=== PATIENT | male | born 1955 | race Two or more races ===

== ENCOUNTER 2023-07-12 18:10 | Emergency (ER) | payer MEDICARE ==
[2023-07-12 18:57] LABS: BILIRUBIN,URINE SMALL (NEGATIVE); GLUCOSE, URINE (UA) NEGATIVE (NEGATIVE); KETONES,URINE (UA) NEGATIVE (NEGATIVE); LEUKOCYTE ESTERASE, URINE MODERATE (NEGATIVE); NITRITE,URINE NEGATIVE (NEGATIVE); OCCULT BLOOD,URINE LARGE (NEGATIVE); PH,URINE 5.5 PH (5.0-7.5); PROTEIN,URINE 100 mg/dL (NEGATIVE); UROBILINOGEN,URINE 0.2 (NORMAL) E.U./dL (NORMAL)
[2023-07-12 18:58] LABS: CLARITY,URINE CLOUDY (CLEAR)
[2023-07-12 19:07] LABS: BACTERIA,URINE Moderate /HPF (None Seen); RBC,URINE TNTC /HPF (0-5); SQUAMOUS EPITHELIAL CELL,UR NONE SEEN (<= Few); WBC,URINE >25 /HPF (0-3)
[2023-07-12] MEDS ORDERED: levoFLOXacin 250 MG TABLET PO STA (20:17)
--- NOTE | 2023-07-12 20:19 | ED Physician Documentation ---
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 Subsequently developed hydronephrosis on the right and has a nephrostomy in place and is getting chemotherapy. For about 2 days has had urinary burning and dysuria as well as frequency. He denies fever, flank pain or general feeling of illness otherwise. No decreased output from his nephrostomy. PD PAST MEDICAL HISTORY - Past Medical History Past Medical History: Yes Other Past Medical History: Grade 1 folicular lymphoma. - Past Surgical History Past Surgical History: Yes - Present Medications Home Medications: Ambulatory Orders Medication Instructions Recorded Confirmed levoFLOXacin [Levofloxacin] 500 mg PO DAILY #9 tablet 07/12/23 - Allergies Allergies/Adverse Reactions: Allergies Allergy/AdvReac Type Severity Reaction Status Date / Time No Known Drug Allergies Allergy Verified 07/12/23 18:28 - Social History Does the pt smoke?: No Smoking Status: Never smoker PD ED PE NORMAL - Vitals Vital signs reviewed: Yes - General General: Alert and oriented X 3, No acute distress - Abdomen Abdomen: Normal bowel sounds, Soft, Non tender - Back Back: Other (Nephrostomy site looking good without redness.) - Neuro Neuro: Alert and oriented X 3, Normal speech Results - Vitals Vitals: Vital Signs - 24 hr 07/12/23 18:19 Temperature 36.4 C L Heart Rate 65 Respiratory 16 Rate Blood Pressure 156/52 H O2 Saturation 99 Oxygen O2 Source Room air - Labs Labs: Laboratory Tests 07/12/23 18:35 Urine Color DARK YELLOW Urine Clarity CLOUDY Urine pH 5.5 Ur Specific [place] 1.025 Urine Protein 100 H Urine Glucose (UA) NEGATIVE Urine Ketones NEGATIVE Urine Occult Blood LARGE H Urine Nitrite NEGATIVE Urine Bilirubin SMALL H Urine Urobilinogen 0.2 (NORMAL) Ur Leukocyte Esterase MODERATE H Urine RBC TNTC H Urine WBC >25 H Ur Squamous Epith Cells NONE SEEN Urine Bacteria Moderate H Ur Microscopic Review INDICATED Urine Culture Comments INDICATED PD Medical Decision Making - ED course ED course: I doubt he has a severe UTI or pyelonephritis. He has no flank pain. No systemic symptoms. Did advise that since he has a nephrostomy he could call his urologist tomorrow as they might want to do a tube exchange but given that he appears well I do not think this is necessary now. Departure - Departure Disposition: 01 Home, Self Care Clinical Impression: Cystitis Condition: Good Instructions: ED UTI Cystitis Male Prescriptions: levoFLOXacin [Levofloxacin] 500 mg PO DAILY #9 tablet Comments: I would recommend you call your urologist tomorrow. They may want to do a tube exchange from your nephrostomy, but I do not think this is necessary now as you do not have systemic symptoms of illness like fever or increased pain of that kidney. We will culture your urine, the results should be done in 48-72 hours. If an antibiotic change is necessary we will call you. Return if worse in the meant jessica, especially if you develop increasing flank pain, fevers, or cannot keep down the medication.
[2023-07-12 20:36] VITALS: BP 153/59; O2SAT 100
== END 2023-07-12 20:34 | disposition home or self-care (01) ==
LOC: ED 18:10
DX: N30.90 Cystitis, unspecified without hematuria (principal); Z93.6 Other artificial openings of urinary tract status
CPT/HCPCS: 81001; 87086; 99283; A9270; 81003

== ENCOUNTER 2023-07-15 11:35 | Emergency (ER) | payer MEDICARE ==
--- NOTE | 2023-07-15 12:20 | XRAY Report ---
PROCEDURE: Chest 1V INDICATIONS: fever TECHNIQUE: One view of the chest was acquired. COMPARISON: None. FINDINGS: Surgical changes and devices: Right-sided Port-A-Cath. Lungs and pleura: No pleural effusions or pneumothorax. Lungs are clear. Mediastinum: Mediastinal contours appear normal. Heart size is normal. Bones and chest wall: No suspicious bony lesions. Overlying soft tissues appear unremarkable. IMPRESSION: No acute cardiopulmonary process. Reviewed by: Aretha Love MD, PhD on 07/15/2023 12:19 PM PST Approved by: Aretha Love MD, PhD on 07/15/2023 12:[address] [facility] Station ID: [id number]
--- NOTE | 2023-07-15 12:33 | ED Physician Documentation ---
History of Present Illness - Stated complaint Stated Complaint: LOW BP - Chief complaint Chief Complaint: General - Additonal information Additional information: 68-year-old gentleman presents to the emergency department today for dizziness and hypertension. 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 He has had a nephrostomy tube since June 22 draining He has had no complications or issues with this since then. He was seen here about a week ago for urinary tract infection was started on levofloxacin reports all symptoms have fully resolved since then.Patient reports he has received 1 dose of IV chemo about a week ago with [facility] he started to feel dizzy this morning took his blood pressure at home was found to be hypotensive systolic blood pressure 90 with a fever of 100.4. No syncopal episode. Urinalysis grew Pseudomonas aeruginosa and Enterobacter both sensitive to levofloxacin. PD PAST MEDICAL HISTORY - Past Medical History Past Medical History: Yes Other Past Medical History: lymphoma - Past Surgical History Past Surgical History: Yes - Present Medications Home Medications: Ambulatory Orders Medication Instructions Recorded Confirmed Atorvastatin [Lipitor] 20 mg PO QPM 07/12/23 07/12/23 Brimonidine Tartrate 1 drops EACHEYE TID 07/12/23 07/12/23 Lisinopril [Zestril] 10 mg PO DAILY 07/12/23 07/12/23 Magnesium Oxide [Magnesium] 1 cap PO DAILY 07/12/23 07/12/23 Ondansetron [Ondansetron Odt] 8 mg PO Q6HR PRN 07/12/23 07/12/23 Tamsulosin [Flomax] 0.4 mg PO DAILY 07/12/23 07/12/23 allopurinoL [Allopurinol] 300 mg PO DAILY 07/12/23 07/12/23 levoFLOXacin [Levofloxacin] 500 mg PO DAILY #9 tablet 07/12/23 - Allergies Allergies/Adverse Reactions: Allergies Allergy/AdvReac Type Severity Reaction Status Date / Time No Known Drug Allergies Allergy Verified 07/15/23 11:45 - Social History Does the pt smoke?: No Smoking Status: Never smoker Does the pt drink ETOH?: No Does the pt have substance abuse?: No - Immunizations Immunizations are current?: Yes - POLST Patient has POLST: No PD ED PE NORMAL - Vitals Vital signs reviewed: Yes - General General: Alert and oriented X 3, No acute distress, Well developed/nourished - HEENT HEENT: Atraumatic, PERRL, EOMI - Neck Neck: Supple, no meningeal sign, No JVD - Cardiac Cardiac: RRR, No murmur, Strong equal pulses - Respiratory Respiratory: No respiratory distress, Clear bilaterally - Abdomen Abdomen: Normal bowel sounds, Non tender, Other (Left nephrostomy tube, incision site does not appear to be infected, no purulent drainage no erythema) - Back Back: No CVA TTP - Derm Derm: Normal color, Warm and dry, No rash - Extremities Extremities: No deformity, No edema - Neuro Neuro: Alert and oriented X 3, back tufter 2-12 intact, No motor deficit, No sensory deficit, Normal speech - Psych Psych: Normal mood Results - Vitals Vitals: Vital Signs - 24 hr 07/15/23 07/15/23 07/15/23 11:41 13:30 14:51 Temperature 36.0 C L Heart Rate 70 55 L 54 L Respiratory 20 15 20 Rate Blood Pressure 117/50 L 126/58 L 117/66 O2 Saturation 100 100 98 Oxygen O2 Source Room air - EKG (time done) 1147 EKG releavant findings:: EKG personally interpreted by author of this note. Relevant findings are: Rate: Rate (enter#) (62) Rhythm: NSR [place]: Normal Intervals: Normal [place] QRS: Normal Ischemia: Normal ST segments Computer interpretation: Agree with computer - Labs Labs: Laboratory Tests 07/15/23 07/15/23 07/15/23 12:21 12:27 12:27 WBC 13.2 H RBC 4.36 L Hgb 12.1 L Hct 37.6 L MCV 86.2 MCH 27.8 MCHC 32.2 RDW 13.2 Plt Count 227 MPV 10.1 Neut # (Auto) 10.9 H Lymph # (Auto) 0.2 L [place] # (Auto) 1.5 H Eos # (Auto) 0.3 Baso # (Auto) 0.0 Absolute Nucleated RBC 0.00 Nucleated RBC % 0.0 Sodium 133 L Potassium 3.9 Chloride 99 L Carbon Dioxide 26 Anion Gap 8.0 BUN 20 Creatinine 1.4 H Estimated GFR (MDRD) 50 L Glucose 104 Lactic Acid 1.6 Calcium 9.3 Total Bilirubin 0.6 AST 25 ALT 42 Alkaline Phosphatase 60 Total Protein 6.6 Albumin 3.8 Globulin 2.8 Albumin/Globulin Ratio 1.4 Nasal Adenovirus (PCR) Nasal B. parapertussis DNA (PCR) Nasal Coronavir 229E PCR Nasal Coronavir HKU1 PCR Nasal Coronavir NL63 PCR Nasal Coronavir OC43 PCR Nasal Enterovir/Rhinovir PCR Nasal Influenza B PCR Nasal Influenza A PCR Nasal Parainfluen 1 PCR Nasal Parainfluen 2 PCR Nasal Parainfluen 3 PCR Nasal Parainfluen 4 PCR Nasal RSV (PCR) Nasal B.pertussis DNA PCR Nasal C.pneumoniae (PCR) Srinivas Human Metapneumo PCR Nasal M.pneumoniae (PCR) Nasal SARS-CoV-2 (PCR) 07/15/23 13:06 WBC RBC Hgb Hct MCV MCH MCHC RDW Plt Count MPV Neut # (Auto) Lymph # (Auto) [place] # (Auto) Eos # (Auto) Baso # (Auto) Absolute Nucleated RBC Nucleated RBC % Sodium Potassium Chloride Carbon Dioxide Anion Gap BUN Creatinine Estimated GFR (MDRD) Glucose Lactic Acid Calcium Total Bilirubin AST ALT Alkaline Phosphatase Total Protein Albumin Globulin Albumin/Globulin Ratio Nasal Adenovirus (PCR) NOT DETECTED Nasal B. parapertussis DNA (PCR) NOT DETECTED Nasal Coronavir 229E PCR NOT DETECTED Nasal Coronavir HKU1 PCR NOT DETECTED Nasal Coronavir NL63 PCR NOT DETECTED Nasal Coronavir OC43 PCR NOT DETECTED Nasal Enterovir/Rhinovir PCR NOT DETECTED Nasal Influenza B PCR NOT DETECTED Nasal Influenza A PCR NOT DETECTED Nasal Parainfluen 1 PCR NOT DETECTED Nasal Parainfluen 2 PCR NOT DETECTED Nasal Parainfluen 3 PCR NOT DETECTED Nasal Parainfluen 4 PCR NOT DETECTED Nasal RSV (PCR) NOT DETECTED Nasal B.pertussis DNA PCR NOT DETECTED Nasal C.pneumoniae (PCR) NOT DETECTED Srinivas Human Metapneumo PCR NOT DETECTED Nasal M.pneumoniae (PCR) NOT DETECTED Nasal SARS-CoV-2 (PCR) NOT DETECTED - Rads (name of study) Chest x-ray Relevant Findings:: Final report received, EMP independent interpretation of test (No acute cardiopulmonary abnormalities, no consolidation) PD Medical Decision Making - ED course ED course: 68-year-old male presents to the emergency department for fever and dizziness. He was given 1 L of IV fluids which patient reports made him feel significantly better and his dizziness is now almost entirely resolved. Patient does have slight leukocytosis, WBC 13.2, hemoglobin also slightly low, 12.1, hematocrit 37.6. Sodium is also slightly low most likely due to dehydration, 133 and Creatinine1.4, GFR 50. Respiratory panel is negative. Chest x-ray was also completed which did not reveal any consolidation or other acute abnormalities that could be contributing to patient's reported fever he had at home. He did not have any fevers here in the emergency department but 2 sets of blood cultures were collected for further evaluation of his fever. Be cause patient is already on antibiotics for his UTI, he is on day 3 of levofloxacin I decided to hold off on adding any additional antibiotics at this time. Patient was informed that his blood cultures will take 2 to 3 days to grow and we will call him if any antibiotic changes need to happen or patient needs to come back to the emergency department for IV antibiotics. Patient was told to monitor his vitals and his fever at home and if his fever returns to come back to the emergency department.Patient understands strict return precautions and was told to follow-up with his oncologist at [facility] about his emergency department visit, his fever, and antibiotics that he is on. All questions answered patient safe for discharge at this time. Departure - Departure Disposition: 01 Home, Self Care Clinical Impression: Fever of unknown origin, Dehydration Follicular lymphoma Qualifiers: Follicular lymphoma type: unspecified follicular type Lymphoma site: unspecified region Qualified Code(s): C82.90 - Follicular lymphoma, unspecified, unspecified site Condition: Good Instructions: ED Dehydration Comments: Thank you for trusting us with your care. You have received some IV fluids and you have appeared to respond well to these and your dizziness has now resolved. We did collect 2 sets of blood cultures and have sent it to the lab as we discussed this takes 2 to 3 days we will call you if there are any abnormal results. Please follow-up with your oncologist to let them know about your ER visit and further evaluation of your fever. Continue to take the levofloxacin antibiotic that you are on for your UTI and please come back to the emergency department for continuing to spike fevers, persistent dizziness, or any other concerning symptoms. Forms: PCP List Discharge Date/Time: 07/15/23 14:56
[2023-07-15 12:36] LABS: BASOPHILS % (AUTO) 0.3 %; EOSINOPHILS # (AUTO) 0.3 10^3/uL (0.0-0.7); EOSINOPHILS % (AUTO) 1.9 %; HCT - HEMATOCRIT 37.6 % (42.0-52.0); HGB - HEMOGLOBIN 12.1 g/dL (14.0-18.0); LYMPHOCYTES # (AUTO) 0.2 10^3/uL (1.5-3.5); LYMPHOCYTES % (AUTO) 1.5 %; MEAN CORPUSCULAR HEMOGLOBIN 27.8 pg (27.0-31.0); MEAN CORPUSCULAR HGB CONC 32.2 g/dL (32.0-36.0); MEAN CORPUSCULAR VOLUME 86.2 fL (80.0-94.0); MEAN PLATELET VOLUME 10.1 fL (7.4-11.4); MONOCYTES # (AUTO) 1.5 10^3/uL (0.0-1.0); MONOCYTES % (AUTO) 11.7 %; NEUTROPHILS # (AUTO) 10.9 10^3/uL (1.5-6.6); NEUTROPHILS % (AUTO) 82.8 %; PLT - PLATELET COUNT 227 10^3/uL (130-450); RED BLOOD COUNT 4.36 10^6/uL (4.70-6.10); RED CELL DISTRIBUTION WIDTH 13.2 % (12.0-15.0); WHITE BLOOD COUNT 13.2 x10^3/uL (4.8-10.8)
[2023-07-15] MEDS ORDERED: SODIUM CHLORIDE 0.9% 1,000 ML IV ONE (12:40)
[2023-07-15 12:55] LABS: ALBUMIN 3.8 g/dL (3.2-5.5); ALBUMIN/GLOBULIN RATIO 1.4 (1.0-2.2); BILIRUBIN,TOTAL 0.6 mg/dL (0.2-1.0); CALCIUM 9.3 mg/dL (8.5-10.3); CREATININE 1.4 mg/dL (0.6-1.3); POTASSIUM 3.9 mmol/L (3.5-4.5); TOTAL PROTEIN 6.6 g/dL (6.4-8.9)
[2023-07-15 14:05] LABS: B. PARAPERTUSSIS- RESP PCR PAN NOT DETECTED; B. PERTUSSIS- RESP PCR PANEL NOT DETECTED; C. PNEUMONIAE- RESP PCR PANEL NOT DETECTED; CORONAVIRUS 229E-RESP PCR NOT DETECTED; CORONAVIRUS HKU1-RESP PCR NOT DETECTED; CORONAVIRUS NL63-RESP PCR NOT DETECTED; CORONAVIRUS OC43-RESP PCR NOT DETECTED; HUMAN METAPNEUMOVIRUS NOT DETECTED; INFLUENZA A- RESP PCR PANEL NOT DETECTED; INFLUENZA B - RESP PCR PANEL NOT DETECTED; M. PNEUMONIAE- RESP PCR PANEL NOT DETECTED; PARAINFLUENZA VIRUS 1 NOT DETECTED; PARAINFLUENZA VIRUS 2 NOT DETECTED; PARAINFLUENZA VIRUS 3 NOT DETECTED; PARAINFLUENZA VIRUS 4 NOT DETECTED; RHINOVIRUS/ENTEROVIRUS NOT DETECTED; RSV- RESP PCR PANEL NOT DETECTED; SARS-CoV-2 -RESP PCR PANEL NOT DETECTED
[2023-07-15 15:00] VITALS: BP 117/66; O2SAT 98
== END 2023-07-15 14:56 | disposition home or self-care (01) ==
LOC: ED 11:35
DX: R50.9 Fever, unspecified (principal); E86.0 Dehydration; N39.0 Urinary tract infection, site not specified; C82.90 Follicular lymphoma, unspecified, unspecified site; Z79.899 Other long term (current) drug therapy
CPT/HCPCS: 36415; 80053; 83605; 85025; 87040; 87633; 93005; 96360; 99284

== ENCOUNTER 2023-08-25 08:36 | Emergency (ER) | payer MEDICARE ==
--- NOTE | 2023-08-25 08:52 | ED Physician Documentation ---
PD HPI ABD PAIN - Stated complaint Stated Complaint: BACK PX,FLANK PX - History obtained from History obtained from: Patient - History of Present Illness Timing - onset: Last night Timing - details: Gradual onset, Waxing and waning Quality: Cramping, Aching, Pain Location: LUQ, LLQ Radiation: Left flank Associated symptoms: Nausea. No: Fever, Vomiting, Diarrhea, Constipation Similar symptoms before: Diagnosis (He states it feels similar to when his ureter was clogged prior to the tube. He says the urostomy is still draining.) Review of Systems Constitutional: denies: Fever, Chills GI: denies: Vomiting, Constipation, Diarrhea : denies: Dysuria PD PAST MEDICAL HISTORY - Past Surgical History Past Surgical History: Yes - Present Medications Home Medications: Ambulatory Orders Medication Instructions Recorded Confirmed Atorvastatin [Lipitor] 20 mg PO QPM 07/12/23 08/25/23 Brimonidine Tartrate 1 drops EACHEYE TID 07/12/23 08/25/23 Magnesium Oxide [Magnesium] 1 cap PO DAILY 07/12/23 08/25/23 Ondansetron [Ondansetron Odt] 8 mg PO Q6HR PRN 07/12/23 08/25/23 Tamsulosin [Flomax] 0.4 mg PO DAILY 07/12/23 08/25/23 Meloxicam [Mobic] 7.5 mg PO BID 10 Days #20 tablet 08/25/23 Prochlorperazine Maleate 10 mg PO DAILY 08/25/23 08/25/23 cephALEXin [Keflex] 500 mg PO TID #20 cap 08/25/23 oxyCODONE [Roxicodone] 1 - 2 tab PO PRN PRN 08/25/23 08/25/23 Ciprofloxacin HCl [Cipro] 500 mg PO BID #14 tablet 08/27/23 - Allergies Allergies/Adverse Reactions: Allergies Allergy/AdvReac Type Severity Reaction Status Date / Time No Known Drug Allergies Allergy Verified 08/25/23 08:58 - Social History Does the pt smoke?: No Smoking Status: Never smoker Does the pt drink ETOH?: No Does the pt have substance abuse?: No - Immunizations Immunizations are current?: Yes - POLST Patient has POLST: No PD ED PE NORMAL - Vitals Vital signs reviewed: Yes - General General: Alert and oriented X 3, Well developed/nourished - Neck Neck: Supple, no meningeal sign, No adenopathy - Cardiac Cardiac: RRR, No murmur - Respiratory Respiratory: No respiratory distress, Clear bilaterally - Abdomen Abdomen: Normal bowel sounds, Soft, Non distended, Other (mild tender left upper abd. Some enlargement of spleen by palpation. ) - Back Back: Other (urotstomy tube from left flank laterally without redness, swelling, draiange. ) - Derm Derm: Normal color, Warm and dry - Extremities Extremities: No edema, No calf tenderness / cord Results - Vitals Vitals: Oxygen O2 Source Room air - Labs Labs: Microbiology 08/25/23 10:05 Urine Culture - Final Urine,Catheterized Enterobacter Cloacae Complex Laboratory Tests 08/25/23 08/25/23 08/25/23 09:54 09:54 10:05 WBC 4.7 L RBC 3.76 L Hgb 10.1 L Hct 32.6 L MCV 86.7 MCH 26.9 L MCHC 31.0 L RDW 15.6 H Plt Count 181 MPV 9.0 Neut # (Auto) 2.9 Lymph # (Auto) 0.7 L [place] # (Auto) 0.9 Eos # (Auto) 0.1 Baso # (Auto) 0.0 Absolute Nucleated RBC 0.00 Nucleated RBC % 0.0 Sodium 136 Potassium 4.1 Chloride 105 Carbon Dioxide 27 Anion Gap 4.0 L BUN 16 Creatinine 1.0 Estimated GFR (MDRD) 74 L Glucose 103 Calcium 8.9 Magnesium 2.0 Total Bilirubin 0.5 AST 20 ALT 28 Alkaline Phosphatase 57 Total Protein 6.0 L Albumin 3.4 Globulin 2.6 Albumin/Globulin Ratio 1.3 Lipase 12 Urine Color YELLOW Urine Clarity [place]. CLOUDY Urine pH 6.0 Ur Specific [place] >=1.030 H Urine Protein 100 H Urine Glucose (UA) NEGATIVE Urine Ketones NEGATIVE Urine Occult Blood MODERATE H Urine Nitrite NEGATIVE Urine Bilirubin NEGATIVE Urine Urobilinogen 0.2 (NORMAL) Ur Leukocyte Esterase MODERATE H Urine RBC 0-5 Urine WBC >25 H Urine WBC Clumps PRESENT Ur Squamous Epith Cells RARE Squamous Urine Bacteria Moderate H Ur Microscopic Review INDICATED Urine Culture Comments INDICATED - Rads (name of study) abd/pelvic CT Relevant Findings:: Prelim report reviewed (urostomy tube inplace, no fluid collection/abscess. Mass left psoas and left abd area. ), EMP independent interpretation of test PD Medical Decision Making - ED course Complexity details: reviewed results (No obvious signs of urinary infection. The CT scan shows that the urostomy tube in place and no fluid collection surrounding. There is a mass in the left side consistent with his previous lymphoma. No other acute findings.), considered differential (He has a urostomy drainage. It appears to be draining okay. We do not have the bag attachment type for the Luer-Lizzette that he has. He is due to see them soon for a change of the urostomy tube anyway.), d/w patient, d/w pre owned sales consultant (I talked with [facility] out of [place] and the provider suggested placing the patient on antibiotics for the possibility of infection. The CT scan did not show any s igns of abscess or urinoma or other concerns. The previously known lymphoma was still visible. We will transmit images over.) Departure - Departure Disposition: 01 Home, Self Care Clinical Impression: Flank pain, History of urostomy, Lymphoma Condition: Stable Record reviewed to determine appropriate education?: Yes Follow-Up: Antonio Verdin MD [Primary Care Provider] - [facility] [Provider Group] Prescriptions: Ciprofloxacin HCl [Cipro] 500 mg PO BID #14 tablet cephALEXin [Keflex] 500 mg PO TID #20 cap Meloxicam [Mobic] 7.5 mg PO BID 10 Days #20 tablet Comments: Your CT scan showed the nephrostomy tube to be in the correct position and draining well. No signs of fluid collections. There was a lymphomatous mass noted. We do not have the prior images for you for comparison. Your provider can request these sent to them for comparison to your prior ones. At this point no obvious signs of complication from the urostomy tube or other acute abnormalities that were not known. I presume some inflammation or such causing the pain that you have. You can take some anti-inflammatory such as your previous ibuprofen. Alternatively I prescribed some meloxicam which is just twice a day with similar effect. To that add Tylenol 500 to 650 mg 4 times a day for the next several days to week. Add your pain pills if needed. Your urine sample does show concern for infection and this might be causing some ear pain. Cephalexin as prescribed for the next week. We will get a urine culture result from this in the next couple of days to verify if true infection and also to help modify or confirm antibiotic choice. We do have a call out to your urologist at [facility]. Will see if they want to see you sooner than planned because of your symptoms and such. Otherwise continue your current treatments. I sent your prescription to [facility] pharmacy. Forms: PCP List Discharge Date/Time: 08/25/23 14:19
[2023-08-25 09:59] LABS: BASOPHILS % (AUTO) 0.9 %; EOSINOPHILS # (AUTO) 0.1 10^3/uL (0.0-0.7); EOSINOPHILS % (AUTO) 1.1 %; HCT - HEMATOCRIT 32.6 % (42.0-52.0); HGB - HEMOGLOBIN 10.1 g/dL (14.0-18.0); LYMPHOCYTES # (AUTO) 0.7 10^3/uL (1.5-3.5); LYMPHOCYTES % (AUTO) 14.6 %; MEAN CORPUSCULAR HEMOGLOBIN 26.9 pg (27.0-31.0); MEAN CORPUSCULAR VOLUME 86.7 fL (80.0-94.0); MONOCYTES # (AUTO) 0.9 10^3/uL (0.0-1.0); MONOCYTES % (AUTO) 19.7 %; NEUTROPHILS # (AUTO) 2.9 10^3/uL (1.5-6.6); NEUTROPHILS % (AUTO) 62.6 %; PLT - PLATELET COUNT 181 10^3/uL (130-450); RED BLOOD COUNT 3.76 10^6/uL (4.70-6.10); RED CELL DISTRIBUTION WIDTH 15.6 % (12.0-15.0); WHITE BLOOD COUNT 4.7 x10^3/uL (4.8-10.8)
[2023-08-25] MEDS: cefTRIAXone 1 GM VIAL IVP STA (09:59)
[2023-08-25] MEDS: SODIUM CHLORIDE 0.9% 1,000 ML IV STA (10:01)
[2023-08-25] MEDS: KETOROLAC 15 MG/ML VIAL IVP STA (10:06)
[2023-08-25 10:12] LABS: ALBUMIN 3.4 g/dL (3.2-5.5); ALBUMIN/GLOBULIN RATIO 1.3 (1.0-2.2); BILIRUBIN,TOTAL 0.5 mg/dL (0.2-1.0); CALCIUM 8.9 mg/dL (8.5-10.3); POTASSIUM 4.1 mmol/L (3.5-4.5)
[2023-08-25 10:15] LABS: BILIRUBIN,URINE NEGATIVE (NEGATIVE); GLUCOSE, URINE (UA) NEGATIVE (NEGATIVE); KETONES,URINE (UA) NEGATIVE (NEGATIVE); LEUKOCYTE ESTERASE, URINE MODERATE (NEGATIVE); NITRITE,URINE NEGATIVE (NEGATIVE); OCCULT BLOOD,URINE MODERATE (NEGATIVE); PROTEIN,URINE 100 mg/dL (NEGATIVE); UROBILINOGEN,URINE 0.2 (NORMAL) E.U./dL (NORMAL)
[2023-08-25 10:17] LABS: CLARITY,URINE SL. CLOUDY (CLEAR)
[2023-08-25] MEDS ORDERED: iohexoL-300 100 ML VIAL ONE (10:20)
[2023-08-25 10:34] LABS: BACTERIA,URINE Moderate /HPF (None Seen); RBC,URINE 0-5 /HPF (0-5); SQUAMOUS EPITHELIAL CELL,UR RARE Squamous (<= Few); WBC CLUMPS,URINE PRESENT; WBC,URINE >25 /HPF (0-3)
[2023-08-25 12:12] VITALS: O2SAT 100
[2023-08-25] MEDS: iohexoL-300 100 ML VIAL IVP ONE (12:22)
--- NOTE | 2023-08-25 12:26 | CT Report ---
PROCEDURE: IVP INDICATIONS: left nephrostomy tube/lymphoma/ pain x 1 day CONTRAST: Omni 300 140ml TECHNIQUE: A [address] of the abdomen and pelvis was performed. Non-contrast and contrast images were recorded and evaluated at appropriate window settings. Images were recorded and evaluated at appropriate windo w settings. Reformats: coronal and sagittal. For radiation dose reduction, the following was used: au tomated exposure control, adjustment of convex left scoliosis. 3 interval casting with improved align ment at the tibia and fibula fractures. MA and/or kV according to patient size. COMPARISON: None. FINDINGS: Image quality: Diagnostic. Urinary system: Left-sided nephrostomy in place. Both kidneys enhance and excrete contrast appropriat sepideh. 2 several right renal peripelvic cysts present. No hydronephrosis bilaterally. There is a left-s ided large matted retroperitoneal mass lesion invading the left psoas muscle and extending under the aorta as well as completely surrounding the left renal artery. Additional smaller right-sided retrope ritoneal enlarged lymph nodes noted measuring up to 1.3 cm. OTHER Lower chest: Unremarkable. Liver: No solid mass. Gallbladder and biliary tree: Spleen: No splenomegaly. Pancreas: No pancreatic ductal dilation. Adrenals: No adrenal nodule. Stomach, bowel and peritoneum: No bowel distension. No pathologic free fluid. Abdominal Lymph nodes: As above Vessels: Atherosclerotic aortic vascular calcification without aneurysm Reproductive organs: Prosthetic enlargement elevates the bladder floor. Associated bladder wall thick ening noted Pelvic Lymph nodes: Unremarkable. Bones: Degenerative disc disease and arthropathy in the lower lumbar spine. Bilateral inguinal hernia s containing fat without bowel involvement. No lytic or blastic lesion. Other: None. IMPRESSION: 1. Patent left-sided nephrostomy tube without evidence of obstructive uropathy bilaterally. 2. Large left perirenal retroperitoneal matted mass lesion with invasion of the psoas muscle and 360 degree in envelopment of the left renal artery. Reviewed by: Herrera Schmitt MD on 08/25/2023 11:24 AM [facility] Approved by: Herrera Schmitt MD on 08/25/2023 11:24 AM [facility] Station ID: [id number]
[2023-08-25 13:58] VITALS: BP 132/65
--- NOTE | 2023-08-27 13:10 | ED Physician Documentation ---
ED Addendum - Addendum Addendum: 08/27/23 13:09 The patient's urine culture came back showing Enterobacter cloacae. It is resistant to cefazolin. It is sensitive to cefepime so there may be some activity in the cephalosporins generally. However going with the culture result, we will presume the cephalexin is off target and will change to ciprofloxacin which does show sensitivity by culture. He is not allergic to any medicines. I will send the prescription to his preferred pharmacy. Nursing will call and notify the patient.
== END 2023-08-25 14:19 | disposition home or self-care (01) ==
LOC: ED 08:36
DX: R10.12 Left upper quadrant pain (principal); R10.32 Left lower quadrant pain; N39.0 Urinary tract infection, site not specified; B96.89 Other specified bacterial agents as the cause of diseases classified elsewhere; Z85.72 Personal history of non-Hodgkin lymphomas; Z93.6 Other artificial openings of urinary tract status
CPT/HCPCS: 36415; 74178; 80053; 81001; 83690; 83735; 85025; 87077; 87086; 87181; 96374; 96375; 99284; 99285; Q9967; 81003

== ENCOUNTER 2023-09-17 06:05 | Emergency (ER) | payer MEDICARE ==
--- NOTE | 2023-09-17 06:21 | ED Physician Documentation ---
PD HPI ABD PAIN - Stated complaint Stated Complaint: ABD PX - Chief complaint Chief Complaint: Abd Pain - History obtained from History obtained from: Patient - Additional information Additional information: HPI from patient. Patient complains of abdominal pain, gradual onset yesterday without specific inciting event. The pain is generalized but predominantly across his lower abdomen. Pain is exacerbated with palpation. He has had mild nausea but no vomiting. Denies fever. The patient was recently evaluated in the outpatient setting in an urgent care facility for left flank pain; per patient, testing at that time indicated a urinary tract infection for which he was prescribed Cipro. The abdominal pain that the patient is having on his current ED presentation is different from the flank pain for which he was recently evaluated. Past medical history is significant for lymphoma; a CT scan of his abdomen pelvis performed last month showed large left perirenal retroperitoneal matted mass lesion with invasion of the psoas muscle and 360-degree envelopment of the left renal artery. Patient says he has been diagnosed with lymphoma and is undergoing chemotherapy; his most recent chemotherapy was earlier this month and his next chemotherapy is scheduled for the beginning of next month. The patient has a left-sided nephrostomy tube in place since last May which, by patient's d escription, was placed due to the mass lesion causing obstruction of the left ureter. Review of Systems Constitutional: denies: Fever, Chills, Sweats Cardiac: reports: Reviewed and negative Respiratory: reports: Reviewed and negative GI: reports: Abdominal Pain, Nausea. denies: Vomiting PD PAST MEDICAL HISTORY - Past Medical History Past Medical History: Yes Cardiovascular: High cholesterol : Benign prostate hypertrophy Other Past Medical History: Spleen CA - Past Surgical History Past Surgical History: Yes - Present Medications Home Medications: Ambulatory Orders Medication Instructions Recorded Confirmed Atorvastatin [Lipitor] 20 mg PO QPM 07/12/23 08/25/23 Brimonidine Tartrate 1 drops EACHEYE TID 07/12/23 08/25/23 Magnesium Oxide [Magnesium] 1 cap PO DAILY 07/12/23 08/25/23 Ondansetron [Ondansetron Odt] 8 mg PO Q6HR PRN 07/12/23 08/25/23 Tamsulosin [Flomax] 0.4 mg PO DAILY 07/12/23 08/25/23 Meloxicam [Mobic] 7.5 mg PO BID 10 Days #20 tablet 08/25/23 Prochlorperazine Maleate 10 mg PO DAILY 08/25/23 08/25/23 cephALEXin [Keflex] 500 mg PO TID #20 cap 08/25/23 oxyCODONE [Roxicodone] 1 - 2 tab PO PRN PRN 08/25/23 08/25/23 Ciprofloxacin HCl [Cipro] 500 mg PO BID #14 tablet 08/27/23 - Allergies Allergies/Adverse Reactions: Allergies Allergy/AdvReac Type Severity Reaction Status Date / Time No Known Drug Allergies Allergy Verified 09/17/23 06:15 - Social History Does the pt smoke?: No Smoking Status: Never smoker Does the pt drink ETOH?: No Does the pt have substance abuse?: No - Immunizations Immunizations are current?: Yes - POLST Patient has POLST: No PD ED PE NORMAL - Vitals Vital signs reviewed: Yes - General General: Alert and oriented X 3, No acute distress, Well developed/nourished - Cardiac Cardiac: RRR, No murmur - Respiratory Respiratory: No respiratory distress, Clear bilaterally - Abdomen Abdomen: Soft, Non distended, Other (moderate TTP across lower abdomen without rebound or guarding. left-sided nephrostomy tube is in place and site of entry is without erythema, swelling, tenderness) - Derm Derm: Normal color, Warm and dry Results - Vitals Vitals: Vital Signs - 24 hr 09/17/23 06:10 Temperature 36.8 C Heart Rate 79 Respiratory 16 Rate Blood Pressure 142/70 H O2 Saturation 100 Oxygen O2 Source Room air - Labs Labs: Laboratory Tests 09/17/23 09/17/23 09/17/23 06:31 06:31 06:31 WBC 6.2 RBC 3.92 L Hgb 10.2 L Hct 32.0 L MCV 81.6 MCH 26.0 L MCHC 31.9 L RDW 15.0 Plt Count 194 MPV 9.2 Neut # (Auto) 4.6 Lymph # (Auto) 0.4 L Fleming # (Auto) 1.0 Eos # (Auto) 0.1 Baso # (Auto) 0.0 Absolute Nucleated RBC 0.00 Nucleated RBC % 0.0 Sodium 137 Potassium 3.9 Chloride 104 Carbon Dioxide 24 Anion Gap 9.0 BUN 15 Creatinine 1.0 Estimated GFR (MDRD) 74 L Glucose 109 H Calcium 9.0 Total Bilirubin 0.3 AST 14 ALT 12 Alkaline Phosphatase 55 Total Protein 6.3 L Albumin 3.5 Globulin 2.8 Albumin/Globulin Ratio 1.3 Lipase 16 Urine Color YELLOW Urine Clarity CLEAR Urine pH 7.0 Ur Specific [place] 1.015 Urine Protein NEGATIVE Urine Glucose (UA) NEGATIVE Urine Ketones NEGATIVE Urine Occult Blood TRACE-INTA Urine Nitrite NEGATIVE Urine Bilirubin NEGATIVE Urine Urobilinogen 0.2 (NORMAL) Ur Leukocyte Esterase NEGATIVE Ur Microscopic Review NOT INDICATED Urine Culture Comments NOT INDICATED PD Medical Decision Making - ED course Complexity details: reviewed old records, reviewed results, re-evaluated patient, considered differential, d/w patient ED course: Results of CBC, ER abdominal panel, and urinalysis are pending at the end of my shift. Care of patient is turned over to oncoming ED physician (Dr. Silverio). He will likely benefit from CT scan of abdomen and pelvis provided his kidney function tests allow for IV contrast. I discussed options for pain control with the patient and he prefers non-narcotic medication and thus he is given 15 mg of IV Toradol. Departure - Departure Forms: PCP List
[2023-09-17 06:34] LABS: BASOPHILS % (AUTO) 0.6 %; EOSINOPHILS # (AUTO) 0.1 10^3/uL (0.0-0.7); EOSINOPHILS % (AUTO) 0.8 %; HGB - HEMOGLOBIN 10.2 g/dL (14.0-18.0); LYMPHOCYTES # (AUTO) 0.4 10^3/uL (1.5-3.5); MEAN CORPUSCULAR HGB CONC 31.9 g/dL (32.0-36.0); MEAN CORPUSCULAR VOLUME 81.6 fL (80.0-94.0); MEAN PLATELET VOLUME 9.2 fL (7.4-11.4); MONOCYTES % (AUTO) 16.2 %; NEUTROPHILS # (AUTO) 4.6 10^3/uL (1.5-6.6); NEUTROPHILS % (AUTO) 74.8 %; PLT - PLATELET COUNT 194 10^3/uL (130-450); RED BLOOD COUNT 3.92 10^6/uL (4.70-6.10); WHITE BLOOD COUNT 6.2 x10^3/uL (4.8-10.8)
[2023-09-17 06:51] LABS: BILIRUBIN,URINE NEGATIVE (NEGATIVE); GLUCOSE, URINE (UA) NEGATIVE (NEGATIVE); KETONES,URINE (UA) NEGATIVE (NEGATIVE); LEUKOCYTE ESTERASE, URINE NEGATIVE (NEGATIVE); NITRITE,URINE NEGATIVE (NEGATIVE); OCCULT BLOOD,URINE TRACE-INTA (NEGATIVE); PROTEIN,URINE NEGATIVE (NEGATIVE); UROBILINOGEN,URINE 0.2 (NORMAL) E.U./dL (NORMAL)
[2023-09-17 06:52] LABS: CLARITY,URINE CLEAR (CLEAR)
[2023-09-17] MEDS: KETOROLAC 15 MG/ML VIAL IVP STA (06:58)
[2023-09-17 07:02] LABS: ALBUMIN 3.5 g/dL (3.2-5.5); ALBUMIN/GLOBULIN RATIO 1.3 (1.0-2.2); BILIRUBIN,TOTAL 0.3 mg/dL (0.2-1.0); POTASSIUM 3.9 mmol/L (3.5-4.5); TOTAL PROTEIN 6.3 g/dL (6.4-8.9)
[2023-09-17] MEDS ORDERED: iohexoL-300 100 ML VIAL ONE (07:44)
[2023-09-17] MEDS: iohexoL-300 100 ML VIAL IVP ONE (08:07)
[2023-09-17 08:32] LABS: BILIRUBIN,URINE NEGATIVE (NEGATIVE); GLUCOSE, URINE (UA) NEGATIVE (NEGATIVE); KETONES,URINE (UA) NEGATIVE (NEGATIVE); LEUKOCYTE ESTERASE, URINE MODERATE (NEGATIVE); NITRITE,URINE NEGATIVE (NEGATIVE); OCCULT BLOOD,URINE MODERATE (NEGATIVE); PH,URINE 6.5 PH (5.0-7.5); PROTEIN,URINE 100 mg/dL (NEGATIVE); UROBILINOGEN,URINE 0.2 (NORMAL) E.U./dL (NORMAL)
[2023-09-17 08:37] LABS: CLARITY,URINE HAZY (CLEAR)
--- NOTE | 2023-09-17 08:37 | CT Report ---
PROCEDURE: Abdomen/Pelvis W INDICATIONS: abdominal pain CONTRAST: 100ml omni 300 TECHNIQUE: After the administration of intravenous contrast, a CT scan of the abdomen and pelvis was performed. Images were recorded and evaluated at appropriate window settings. Reformats: coronal and sagittal. F or radiation dose reduction, the following was used: automated exposure control, adjustment of mA and /or kV according to patient size. COMPARISON: CT abdomen and pelvis, 08/25/2023. FINDINGS: Image quality: Diagnostic. Lower chest: Small left pleural effusion with left basilar atelectasis, new. Liver: No solid mass. Gallbladder and biliary tree: No radiopaque gallstones. No biliary dilation. Spleen: There are multiple hypodense nodules in spleen, suspicious for metastasis. Pancreas: No pancreatic ductal dilation. Adrenals: No adrenal nodule. Kidneys and ureters: There is a percutaneous left nephrostomy tube in expected position. Mild left re nal pelviectasis. Right kidney is normal. No renal cystic lesion which requires follow up. No solid m ass. Retroperitoneum: There is a large left paratracheal mass measuring 9.9 x 8.1 x 12.8 cm adjacent to th e left renal hilum. Is narrowing of the left renal artery and left renal vein. There is posterior ext ension of the mass in medial left psoas muscle. The mass may be originated from the left ureter or dalal s invaded into the left ureter. Stomach, bowel and peritoneum: No bowel distension. No pathologic free fluid. Lymph nodes: No central or retroperitoneal adenopathy. Vessels: No infrarenal aortic aneurysm. PELVIS Reproductive organs: Unremarkable. Bladder: No abnormal wall thickening, accounting for underdistention. Pelvic lymph nodes: No pelvic adenopathy by size criteria. Bones: No aggressive osseous abnormality. There is multiple indeterminate sclerotic foci, involving L 1, L2 and S1, right iliac bone, pubis bilaterally and right proximal femur unchanged. Other: No significant ventral or inguinal hernia. IMPRESSION: 1. There is a percutaneous left nephrostomy tube in expected position. There is mild left renal pelvi ectasis. Recommend clinical assessment for appropriate functioning of the percutaneous nephrostomy tu be. 2. Large] hematoma in the area of the left renal hilum measuring 9.9 x 8.1 x 12.8 cm, slightly enlarg ed since the last exam. There is narrowing of the left renal artery and left renal vein. There is inv asion of the adjacent psoas muscle. The mass may be originated from the left ureter or has invaded in to the left ureter. Alternatively, the mass may represent a large metastatic lymph node. 3. Multiple hypodense nodules in spleen suspicious for metastasis. Because of different technique, th e finding was not as well seen on the last exam. 4. New small left effusion with left basilar atelectasis. 5. Stable small indeterminate sclerotic foci are unchanged. Reviewed by: Tati Redding MD on 09/17/2023 8:36 AM PDT Approved by: Tati Redding MD on 09/17/2023 8:36 AM PDT Station ID: [id number]
[2023-09-17 08:56] LABS: BACTERIA,URINE Few /HPF (None Seen); RBC,URINE 0-5 /HPF (0-5); SQUAMOUS EPITHELIAL CELL,UR NONE SEEN (<= Few); YEAST,URINE PRESENT
--- NOTE | 2023-09-17 11:41 | ED Physician Documentation ---
ED Addendum - Addendum Addendum: Faheem Castano is left in my care at shift change with a CT scan of the abdomen pelvis pending. The results of the CT abdomen pelvis are as below. 09/17/23 11:40 Impression: 1. There is a percutaneous left gastrostomy tube in place in expected position. There is mild left renal pelvictasis. Recommended clinical assessment for appropriate functioning of the percutaneous nephrostomy tube. 2. Large hematoma in the area of the left renal hilum measuring 9.9 x 8.1 x 12.8 cm slightly enlarged since last exam. There is narrowing the left renal artery and left renal vein. There is invasion of the adjacent psoas muscle. The mass may be originated from the left ureter or has invaded into the left ureter. Alternatively, the mass may represent a large metastatic lymph node. 3. Multiple hypodense nodules in the spleen suspicious for metastasis. Because of different technique, the finding was not as well-seen on the last exam. 4. New small left effusion with left basilar atelectasis. 5. Stable small indeterminate sclerotic foci are unchanged Mr. Castano presented to our emergency department early in the morning with severe abdominal pain and a burning-like nature. Like he had eaten something too spicy. His pain is now resolved. He indicates that when he got home from work last night at midnight he took his Cipro. He indicates that he had had some coffee and bread about 2 hours prior. He states that his pain started shortly after taking his Cipro. I suspect this is the culprit of taking the Cipro on an empty stomach. I discussed these findings with the patient and he is indicating to me that he is getting some early satiety that usually takes about an hour to 2 to resolve. 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 Today we are discharging Mr. Gamble with a diagnosis of GI intolerance of Cipro and I have recommended he take the cipro with food. The organisms cultured from the patient's urine are both sensitive to the Cipro. There are other multiple resistances. Impression: GI intolerance to cipro Plan: continue cipro and take with food. F/U with urology and oncology as planned. 09/17/23 12:54 09/17/23 15:44 Departure - Departure Disposition: 01 Home, Self Care Clinical Impression: Antibiotic drug intolerance Condition: Stable Instructions: Tips Taking Meds Follow-Up: Your, Aaron doctor [Other] Comments: Faheem, today it looks like the severe pain you had in your abdomen was an intolerance to the Cipro taken on an empty stomach. My recommendation is to take some food along with the Cipro and if you are still unable to tolerate this, contact your primary care doctor for an antibiotic switch. The Cipro looks like it is the antibiotic you should be on as there are 2 organisms, both of which are sensitive to it. Follow-up with your oncologist and urologist as previously planned. Forms: PCP List Discharge Date/Time: 09/17/23 13:11
[2023-09-17 13:20] VITALS: BP 152/76; O2SAT 98
== END 2023-09-17 13:11 | disposition home or self-care (01) ==
LOC: ED 06:05
DX: R10.84 Generalized abdominal pain (principal); T36.8X5A Adverse effect of other systemic antibiotics, initial encounter; Z93.1 Gastrostomy status; C85.83 Other specified types of non-Hodgkin lymphoma, intra-abdominal lymph nodes; E78.00 Pure hypercholesterolemia, unspecified; N40.0 Benign prostatic hyperplasia without lower urinary tract symptoms; Z79.899 Other long term (current) drug therapy
CPT/HCPCS: 36415; 74177; 80053; 81001; 81003; 83690; 85025; 87086; 96374; 99284; Q9967

== ENCOUNTER 2023-11-02 18:03 | Inpatient (IN) | payer MEDICARE ==
[2023-11-02 19:00] LABS: HCT - HEMATOCRIT 28.4 % (42.0-52.0); HGB - HEMOGLOBIN 8.8 g/dL (14.0-18.0); LYMPHOCYTES # (AUTO) 0.1 10^3/uL (1.5-3.5); LYMPHOCYTES % (AUTO) 62.5 %; MEAN CORPUSCULAR HEMOGLOBIN 23.8 pg (27.0-31.0); MEAN CORPUSCULAR VOLUME 76.8 fL (80.0-94.0); MONOCYTES % (AUTO) 12.5 %; RED CELL DISTRIBUTION WIDTH 16.2 % (12.0-15.0)
[2023-11-02 19:16] LABS: ALBUMIN 2.7 g/dL (3.2-5.5); ALKALINE PHOSPHATASE 209 IU/L (42-121); ALT ALANINE AMINOTRANSFERASE 87 IU/L (10-60); AST ASPARTATE AMINOTRANSFERASE 47 IU/L (10-42); BILIRUBIN,TOTAL 0.9 mg/dL (0.2-1.0); BUN - BLOOD UREA NITROGEN 24 mg/dL (6-20); CALCIUM 8.9 mg/dL (8.5-10.3); CARBON DIOXIDE - CO2 25 mmol/L (21-32); CHLORIDE 97 mmol/L (101-111); CREATININE 1.3 mg/dL (0.6-1.3); GFR - MDRD 55 (>89); GLUCOSE 159 mg/dL (74-104); POTASSIUM 4.4 mmol/L (3.5-4.5); SODIUM 130 mmol/L (135-145); TOTAL PROTEIN 5.3 g/dL (6.4-8.9)
[2023-11-02 19:17] LABS: LIPASE < 10 U/L (11-82)
[2023-11-02 19:19] LABS: PLT - PLATELET COUNT 17 10^3/uL (130-450); WHITE BLOOD COUNT 0.1 x10^3/uL (4.8-10.8)
[2023-11-02 19:20] LABS: SLIDE REVIEW? Indicated
[2023-11-02 19:50] LABS: PLATELET ESTIMATE, MANUAL DECREASED (<130,000) (NORMAL); PLATELET MORPHOLOGY NORMAL APPEARANCE (NORMAL)
[2023-11-02 19:51] LABS: DIFFERENTIAL COMMENT MANUAL=AUTO DIFF
[2023-11-02 19:52] LABS: BILIRUBIN,URINE NEGATIVE (NEGATIVE); GLUCOSE, URINE (UA) NEGATIVE (NEGATIVE); KETONES,URINE (UA) NEGATIVE (NEGATIVE); LEUKOCYTE ESTERASE, URINE SMALL (NEGATIVE); NITRITE,URINE NEGATIVE (NEGATIVE); OCCULT BLOOD,URINE LARGE (NEGATIVE); PROTEIN,URINE 100 mg/dL (NEGATIVE); UROBILINOGEN,URINE 1 (NORMAL) E.U./dL (NORMAL)
[2023-11-02 19:54] LABS: CLARITY,URINE HAZY (CLEAR)
[2023-11-02 20:05] LABS: BACTERIA,URINE Few /HPF (None Seen); SQUAMOUS EPITHELIAL CELL,UR NONE SEEN (<= Few); YEAST,URINE PRESENT
--- NOTE | 2023-11-02 20:30 | ED Physician Documentation ---
History of Present Illness - Stated complaint Stated Complaint: LOW BP/SYNCOPE - Chief complaint Chief Complaint: General - History obtained from History obtained from: Patient, Family - History of Present Illness Timing: Last night Pain level max: 0 Pain level now: 0 - Additonal information Additional information: Patient is a 68-year-old male who presents to the emergency department complaining of fevers since last night, Tmax 103. He is currently undergoing "aggressive chemotherapy" for follicular lymphoma. Denies any cough or congestion. Nothing makes it better or worse. He states that he was hospitalized last week at [facility] for low platelets and low hemoglobin and low white blood cell count. His oncologist is in [place]. He sees Dr. Karis Peralta for oncology. No abdominal pain. No vomiting. No diarrhea or constipation. No back pain. No dysuria. Nothing makes it better or worse. Patient states that he just feels tired and does not feel well today. Has a port in the left upper chest. The initial complaint listed syncope, but the patient did not have any syncope today. He states he just felt tired and slightly lightheaded when he stood up. Review of Systems Constitutional: reports: Fever, Chills Nose: denies: Rhinorrhea / runny nose, Congestion Throat: denies: Sore throat Respiratory: denies: Cough GI: denies: Abdominal Pain, Nausea, Vomiting, Diarrhea : denies: Dysuria, Frequency, Hesitancy Skin: denies: Rash Musculoskeletal: denies: Neck pain, Back pain Neurologic: denies: Headache PD PAST MEDICAL HISTORY - Past Medical History Past Medical History: Yes Cardiovascular: High cholesterol : Benign prostate hypertrophy Other Past Medical History: Follicular lymphoma - Past Surgical History Past Surgical History: Yes - Present Medications Home Medications: Ambulatory Orders Medication Instructions Recorded Confirmed Atorvastatin [Lipitor] 20 mg PO QPM 07/12/23 08/25/23 Brimonidine Tartrate 1 drops EACHEYE TID 07/12/23 08/25/23 Magnesium Oxide [Magnesium] 1 cap PO DAILY 07/12/23 08/25/23 Ondansetron [Ondansetron Odt] 8 mg PO Q6HR PRN 07/12/23 08/25/23 Tamsulosin [Flomax] 0.4 mg PO DAILY 07/12/23 08/25/23 Meloxicam [Mobic] 7.5 mg PO BID 10 Days #20 tablet 08/25/23 Prochlorperazine Maleate 10 mg PO DAILY 08/25/23 08/25/23 cephALEXin [Keflex] 500 mg PO TID #20 cap 08/25/23 oxyCODONE [Roxicodone] 1 - 2 tab PO PRN PRN 08/25/23 08/25/23 Ciprofloxacin HCl [Cipro] 500 mg PO BID #14 tablet 08/27/23 - Allergies Allergies/Adverse Reactions: Allergies Allergy/AdvReac Type Severity Reaction Status Date / Time methocarbamol AdvReac Nausea Verified 11/02/23 18:20 - Social History Does the pt smoke?: No Smoking Status: Never smoker Does the pt drink ETOH?: No Does the pt have substance abuse?: No - Immunizations Immunizations are current?: Yes - POLST Patient has POLST: No PD ED PE NORMAL - Vitals Vital signs reviewed: Yes - General General: Alert and oriented X 3, No acute distress - HEENT HEENT: Moist mucous membranes - Neck Neck: Supple, no meningeal sign - Cardiac Cardiac: RRR, Strong equal pulses - Respiratory Respiratory: No respiratory distress, Clear bilaterally - Abdomen Abdomen: Soft, Non tender, Non distended - Back Back: No CVA TTP, No spinal TTP - Derm Derm: Warm and dry - Extremities Extremities: Other (Mild erythema of the right thumb. No streaking. No significant swelling.) - Neuro Neuro: Alert and oriented X 3 Results - Vitals Vitals: Vital Signs - 24 hr 11/02/23 11/02/23 11/02/23 18:12 19:19 19:30 Temperature 37.8 C Heart Rate 117 H 103 H 103 H Respiratory 16 21 21 Rate Blood Pressure 102/49 L 119/61 121/67 O2 Saturation 99 97 100 11/02/23 11/02/23 11/02/23 20:00 20:30 21:00 Temperature Heart Rate 104 H 99 98 Respiratory 19 21 19 Rate Blood Pressure 121/67 134/56 H 141/61 H O2 Saturation 99 100 99 11/02/23 11/02/23 11/02/23 21:30 22:00 22:30 Temperature 38.5 C H Heart Rate 102 H 110 H 120 H Respiratory 19 20 19 Rate Blood Pressure 139/66 H 131/68 H 114/68 O2 Saturation 100 100 94 05/08/24 05/08/24 23:00 23:30 Temperature 102.5 C H Heart Rate 118 H 120 H Respiratory 20 19 Rate Blood Pressure 108/62 122/52 L O2 Saturation 96 96 Oxygen O2 Source Room air - Labs Labs: Laboratory Tests 11/02/23 11/02/23 11/02/23 18:50 18:50 19:30 WBC 0.1 L* RBC 3.70 L Hgb 8.8 L Hct 28.4 L MCV 76.8 L MCH 23.8 L MCHC 31.0 L RDW 16.2 H Plt Count 17 L* MPV TNP Neut # (Auto) 0.0 L* Lymph # (Auto) 0.1 L [place] # (Auto) 0.0 Eos # (Auto) 0.0 Baso # (Auto) 0.0 Absolute Nucleated RBC 0.00 Total Counted PLACEMENT INTERVIEWER Band Neuts % (Manual) Not Reportable Abnorm Lymph % (Manual) Not Reportable Nucleated RBC % 0.0 Neutrophils # (Manual) Not Reportable Lymphocytes # (Manual) Not Reportable Monocytes # (Manual) Not Reportable Eosinophils # (Manual) Not Reportable Basophils # (Manual) Not Reportable Differential Comment MANUAL=AUTO DIFF Manual Slide Review Indicated Platelet Estimate DECREASED (<130,000) Platelet Morphology NORMAL APPEARANCE RBC Morph Micro Appear 1+ HYPOCHROMASIA Sodium 130 L Potassium 4.4 Chloride 97 L Carbon Dioxide 25 Anion Gap 8.0 BUN 24 H Creatinine 1.3 Estimated GFR (MDRD) 55 L Glucose 159 H Lactic Acid Calcium 8.9 Total Bilirubin 0.9 AST 47 H ALT 87 H Alkaline Phosphatase 209 H Total Protein 5.3 L Albumin 2.7 L Globulin 2.6 Albumin/Globulin Ratio 1.0 Lipase < 10 L Urine Color DARK YELLOW Urine Clarity HAZY Urine pH 6.0 Ur Specific [place] 1.020 Urine Protein 100 H Urine Glucose (UA) NEGATIVE Urine Ketones NEGATIVE Urine Occult Blood LARGE H Urine Nitrite NEGATIVE Urine Bilirubin NEGATIVE Urine Urobilinogen 1 (NORMAL) Ur Leukocyte Esterase SMALL H Urine RBC 11-25 H Urine WBC 11-25 H Ur Squamous Epith Cells NONE SEEN Urine Bacteria Few Urine Yeast PRESENT Ur Microscopic Review INDICATED Urine Culture Comments INDICATED Nasal Adenovirus (PCR) Nasal B. parapertussis DNA (PCR) Nasal Coronavir 229E PCR Nasal Coronavir HKU1 PCR Nasal Coronavir NL63 PCR Nasal Coronavir OC43 PCR Nasal Enterovir/Rhinovir PCR Nasal Influenza B PCR Nasal Influenza A PCR Nasal Parainfluen 1 PCR Nasal Parainfluen 2 PCR Nasal Parainfluen 3 PCR Nasal Parainfluen 4 PCR Nasal RSV (PCR) Nasal B.pertussis DNA PCR Nasal C.pneumoniae (PCR) Srinivas Human Metapneumo PCR Nasal M.pneumoniae (PCR) Nasal SARS-CoV-2 (PCR) 11/02/23 11/02/23 20:16 20:36 WBC RBC Hgb Hct MCV MCH MCHC RDW Plt Count MPV Neut # (Auto) Lymph # (Auto) [place] # (Auto) Eos # (Auto) Baso # (Auto) Absolute Nucleated RBC Total Counted Band Neuts % (Manual) Abnorm Lymph % (Manual) Nucleated RBC % Neutrophils # (Manual) Lymphocytes # (Manual) Monocytes # (Manual) Eosinophils # (Manual) Basophils # (Manual) Differential Comment Manual Slide Review Platelet Estimate Platelet Morphology RBC Morph Micro Appear Sodium Potassium Chloride Carbon Dioxide Anion Gap BUN Creatinine Estimated GFR (MDRD) Glucose Lactic Acid 3.0 H* Calcium Total Bilirubin AST ALT Alkaline Phosphatase Total Protein Albumin Globulin Albumin/Globulin Ratio Lipase Urine Color Urine Clarity Urine pH Ur Specific [place] Urine Protein Urine Glucose (UA) Urine Ketones Urine Occult Blood Urine Nitrite Urine Bilirubin Urine Urobilinogen Ur Leukocyte Esterase Urine RBC Urine WBC Ur Squamous Epith Cells Urine Bacteria Urine Yeast Ur Microscopic Review Urine Culture Comments Nasal Adenovirus (PCR) NOT DETECTED Nasal B. parapertussis DNA (PCR) NOT DETECTED Nasal Coronavir 229E PCR NOT DETECTED Nasal Coronavir HKU1 PCR NOT DETECTED Nasal Coronavir NL63 PCR NOT DETECTED Nasal Coronavir OC43 PCR NOT DETECTED Nasal Enterovir/Rhinovir PCR NOT DETECTED Nasal Influenza B PCR NOT DETECTED Nasal Influenza A PCR NOT DETECTED Nasal Parainfluen 1 PCR NOT DETECTED Nasal Parainfluen 2 PCR NOT DETECTED Nasal Parainfluen 3 PCR NOT DETECTED Nasal Parainfluen 4 PCR NOT DETECTED Nasal RSV (PCR) NOT DETECTED Nasal B.pertussis DNA PCR NOT DETECTED Nasal C.pneumoniae (PCR) NOT DETECTED Srinivas Human Metapneumo PCR NOT DETECTED Nasal M.pneumoniae (PCR) NOT DETECTED Nasal SARS-CoV-2 (PCR) NOT DETECTED - Rads (name of study) cxr Relevant Findings:: Final report received, See rad report PD Medical Decision Making - ED course Complexity details: reviewed results, re-evaluated patient, considered differential, d/w patient, d/w acquisition consultant ED course: 68-year-old male with neutropenic fever. Undergoing chemotherapy for follicular lymphoma. His treatment is with [place] at [facility] in [place]. Urinalysis consistent with infection. Started on cefepime IV. He is pancytopenic. Does not need a red blood cell transfusion at this time. He had been transfused platelets last week. His platelets are at 17,000, no active bleeding. No falls. No GI bleeding. Attempted to contact his oncologist several times tonight. No callback received. Did discuss the case with [facility], they have no beds available. Discussed the case with the nighttime hospitalist at approx [phone], he recommends attempting to find another place to transfer the patient if possible. There are no beds at [facility] in [place], [facility] in [place], [facility] in [place]. When I spoke with the nighttime hospitalist, Dr. Milligan he stated he would call back in 30 minutes and admit the patient if he had not found a bed. And approximately 90 minutes have gone by. At time of shift change (2344) we are awaiting callback from the nighttime hospitalist, Dr. Milligan. Patient signed out to Dr. Garces for any further issues, the plan is for the nighttime hospitalist to admit the patient. This document was made in part using voice recognition software. While efforts are made to proofread this document, sound alike and grammatical errors may occur. Departure - Departure Disposition: 66 [facility] DC/Xfer Clinical Impression: Neutropenic fever, Pancytopenia UTI (urinary tract infection) Qualifiers: Urinary tract infection type: acute cystitis Hematuria presence: without hematuria Qualified Code(s): N30.00 - Acute cystitis without hematuria Lymphoma Qualifiers: Lymphoma type: unspecified type Lymphoma site: unspecified region Qualified Code(s): C85.90 - Non-Hodgkin lymphoma, unspecified, unspecified site Condition: Stable Forms: PCP List
[2023-11-02] MEDS: CEFEPIME 2 GM in SODIUM CHLORIDE 0.9% MINIBAG 100 ML IV STA (20:37)
[2023-11-02] MEDS: SODIUM CHLORIDE 0.9% 1,000 ML IV STA ×3 (20:38→21:20)
[2023-11-02 21:57] LABS: B. PARAPERTUSSIS- RESP PCR PAN NOT DETECTED; B. PERTUSSIS- RESP PCR PANEL NOT DETECTED; C. PNEUMONIAE- RESP PCR PANEL NOT DETECTED; CORONAVIRUS 229E-RESP PCR NOT DETECTED; CORONAVIRUS HKU1-RESP PCR NOT DETECTED; CORONAVIRUS NL63-RESP PCR NOT DETECTED; CORONAVIRUS OC43-RESP PCR NOT DETECTED; HUMAN METAPNEUMOVIRUS NOT DETECTED; INFLUENZA A- RESP PCR PANEL NOT DETECTED; INFLUENZA B - RESP PCR PANEL NOT DETECTED; M. PNEUMONIAE- RESP PCR PANEL NOT DETECTED; PARAINFLUENZA VIRUS 1 NOT DETECTED; PARAINFLUENZA VIRUS 2 NOT DETECTED; PARAINFLUENZA VIRUS 3 NOT DETECTED; PARAINFLUENZA VIRUS 4 NOT DETECTED; RHINOVIRUS/ENTEROVIRUS NOT DETECTED; RSV- RESP PCR PANEL NOT DETECTED; SARS-CoV-2 -RESP PCR PANEL NOT DETECTED
[2023-11-02] MEDS: ACETAMINOPHEN 325 MG TABLET PO STA (22:34)
--- NOTE | 2023-11-02 22:35 | XRAY Report ---
PROCEDURE: Chest 1V INDICATIONS: fever TECHNIQUE: One view of the chest was acquired. COMPARISON: 07/15/2023 FINDINGS: Surgical changes and devices: Right portacatheter terminates in the SVC. Lungs and pleura: Low lung volumes. Left base mild opacity and effusion. Mediastinum: Normal heart size Bones and chest wall: Degenerative changes IMPRESSION: There is a left base opacity and small effusion, new from prior. Consider future imaging surveillance to assess for resolution. Reviewed by: Alex Herbert MD on 11/02/2023 10:33 PM PDT Approved by: Alex Herbert MD on 11/02/2023 10:33 PM PDT Station ID: [id number]
[2023-11-03] MEDS ORDERED: ONDANSETRON 4 MG/2 ML VIAL IVP PRN (01:53)
[2023-11-03] MEDS ORDERED: SODIUM CHLORIDE FLUSH 0.9% 10 ML SYRINGE IVP PRN (01:53)
[2023-11-03] MEDS ORDERED: PROCHLORPERAZINE 10 MG/2 ML VIAL IVP PRN (01:53)
[2023-11-03] MEDS ORDERED: IPRATROPIUM/ALBUTEROL 3 ML NEB INH PRN (02:11)
--- NOTE | 2023-11-03 02:18 | HISTORY & PHYSICAL EXAMINATION ---
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 Patient reports sxs started around 4 days ago. He recently had chemo. He subsequently noted malaise and weakness. He mentions one episode of getting out of his car and passing out however that was one his way to chemotherapy. Patient had subjective fever and came into the ED for evaluation. No cough. No runny nose. No sore throat. No n/v/d. No dysuria. No rash. No travel. No sick contact. Patient had been on oral abx outpatient. Here in the ED, patient is noted for sever neutropenia. plt 17K. no acute b leed. he has a chest port. History - Past Medical History Cardiovascular: reports: High cholesterol : reports: Benign prostate hypertrophy MRSA Hx?: No Other Past Medical History: Follicular lymphoma - POLST Patient has POLST: No Meds/Allgy - Home Medications Home Medications: Ambulatory Orders Medication Instructions Recorded Confirmed Ondansetron [Ondansetron Odt] 8 mg PO BID PRN 07/12/23 11/03/23 Tamsulosin [Flomax] 0.4 mg PO HS 07/12/23 11/03/23 oxyCODONE [Roxicodone] 1 - 1.5 tab PO Q4HR PRN 08/25/23 11/03/23 Brimonidine Tartrate 1 drops EACHEYE TID 11/03/23 11/03/23 Gabapentin [Neurontin] 200 mg PO HS 11/03/23 11/03/23 OLANZapine [Zyprexa] 2.5 mg PO HS 11/03/23 11/03/23 allopurinoL [Allopurinol] 300 mg PO BID 11/03/23 11/03/23 amLODIPine [Norvasc] 5 mg PO DAILY 11/03/23 11/03/23 cephALEXin [Keflex] 1,000 mg PO Q6H 11/03/23 11/03/23 - Allergies Allergies/Adverse Reactions: Allergies Allergy/AdvReac Type Severity Reaction Status Date / Time methocarbamol AdvReac Nausea Verified 11/02/23 18:20 Review of Systems - Constitutional Constitutional: reports: Fatigue, Fever, Malaise, Weakness - Other Findings Other Findings: negative unless mentioned differently Exam - Vital Signs Reviewed Vital Signs: Yes Vital Signs: Vital Signs x48h Temp Pulse Resp BP Pulse Ox 11/03/23 01:00 101 H 22 101/53 L 96 11/03/23 00:30 104 H 19 104/54 L 96 11/03/23 00:00 107 H 24 103/50 L 95 11/02/23 23:30 102.5 C H 120 H 19 122/52 L 96 11/02/23 23:04 102.5 C H 11/02/23 23:00 118 H 20 108/62 96 11/02/23 22:30 120 H 19 114/68 94 11/02/23 22:00 38.5 C H 110 H 20 131/68 H 100 11/02/23 21:30 102 H 19 139/66 H 100 11/02/23 21:00 98 19 141/61 H 99 11/02/23 20:30 99 21 134/56 H 100 11/02/23 20:00 104 H 19 121/67 99 11/02/23 19:30 103 H 21 121/67 100 11/02/23 19:19 103 H 21 119/61 97 - Physical Exam General Appearance: positive: No acute distress, Alert Eyes Bilateral: positive: Normal inspection ENT: positive: ENT inspection nml Neck: positive: Nml inspection Cardiovascular: positive: Tachycardia Abdomen: positive: Non-tender, No distention. negative: Guarding, Rebound Skin: positive: Color nml Extremities: positive: Nml appearance Conclusion/Plan - Problem List (1) Neutropenic fever Conclusion/Plan: severely neutropenic 2/2 chemo for lymphoma. no overt signs of infection. has a chest port. empiric cefepime and vancomycin. followup cultures. consider neupogen to assist with neutrophil recovery. neutropenic precautions. (2) Pancytopenia Conclusion/Plan: likely combination of chemo and lymphoma. no acute bleed. noted plts 17 in setting of neutropenic fever - will transfuse 1 unit for plts<20k. monitor hgb/hct with cbc. consider reaching out to hematology for recommendation regarding neupogen. monitor with repeat CBC patient has agreed to blood products and understand risk and benefits. (3) Lymphoma Conclusion/Plan: managing by hematology on chemo. p/w neutropenic fever as mentioned above with associated treatment. noted pancytopenic as noted above x 1 unit plts. defer additional management to outpatient hematology Qualifiers: Lymphoma type: unspecified type Lymphoma site: unspecified region Qualified Code(s): C85.90 - Non-Hodgkin lymphoma, unspecified, unspecified site (4) Hypertension Conclusion/Plan: managed. continue amlodipine. monitor blood pressure with repeat vital checks. (5) BPH (benign prostatic hyperplasia) Conclusion/Plan: stable. no report of ongoing urinary retention. restart home tamsulosin. - Lab Results Fish Bones: 11/02/23 18:50 11/02/23 18:50 - Diagnostic Imaging Results Diagnostic Imaging Results: positive: Final report reviewed Core Measures - Anticipated LOS I expect patient to be DC'd or transferred within 96 hours.: No - Issues Hospital Issues and Management Plan: The patient consented to receive this telemedicine service, which I performed via live two-way audiovisual equipment. The patient is at ([facility]) and I am physically in [facility]. A nurse assisted me in the visit. - DVT/VTE - Prophylaxis VTE/DVT Device ordered at admit?: Yes Telemedicine Consult Details - Provider Location & Consult Time Telemedicine consultation conducted via videoconferencing?: Yes List names and roles of persons who participated in consult:: ED staff, RN, manager order Telemedicine provider location:: [facility] Time Telemedicine consult began:: 01:43 Time Telemedicine consult completed:: 02:33
[2023-11-03] MEDS: VANCOMYCIN INJ 1.5 GM in SODIUM CHLORIDE 0.9% 500 ML IV ONE (03:18)
[2023-11-03] MEDS: BRIMONIDINE 0.2% EACHEYE SCH (05:38)
[2023-11-03 05:54] LABS: MEAN CORPUSCULAR HEMOGLOBIN 24.4 pg (27.0-31.0); MEAN CORPUSCULAR HGB CONC 32.1 g/dL (32.0-36.0); RED BLOOD COUNT 2.54 10^6/uL (4.70-6.10); RED CELL DISTRIBUTION WIDTH 16.4 % (12.0-15.0)
[2023-11-03 06:13] LABS: CALCIUM 7.6 mg/dL (8.5-10.3); CREATININE 1.2 mg/dL (0.6-1.3); MAGNESIUM 1.5 mg/dL (1.7-2.3); PHOSPHORUS 2.9 mg/dL (2.5-5.0); POTASSIUM 3.7 mmol/L (3.5-4.5)
[2023-11-03 06:15] LABS: HCT - HEMATOCRIT 19.3 % (42.0-52.0); HGB - HEMOGLOBIN 6.2 g/dL (14.0-18.0); WHITE BLOOD COUNT < 0.1 x10^3/uL (4.8-10.8)
[2023-11-03 06:16] LABS: PLT - PLATELET COUNT 9 10^3/uL (130-450)
[2023-11-03 06:17] LABS: ABNORMAL LYMPHS % (MANUAL) 0 %; BAND NEUTROPHILS % (MANUAL) 0 %; LYMPHOCYTES % (MANUAL) 0 %
[2023-11-03 06:47] LABS: BASOPHILS % (MANUAL) 0 %
[2023-11-03 06:48] LABS: PLATELET ESTIMATE, MANUAL DECREASED (<130,000) (NORMAL)
[2023-11-03] MEDS: allopurinoL 100 MG TABLET PO SCH (08:22)
[2023-11-03] MEDS: amLODIPine 5 MG TABLET PO SCH (08:22)
[2023-11-03] MEDS: oxyCODONE 5 MG TABLET PO PRN (08:27)
[2023-11-03] MEDS ORDERED: NON FORMULARY MED (Allopurinol [Allopurinol] 300 MG Tablet) PO SCH (09:00)
[2023-11-03] MEDS: SODIUM CHLORIDE FLUSH 0.9% 10 ML SYRINGE IVP SCH (09:18)
--- NOTE | 2023-11-03 10:02 | PHARMACY PROGRESS NOTE ---
- Best Possible Medication History Admit Date and Time: 11/03/23 0153 Processed by: Nursing As the person ultimately responsible for medication therapy, providers are able to order a medication from an existing home medication list in [facility] via the "Reconcile Routine" prior to Confirmation of that medication by patient support specialist. Such practice is discouraged except when the physician, in their clinical judgment, deems that a medical need exists for a medication without regard to previous use.
--- NOTE | 2023-11-03 11:12 | PHARMACY PROGRESS NOTE ---
- Therapy Status Vancomycin regimen day #: 1 Therapy status: Awaiting steady state Basis for treatment: Empirical Treatment indication: FEBRILE NEUTROPENIA Trough goal: 400-600 Concurrent antibiotics: CEFEPIME - TERRENCE Risk Risk level for Acute Kidney Injury: Low Acute Kidney Injury risk factors: Goal trough >15 - Monitoring and Recommendation Clinical response to treatment: I&O Previous 24 hours 11/01/23 11/02/23 11/03/23 23:59 23:59 23:59 Intake Total 100 1999 Balance 100 1999 Lab Results 11/02/23 18:50 BUN 24 H Creatinine 1.3 Estimated GFR (MDRD) 55 L Monitoring plan: Daily serum creatinine Areas for additional monitoring: IV to PO when appropriate Pharmacy recommendation: Continue current regime
[2023-11-03] MEDS: CEFEPIME 2 GM in SODIUM CHLORIDE 0.9% MINIBAG 100 ML IV SCH (12:13)
[2023-11-03] MEDS: VANCOMYCIN INJ 1 GM in SODIUM CHLORIDE 0.9% 250 ML IV SCH (14:11)
[2023-11-03 14:52] LABS: HCT - HEMATOCRIT 24.5 % (42.0-52.0); HGB - HEMOGLOBIN 7.7 g/dL (14.0-18.0); MEAN CORPUSCULAR HEMOGLOBIN 24.3 pg (27.0-31.0); MEAN CORPUSCULAR HGB CONC 31.4 g/dL (32.0-36.0); MEAN CORPUSCULAR VOLUME 77.3 fL (80.0-94.0); MEAN PLATELET VOLUME 9.4 fL (7.4-11.4); PLT - PLATELET COUNT 36 10^3/uL (130-450); RED BLOOD COUNT 3.17 10^6/uL (4.70-6.10); RED CELL DISTRIBUTION WIDTH 16.1 % (12.0-15.0)
[2023-11-03 15:29] LABS: WHITE BLOOD COUNT < 0.1 x10^3/uL (4.8-10.8)
[2023-11-03 15:34] LABS: PLATELET ESTIMATE, MANUAL DECREASED (<130,000) (NORMAL); PLATELET MORPHOLOGY NORMAL APPEARANCE (NORMAL); SLIDE REVIEW? Indicated
[2023-11-03] MEDS: DOCUSATE SODIUM 250 MG CAPSULE PO SCH (17:06)
[2023-11-03] MEDS: SENNA 8.6 MG TABLET PO SCH (17:06)
[2023-11-03] MEDS: polyethylene glycoL 3350 17 GM PACKET PO SCH (17:06)
[2023-11-03] MEDS: GABAPENTIN 100 MG CAPSULE PO SCH (20:54)
[2023-11-03] MEDS: ACETAMINOPHEN 325 MG TABLET PO PRN (20:54)
[2023-11-03] MEDS: TAMSULOSIN 0.4 MG CAPSULE PO SCH (20:55)
[2023-11-03] MEDS: OLANZapine ODT 5 MG TABLET TL SCH (20:55)
[2023-11-03] MEDS: PHENOL THROAT SPRAY 177 ML MM PRN (20:57)
--- NOTE | 2023-11-03 22:25 | PROVIDER PROGRESS NOTE ---
Assessment/Plan - Current Meds Current Meds: Current Medications Generic Name Dose Route Start Last Admin Trade Name Freq PRN Reason Stop Dose Admin Acetaminophen 650 mg 11/03/23 01:53 11/03/23 20:54 Acetaminophen 325 Mg Tablet PO 650 mg Q4HR PRN Administration Pain 1 to 4, or Fever Allopurinol 300 mg 11/03/23 09:00 11/03/23 20:54 Allopurinol 100 Mg Tablet PO 300 mg BID [facility] Administration Amlodipine Besylate 5 mg 11/03/23 09:00 11/03/23 08:22 Amlodipine 5 Mg Tablet PO 5 mg DAILY [facility] Administration Brimonidine Tartrate 1 drops 11/03/23 06:00 11/03/23 20:56 Brimonidine 0.2% Ophth Drops 10 Ml EACHEYE Not Given TID [facility] Docusate Sodium 250 - 500 mg 11/03/23 16:00 11/03/23 17:06 Docusate Sodium 250 Mg Capsule PO 250 mg DAILY [facility] Administration Gabapentin 200 mg 11/03/23 21:00 11/03/23 20:54 Gabapentin 100 Mg Capsule PO 200 mg HS [facility] Administration Vancomycin HCl 1 gm/ Sodium 250 mls @ 166.667 mls/hr 11/03/23 14:00 11/03/23 15:56 Chloride IV Infused Q12H [facility] Infusion Cefepime HCl 2 gm/ Sodium 100 mls @ 200 mls/hr 11/03/23 12:00 11/03/23 21:00 Chloride IV Infused Q8H [facility] Infusion Olanzapine 2.5 mg 11/03/23 21:00 11/03/23 20:55 Olanzapine Odt 5 Mg Tablet TL 2.5 mg HS [facility] Administration Oxycodone HCl 5 mg 11/03/23 01:53 11/03/23 20:54 Oxycodone 5 Mg Tablet PO 5 mg Q4HR PRN Administration Pain 8 to 10 Phenol/Menthol 2 sprays 11/03/23 10:53 11/03/23 20:57 Phenol Throat [place] 177 Ml MM 2 sprays Q2HR PRN Administration Throat Pain Polyethylene Glycol 17 gm 11/03/23 16:00 11/03/23 17:06 Polyethylene Glycol 3350 17 Gm Packet PO 17 gm DAILY [facility] Administration Senna 8.6 - 17.2 mg 11/03/23 16:00 11/03/23 17:06 Senna 8.6 Mg Tablet PO 8.6 mg DAILY [facility] Administration Sodium Chloride 10 ml 11/03/23 09:00 11/03/23 17:06 Sodium Chloride Flush 0.9% 10 Ml Syringe IVP 10 ml 0100,0900,1700 [facility] Administration Tamsulosin HCl 0.4 mg 11/03/23 21:00 11/03/23 20:55 Tamsulosin 0.4 Mg Capsule PO 0.4 mg HS [facility] Administration - Lab Result Fish Bone Diagrams: 11/03/23 14:20 11/03/23 05:32 - Additional Planning My Orders: My Active Orders 11/03/23 12:00 Cefepime 2 gm Sodium Chloride 0.9% Minibag [Normal Saline 0.9% Minibag] 100 ml IV Q8H Objective Vital Signs: Vital Signs - 24 hr 11/02/23 11/02/23 11/02/23 22:30 23:00 23:04 Temperature 102.5 C H Heart Rate 120 H 118 H Heart Rate [ Brachial] Respiratory 19 20 Rate Blood Pressure 114/68 108/62 Blood Pressure [Right Brachial artery] O2 Saturation 94 96 11/02/23 11/03/23 11/03/23 23:30 00:00 00:30 Temperature 102.5 C H Heart Rate 120 H 107 H 104 H Heart Rate [ Brachial] Respiratory 19 24 19 Rate Blood Pressure 122/52 L 103/50 L 104/54 L Blood Pressure [Right Brachial artery] O2 Saturation 96 95 96 11/03/23 11/03/23 11/03/23 01:00 01:30 02:00 Temperature Heart Rate 101 H 98 96 Heart Rate [ Brachial] Respiratory 22 21 20 Rate Blood Pressure 101/53 L 108/59 L 107/62 Blood Pressure [Right Brachial artery] O2 Saturation 96 97 97 11/03/23 11/03/23 11/03/23 02:30 03:19 08:25 Temperature 37.4 C 37.1 C 36.2 C L Heart Rate 95 Heart Rate [ 94 93 Brachial] Respiratory 21 18 18 Rate Blood Pressure 104/81 H Blood Pressure 159/62 H 144/76 H [Right Brachial artery] O2 Saturation 98 97 97 11/03/23 11/03/23 11/03/23 09:01 09:19 09:29 Temperature 36.3 C L 36.6 C 36.5 C Heart Rate Heart Rate [ 95 97 95 Brachial] Respiratory 16 16 Rate Blood Pressure Blood Pressure 116/54 L 116/56 L 112/54 L [Right Brachial artery] O2 Saturation 99 99 98 11/03/23 11/03/23 11/03/23 10:44 10:45 11:02 Temperature 36.6 C 36.6 C 36.5 C Heart Rate Heart Rate [ 79 79 77 Brachial] Respiratory 16 14 Rate Blood Pressure Blood Pressure 114/53 L 114/53 L 113/61 [Right Brachial artery] O2 Saturation 97 97 97 11/03/23 11/03/23 11/03/23 13:20 13:36 15:43 Temperature 36.7 C 36.7 C 37.0 C Heart Rate Heart Rate [ 89 100 Brachial] Respiratory 16 20 Rate Blood Pressure Blood Pressure 106/70 146/69 H [Right Brachial artery] O2 Saturation 99 97 11/03/23 11/03/23 20:19 21:00 Temperature 38.1 C H 37.7 C Heart Rate Heart Rate [ 95 Brachial] Respiratory 24 Rate Blood Pressure Blood Pressure 121/63 [Right Brachial artery] O2 Saturation 97 Oxygen O2 Source Room air I&O (Last 24 Hrs): Intake and Output Totals x24h 11/01/23 11/02/23 11/03/23 23:59 23:59 23:59 Intake Total 100 5364.223 Output Total 2525 Balance 100 2839.223 - Results Results: Laboratory Results WBC < 0.1 x10^3/uL (4.8-10.8) L* 11/03/23 14:20 RBC 3.17 10^6/uL (4.70-6.10) L 11/03/23 14:20 Hgb 7.7 g/dL (14.0-18.0) L 11/03/23 14:20 Hct 24.5 % (42.0-52.0) L 11/03/23 14:20 MCV 77.3 fL (80.0-94.0) L 11/03/23 14:20 MCH 24.3 pg (27.0-31.0) L 11/03/23 14:20 MCHC 31.4 g/dL (32.0-36.0) L 11/03/23 14:20 RDW 16.1 % (12.0-15.0) H 11/03/23 14:20 Plt Count 36 10^3/uL (130-450) L 11/03/23 14:20 MPV 9.4 fL (7.4-11.4) 11/03/23 14:20 Neut # (Auto) 0.0 10^3/uL (1.5-6.6) L* 11/03/23 14:20 Lymph # (Auto) 0.0 10^3/uL (1.5-3.5) L 11/03/23 14:20 [place] # (Auto) 0.0 10^3/uL (0.0-1.0) 11/03/23 14:20 Eos # (Auto) 0.0 10^3/uL (0.0-0.7) 11/03/23 14:20 Baso # (Auto) 0.0 10^3/uL (0.0-0.1) 11/03/23 14:20 Absolute Nucleated RBC 0.00 x10^3/uL 11/03/23 14:20 Total Counted [employer] 11/02/23 18:50 Band Neuts % (Manual) 0 % (0-10) 11/03/23 05:32 Abnorm Lymph % (Manual) 0 % 11/03/23 05:32 Nucleated RBC % 0.0 /100WBC 11/03/23 14:20 Neutrophils # (Manual) 0.0 10^3/uL (1.5-6.6) L* 11/03/23 05:32 Lymphocytes # (Manual) 0.0 10^3/uL (1.5-3.5) L 11/03/23 05:32 Monocytes # (Manual) 0.0 10^3/uL (0.0-1.0) 11/03/23 05:32 Eosinophils # (Manual) 0.0 10^3/uL (0-0.7) 11/03/23 05:32 Basophils # (Manual) 0.0 10^3/uL (0-0.1) 11/03/23 05:32 Differential Comment MANUAL=AUTO DIFF 11/02/23 18:50 Manual Slide Review Indicated 11/03/23 14:20 Platelet Estimate DECREASED (<130,000) (NORMAL) 11/03/23 14:20 Platelet Morphology NORMAL APPEARANCE (NORMAL) 11/03/23 14:20 RBC Morph Micro Appear 1+ ANISOCYTOSIS (NORMAL) 1+ MICROCYTOSIS (NORMAL) 1+ HYPOCHROMASIA (NORMAL) 11/03/23 14:20 RBC Morph Micro Appear 1+ ANISOCYTOSIS (NORMAL) 1+ MICROCYTOSIS (NORMAL) 1+ HYPOCHROMASIA (NORMAL) 11/03/23 14:20 RBC Morph Micro Appear 1+ ANISOCYTOSIS (NORMAL) 1+ MICROCYTOSIS (NORMAL) 1+ HYPOCHROMASIA (NORMAL) 11/03/23 14:20 Sodium 133 mmol/L (135-145) L 11/03/23 05:32 Potassium 3.7 mmol/L (3.5-4.5) 11/03/23 05:32 Chloride 103 mmol/L (101-111) 11/03/23 05:32 Carbon Dioxide 25 mmol/L (21-32) 11/03/23 05:32 Anion Gap 5.0 (6-13) L 11/03/23 05:32 BUN 21 mg/dL (6-20) H 11/03/23 05:32 Creatinine 1.2 mg/dL (0.6-1.3) 11/03/23 05:32 Estimated GFR (MDRD) 60 (>89) L 11/03/23 05:32 Glucose 109 mg/dL (74-104) H 11/03/23 05:32 Lactic Acid 3.0 mmol/L (0.5-2.2) H* 11/02/23 20:36 Calcium 7.6 mg/dL (8.5-10.3) L 11/03/23 05:32 Phosphorus 2.9 mg/dL (2.5-5.0) 11/03/23 05:32 Magnesium 1.5 mg/dL (1.7-2.3) L 11/03/23 05:32 Total Bilirubin 0.9 mg/dL (0.2-1.0) 11/02/23 18:50 AST 47 IU/L (10-42) H 11/02/23 18:50 ALT 87 IU/L (10-60) H 11/02/23 18:50 Alkaline Phosphatase 209 IU/L (42-121) H 11/02/23 18:50 Total Protein 5.3 g/dL (6.4-8.9) L 11/02/23 18:50 Albumin 2.7 g/dL (3.2-5.5) L 11/02/23 18:50 Globulin 2.6 g/dL (2.1-4.2) 11/02/23 18:50 Albumin/Globulin Ratio 1.0 (1.0-2.2) 11/02/23 18:50 Lipase < 10 U/L (11-82) L 11/02/23 18:50 Urine Color DARK YELLOW 11/02/23 19:30 Urine Clarity HAZY (CLEAR) 11/02/23 19:30 Urine pH 6.0 PH (5.0-7.5) 11/02/23 19:30 Ur Specific [place] 1.020 (1.002-1.030) 11/02/23 19:30 Urine Protein 100 mg/dL (NEGATIVE) H 11/02/23 19:30 Urine Glucose (UA) NEGATIVE mg/dL (NEGATIVE) 11/02/23 19:30 Urine Ketones NEGATIVE mg/dL (NEGATIVE) 11/02/23 19:30 Urine Occult Blood LARGE (NEGATIVE) H 11/02/23 19:30 Urine Nitrite NEGATIVE (NEGATIVE) 11/02/23 19:30 Urine Bilirubin NEGATIVE (NEGATIVE) 11/02/23 19:30 Urine Urobilinogen 1 (NORMAL) E.U./dL (NORMAL) 11/02/23 19:30 Ur Leukocyte Esterase SMALL (NEGATIVE) H 11/02/23 19:30 Urine RBC 11-25 /HPF (0-5) H 11/02/23 19:30 Urine WBC 11-25 /HPF (0-3) H 11/02/23 19:30 Ur Squamous Epith Cells NONE SEEN (<= Few) 11/02/23 19:30 Urine Bacteria Few /HPF (None Seen) 11/02/23 19:30 Urine Yeast PRESENT 11/02/23 19:30 Ur Microscopic Review INDICATED 11/02/23 19:30 Urine Culture Comments INDICATED 11/02/23 19:30 Nasal Adenovirus (PCR) NOT DETECTED 11/02/23 20:16 Nasal B. parapertussis DNA (PCR) NOT DETECTED 11/02/23 20:16 Nasal Coronavir 229E PCR NOT DETECTED 11/02/23 20:16 Nasal Coronavir HKU1 PCR NOT DETECTED 11/02/23 20:16 Nasal Coronavir NL63 PCR NOT DETECTED 11/02/23 20:16 Nasal Coronavir OC43 PCR NOT DETECTED 11/02/23 20:16 Nasal Enterovir/Rhinovir PCR NOT DETECTED 11/02/23 20:16 Nasal Influenza B PCR NOT DETECTED 11/02/23 20:16 Nasal Influenza A PCR NOT DETECTED 11/02/23 20:16 Nasal Parainfluen 1 PCR NOT DETECTED 11/02/23 20:16 Nasal Parainfluen 2 PCR NOT DETECTED 11/02/23 20:16 Nasal Parainfluen 3 PCR NOT DETECTED 11/02/23 20:16 Nasal Parainfluen 4 PCR NOT DETECTED 11/02/23 20:16 Nasal RSV (PCR) NOT DETECTED 11/02/23 20:16 Nasal B.pertussis DNA PCR NOT DETECTED 11/02/23 20:16 Nasal C.pneumoniae (PCR) NOT DETECTED 11/02/23 20:16 Srinivas Human Metapneumo PCR NOT DETECTED 11/02/23 20:16 Nasal M.pneumoniae (PCR) NOT DETECTED 11/02/23 20:16 Nasal SARS-CoV-2 (PCR) NOT DETECTED 11/02/23 20:16 Blood Type O POSITIVE 11/03/23 02:30 Blood Type Recheck O POSITIVE 11/02/23 19:30 Antibody Screen NEGATIVE 11/03/23 02:30 Crossmatch IS Only See Detail 11/03/23 02:30
[2023-11-04] MEDS ORDERED: VANCOMYCIN INJ 1.5 GM in SODIUM CHLORIDE 0.9% 500 ML IV SCH (03:00)
[2023-11-04 07:17] LABS: CALCIUM 8.3 mg/dL (8.5-10.3); CREATININE 1.1 mg/dL (0.6-1.3); MAGNESIUM 1.6 mg/dL (1.7-2.3); PHOSPHORUS 2.6 mg/dL (2.5-5.0); POTASSIUM 3.4 mmol/L (3.5-4.5)
[2023-11-04 07:32] LABS: HCT - HEMATOCRIT 23.7 % (42.0-52.0); HGB - HEMOGLOBIN 7.6 g/dL (14.0-18.0); MEAN CORPUSCULAR HEMOGLOBIN 24.5 pg (27.0-31.0); MEAN CORPUSCULAR HGB CONC 32.1 g/dL (32.0-36.0); MEAN CORPUSCULAR VOLUME 76.5 fL (80.0-94.0); MEAN PLATELET VOLUME 10.7 fL (7.4-11.4); RED CELL DISTRIBUTION WIDTH 16.4 % (12.0-15.0)
[2023-11-04 08:04] LABS: PLT - PLATELET COUNT 23 10^3/uL (130-450); WHITE BLOOD COUNT < 0.1 x10^3/uL (4.8-10.8)
[2023-11-04 08:08] LABS: ABNORMAL LYMPHS % (MANUAL) 0 %; BAND NEUTROPHILS % (MANUAL) 0 %
[2023-11-04 08:09] LABS: DIFFERENTIAL COMMENT MANUAL DIFFERENTIAL; LYMPHOCYTES % (MANUAL) 50 %
[2023-11-04] MEDS: BENZOCAINE/MENTHOL LOZENGE MM PRN (08:57)
[2023-11-04] MEDS: MAGIC MOUTHWASH 120 ML BOTTLE PO PRN (11:26)
[2023-11-04] MEDS: POTASSIUM CHLORIDE 20 MEQ/15 ML UDC PO SCH (22:48)
--- NOTE | 2023-11-04 23:31 | PROVIDER PROGRESS NOTE ---
Assessment/Plan - Problem List (1) Neutropenic fever Assessment/Plan: Continue neutropenic precautions. Continue cefepime and vancomycin. Blood cultures are pending. The possibility of giving him colony-stimulating factors and given his type of cancer it was not recommended and should be avoided. (2) Pancytopenia Conclusion/Plan: Pancytopenia most likely related to his recent chemotherapy. Continue to monitor on a daily basis. (3) Lymphoma Conclusion/Plan: Patient has a follicular lymphoma. His last dose of chemotherapy is R-CHOP (rituximab, cyclophosphamide, doxorubicin and prednisone Qualifiers: Lymphoma type: unspecified type Lymphoma site: unspecified region Qualified Code(s): C85.90 - Non-Hodgkin lymphoma, unspecified, unspecified site (4) Hypertension Conclusion/Plan: Continue amlodipine. (5) BPH (benign prostatic hyperplasia) Conclusion/Plan: Continue tamsulosin - Current Meds Current Meds: Current Medications Generic Name Dose Route Start Last Admin Trade Name Freq PRN Reason Stop Dose Admin Acetaminophen 650 mg 11/03/23 01:53 11/04/23 11:25 Acetaminophen 325 Mg Tablet PO 650 mg Q4HR PRN Administration Pain 1 to 4, or Fever Allopurinol 300 mg 11/03/23 09:00 11/04/23 20:49 Allopurinol 100 Mg Tablet PO 300 mg BID [facility] Administration Amlodipine Besylate 5 mg 11/03/23 09:00 11/04/23 08:45 Amlodipine 5 Mg Tablet PO 5 mg DAILY [facility] Administration Brimonidine Tartrate 1 drops 11/03/23 06:00 11/04/23 21:22 Brimonidine 0.2% Ophth Drops 10 Ml EACHEYE 1 drops TID [facility] Administration Docusate Sodium 250 - 500 mg 11/03/23 16:00 11/04/23 08:45 Docusate Sodium 250 Mg Capsule PO 500 mg DAILY [facility] Administration Gabapentin 200 mg 11/03/23 21:00 11/04/23 20:49 Gabapentin 100 Mg Capsule PO 200 mg HS [facility] Administration Vancomycin HCl 1 gm/ Sodium 250 mls @ 166.667 mls/hr 11/03/23 14:00 11/04/23 14:11 Chloride IV 167 mls/hr Q12H [facility] Administration Cefepime HCl 2 gm/ Sodium 100 mls @ 200 mls/hr 11/03/23 12:00 11/04/23 21:22 Chloride IV Infused Q8H [facility] Infusion Multi-Ingredient Mouthwash/Gargle 30 ml 11/04/23 09:50 11/04/23 16:56 Magic Mouthwash 120 Ml Bottle PO 30 ml Q4H PRN Administration Mouth Sore Pain Olanzapine 2.5 mg 11/03/23 21:00 11/04/23 20:49 Olanzapine Odt 5 Mg Tablet TL 2.5 mg HS [facility] Administration Oxycodone HCl 5 mg 11/03/23 01:53 11/04/23 08:57 Oxycodone 5 Mg Tablet PO 5 mg Q4HR PRN Administration Pain 8 to 10 Phenol/Menthol 2 sprays 11/03/23 10:53 11/03/23 20:57 Phenol Throat [place] 177 Ml MM 2 sprays Q2HR PRN Administration Throat Pain Polyethylene Glycol 17 gm 11/03/23 16:00 11/04/23 08:46 Polyethylene Glycol 3350 17 Gm Packet PO Not Given DAILY [facility] Potassium Chloride 40 meq 11/04/23 23:00 11/04/23 22:48 Potassium Chloride 20 Meq/15 Ml Udc PO 11/05/23 22:59 40 meq ONCE [facility] Administration Senna 8.6 - 17.2 mg 11/03/23 16:00 11/04/23 08:46 Senna 8.6 Mg Tablet PO 17.2 mg DAILY [facility] Administration Sodium Chloride 10 ml 11/03/23 09:00 11/04/23 16:45 Sodium Chloride Flush 0.9% 10 Ml Syringe IVP 10 ml 0100,0900,1700 [facility] Administration Tamsulosin HCl 0.4 mg 11/03/23 21:00 11/04/23 20:49 Tamsulosin 0.4 Mg Capsule PO 0.4 mg HS [facility] Administration Throat Lozenges 1 lozenge 11/03/23 10:53 11/04/23 08:57 Benzocaine/Menthol Lozenge MM 1 lozenge Q2HR PRN Administration Throat pain - Lab Result Fish Bone Diagrams: 11/06/23 05:40 11/06/23 05:40 - Additional Planning My Orders: My Active Orders 11/04/23 09:50 Magic Mouthwash 30 ml PO Q4H PRN 11/04/23 23:00 Potassium Chloride Oral Soln [Potassium Chloride] 40 meq PO ONCE 11/05/23 09:00 Magnesium Oxide [Mag Ox] 400 mg PO BID Subjective - Subjective Patient Reports: Other (Alert. Denies chest pain, shortness of breath and abdominal pain. He has no other complaints at this time.) Objective Vital Signs: Vital Signs - 24 hr 11/04/23 11/04/23 11/04/23 00:48 05:00 08:25 Temperature 36.7 C 36.7 C 36.8 C Heart Rate [ 82 88 97 Brachial] Respiratory 16 20 18 Rate Blood Pressure 125/59 L 120/66 150/71 H [Right Brachial artery] O2 Saturation 98 98 99 11/04/23 11/04/23 13:58 16:01 Temperature 36.6 C 36.7 C Heart Rate [ 86 86 Brachial] Respiratory 12 18 Rate Blood Pressure 98/57 L 117/62 [Right Brachial artery] O2 Saturation 97 99 Oxygen O2 Source Room air I&O (Last 24 Hrs): Intake and Output Totals x24h 11/02/23 11/03/23 11/04/23 23:59 23:59 23:59 Intake Total 100 5364.223 1390 Output Total 2525 1000 Balance 100 2839.223 390 General: Alert, Oriented x3, No acute distress HEENT: Atraumatic Neck: No JVD, No LAD Neuro: Alert, Non Focal Cardiovascular: Other (Positive S1-S2 no extra heart sounds.) Respiratory: Other (Good air exchange in all lung chakraborty no wheezing no crackles) Abdomen: Other (Soft positive bowel sounds nondistended) Extremities: No cyanosis, No edema Skin: No rashes - Results Results: Laboratory Results WBC < 0.1 x10^3/uL (4.8-10.8) L* 11/04/23 06:30 RBC 3.10 10^6/uL (4.70-6.10) L 11/04/23 06:30 Hgb 7.6 g/dL (14.0-18.0) L 11/04/23 06:30 Hct 23.7 % (42.0-52.0) L 11/04/23 06:30 MCV 76.5 fL (80.0-94.0) L 11/04/23 06:30 MCH 24.5 pg (27.0-31.0) L 11/04/23 06:30 MCHC 32.1 g/dL (32.0-36.0) 11/04/23 06:30 RDW 16.4 % (12.0-15.0) H 11/04/23 06:30 Plt Count 23 10^3/uL (130-450) L* 11/04/23 06:30 MPV 10.7 fL (7.4-11.4) 11/04/23 06:30 Neut # (Auto) Not Reportable 11/04/23 06:30 Lymph # (Auto) Not Reportable 11/04/23 06:30 [place] # (Auto) Not Reportable 11/04/23 06:30 Eos # (Auto) Not Reportable 11/04/23 06:30 Baso # (Auto) Not Reportable 11/04/23 06:30 Absolute Nucleated RBC Not Reportable 11/04/23 06:30 Total Counted 10 11/04/23 06:30 Band Neuts % (Manual) 0 % (0-10) 11/04/23 06:30 Abnorm Lymph % (Manual) 0 % 11/04/23 06:30 Nucleated RBC % Not Reportable 11/04/23 06:30 Neutrophils # (Manual) 0.0 10^3/uL (1.5-6.6) L* 11/04/23 06:30 Lymphocytes # (Manual) 0.0 10^3/uL (1.5-3.5) L 11/04/23 06:30 Monocytes # (Manual) 0.0 10^3/uL (0.0-1.0) 11/04/23 06:30 Eosinophils # (Manual) 0.0 10^3/uL (0-0.7) 11/04/23 06:30 Basophils # (Manual) 0.0 10^3/uL (0-0.1) 11/04/23 06:30 Differential Comment MANUAL DIFFERENTIAL 11/04/23 06:30 Manual Slide Review Indicated 11/03/23 14:20 Platelet Estimate DECREASED (<130,000) (NORMAL) 11/03/23 14:20 Platelet Morphology NORMAL APPEARANCE (NORMAL) 11/03/23 14:20 RBC Morph Micro Appear 1+ ANISOCYTOSIS (NORMAL) 1+ MICROCYTOSIS (NORMAL) 2+ HYPOCHROMASIA (NORMAL) 11/04/23 06:30 RBC Morph Micro Appear 1+ ANISOCYTOSIS (NORMAL) 1+ MICROCYTOSIS (NORMAL) 2+ HYPOCHROMASIA (NORMAL) 11/04/23 06:30 RBC Morph Micro Appear 1+ ANISOCYTOSIS (NORMAL) 1+ MICROCYTOSIS (NORMAL) 2+ HYPOCHROMASIA (NORMAL) 11/04/23 06:30 Sodium 134 mmol/L (135-145) L 11/04/23 06:30 Potassium 3.4 mmol/L (3.5-4.5) L 11/04/23 06:30 Chloride 103 mmol/L (101-111) 11/04/23 06:30 Carbon Dioxide 26 mmol/L (21-32) 11/04/23 06:30 Anion Gap 5.0 (6-13) L 11/04/23 06:30 BUN 20 mg/dL (6-20) 11/04/23 06:30 Creatinine 1.1 mg/dL (0.6-1.3) 11/04/23 06:30 Estimated GFR (MDRD) 67 (>89) L 11/04/23 06:30 Glucose 119 mg/dL (74-104) H 11/04/23 06:30 Lactic Acid 3.0 mmol/L (0.5-2.2) H* 11/02/23 20:36 Calcium 8.3 mg/dL (8.5-10.3) L 11/04/23 06:30 Phosphorus 2.6 mg/dL (2.5-5.0) 11/04/23 06:30 Magnesium 1.6 mg/dL (1.7-2.3) L 11/04/23 06:30 Total Bilirubin 0.9 mg/dL (0.2-1.0) 11/02/23 18:50 AST 47 IU/L (10-42) H 11/02/23 18:50 ALT 87 IU/L (10-60) H 11/02/23 18:50 Alkaline Phosphatase 209 IU/L (42-121) H 11/02/23 18:50 Total Protein 5.3 g/dL (6.4-8.9) L 11/02/23 18:50 Albumin 2.7 g/dL (3.2-5.5) L 11/02/23 18:50 Globulin 2.6 g/dL (2.1-4.2) 11/02/23 18:50 Albumin/Globulin Ratio 1.0 (1.0-2.2) 11/02/23 18:50 Lipase < 10 U/L (11-82) L 11/02/23 18:50 Urine Color DARK YELLOW 11/02/23 19:30 Urine Clarity HAZY (CLEAR) 11/02/23 19:30 Urine pH 6.0 PH (5.0-7.5) 11/02/23 19:30 Ur Specific [place] 1.020 (1.002-1.030) 11/02/23 19:30 Urine Protein 100 mg/dL (NEGATIVE) H 11/02/23 19:30 Urine Glucose (UA) NEGATIVE mg/dL (NEGATIVE) 11/02/23 19:30 Urine Ketones NEGATIVE mg/dL (NEGATIVE) 11/02/23 19:30 Urine Occult Blood LARGE (NEGATIVE) H 11/02/23 19:30 Urine Nitrite NEGATIVE (NEGATIVE) 11/02/23 19:30 Urine Bilirubin NEGATIVE (NEGATIVE) 11/02/23 19:30 Urine Urobilinogen 1 (NORMAL) E.U./dL (NORMAL) 11/02/23 19:30 Ur Leukocyte Esterase SMALL (NEGATIVE) H 11/02/23 19:30 Urine RBC 11-25 /HPF (0-5) H 11/02/23 19:30 Urine WBC 11-25 /HPF (0-3) H 11/02/23 19:30 Ur Squamous Epith Cells NONE SEEN (<= Few) 11/02/23 19:30 Urine Bacteria Few /HPF (None Seen) 11/02/23 19:30 Urine Yeast PRESENT 11/02/23 19:30 Ur Microscopic Review INDICATED 11/02/23 19:30 Urine Culture Comments INDICATED 11/02/23 19:30 Nasal Adenovirus (PCR) NOT DETECTED 11/02/23 20:16 Nasal B. parapertussis DNA (PCR) NOT DETECTED 11/02/23 20:16 Nasal Coronavir 229E PCR NOT DETECTED 11/02/23 20:16 Nasal Coronavir HKU1 PCR NOT DETECTED 11/02/23 20:16 Nasal Coronavir NL63 PCR NOT DETECTED 11/02/23 20:16 Nasal Coronavir OC43 PCR NOT DETECTED 11/02/23 20:16 Nasal Enterovir/Rhinovir PCR NOT DETECTED 11/02/23 20:16 Nasal Influenza B PCR NOT DETECTED 11/02/23 20:16 Nasal Influenza A PCR NOT DETECTED 11/02/23 20:16 Nasal Parainfluen 1 PCR NOT DETECTED 11/02/23 20:16 Nasal Parainfluen 2 PCR NOT DETECTED 11/02/23 20:16 Nasal Parainfluen 3 PCR NOT DETECTED 11/02/23 20:16 Nasal Parainfluen 4 PCR NOT DETECTED 11/02/23 20:16 Nasal RSV (PCR) NOT DETECTED 11/02/23 20:16 Nasal B.pertussis DNA PCR NOT DETECTED 11/02/23 20:16 Nasal C.pneumoniae (PCR) NOT DETECTED 11/02/23 20:16 Srinivas Human Metapneumo PCR NOT DETECTED 11/02/23 20:16 Nasal M.pneumoniae (PCR) NOT DETECTED 11/02/23 20:16 Nasal SARS-CoV-2 (PCR) NOT DETECTED 11/02/23 20:16 Blood Type O POSITIVE 11/03/23 02:30 Blood Type Recheck O POSITIVE 11/02/23 19:30 Antibody Screen NEGATIVE 11/03/23 02:30 Crossmatch IS Only See Detail 11/03/23 02:30
[2023-11-05 06:49] LABS: HCT - HEMATOCRIT 21.7 % (42.0-52.0); MEAN CORPUSCULAR HEMOGLOBIN 24.3 pg (27.0-31.0); MEAN CORPUSCULAR HGB CONC 31.8 g/dL (32.0-36.0); MEAN CORPUSCULAR VOLUME 76.4 fL (80.0-94.0); MEAN PLATELET VOLUME 9.5 fL (7.4-11.4); RED BLOOD COUNT 2.84 10^6/uL (4.70-6.10); RED CELL DISTRIBUTION WIDTH 16.7 % (12.0-15.0)
[2023-11-05 06:55] LABS: CALCIUM 8.2 mg/dL (8.5-10.3); CREATININE 1.2 mg/dL (0.6-1.3); POTASSIUM 3.6 mmol/L (3.5-4.5)
[2023-11-05 07:08] LABS: HGB - HEMOGLOBIN 6.9 g/dL (14.0-18.0); PLT - PLATELET COUNT 14 10^3/uL (130-450)
[2023-11-05 07:09] LABS: SLIDE REVIEW? Indicated
[2023-11-05 07:45] LABS: PLATELET ESTIMATE, MANUAL DECREASED (<130,000) (NORMAL); PLATELET MORPHOLOGY NORMAL APPEARANCE (NORMAL)
[2023-11-05] MEDS: MAGNESIUM OXIDE 400 MG TABLET PO SCH (08:09)
[2023-11-05 09:32] LABS: WHITE BLOOD COUNT < 0.1 x10^3/uL (4.8-10.8)
[2023-11-05 14:30] LABS: VANCOMYCIN,TROUGH 14.9 ug/mL
--- NOTE | 2023-11-05 14:46 | PHARMACY PROGRESS NOTE ---
- Therapy Status Therapy status: Trough therapeutic (Steady state trough of 14.9. Pt spiked a fever overnight but trough level suggests therapeutic drug levels. I will not obtain a peak level.) Basis for treatment: Empirical Trough goal: 400-600 - TERRENCE Risk Risk level for Acute Kidney Injury: Low Acute Kidney Injury risk factors: Goal trough >15 - Monitoring and Recommendation Clinical response to treatment: I&O Previous 24 hours 11/03/23 11/04/23 11/05/23 23:59 23:59 23:59 Intake Total 1999 Balance 1999 Lab Results 11/02/23 18:50 BUN 24 H Creatinine 1.3 Estimated GFR (MDRD) 55 L Cultures 11/02/23 20:36 Blood - Right Arm Blood Culture - Preliminary Pseudomonas Aeruginosa 11/02/23 20:30 Blood - Left Iv Start Blood Culture - Final Pseudomonas Aeruginosa 11/02/23 19:30 Urine,Clean Catch Urine Culture - Final >100,000 COLONIES/ML Polymicrobial growth including potential pathogens. This is suggestive of skin or other contamination. 11/02/23 20:30 Blood - Left Iv Start Blood Culture (PCR) - Final Monitoring plan: Daily serum creatinine Areas for additional monitoring: IV to PO when appropriate Pharmacy recommendation: Continue current regime
--- NOTE | 2023-11-05 23:21 | PROVIDER PROGRESS NOTE ---
Assessment/Plan - Problem List (1) Neutropenic fever Assessment/Plan: Continue neutropenic precautions. Continue cefepime and vancomycin. Blood cultures are pending. The possibility of giving him colony-stimulating factors and given his type of cancer it was not recommended and should be avoided. Patient encouraged to sit up in a chair and use incentive spirometer on an hourly basis during daylight hours. (2) Pancytopenia Conclusion/Plan: Pancytopenia most likely related to his recent chemotherapy. Continue to monitor on a daily basis. (3) Lymphoma Conclusion/Plan: Patient has a follicular lymphoma. His last dose of chemotherapy is R-CHOP (rituximab, cyclophosphamide, doxorubicin and prednisone Qualifiers: Lymphoma type: unspecified type Lymphoma site: unspecified region Qualified Code(s): C85.90 - Non-Hodgkin lymphoma, unspecified, unspecified site (4) Hypertension Conclusion/Plan: Continue amlodipine. (5) BPH (benign prostatic hyperplasia) Conclusion/Plan: Continue tamsulosin - Current Meds Current Meds: Current Medications Generic Name Dose Route Start Last Admin Trade Name Freq PRN Reason Stop Dose Admin Acetaminophen 650 mg 11/03/23 01:53 11/05/23 19:18 Acetaminophen 325 Mg Tablet PO 650 mg Q4HR PRN Administration Pain 1 to 4, or Fever Allopurinol 300 mg 11/03/23 09:00 11/05/23 21:00 Allopurinol 100 Mg Tablet PO 300 mg BID [facility] Administration Amlodipine Besylate 5 mg 11/03/23 09:00 11/05/23 07:54 Amlodipine 5 Mg Tablet PO 5 mg DAILY [facility] Administration Brimonidine Tartrate 1 drops 11/03/23 06:00 11/05/23 21:50 Brimonidine 0.2% Ophth Drops 10 Ml EACHEYE 1 drops TID [facility] Administration Docusate Sodium 250 - 500 mg 11/03/23 16:00 11/05/23 07:54 Docusate Sodium 250 Mg Capsule PO 250 mg DAILY [facility] Administration Gabapentin 200 mg 11/03/23 21:00 11/05/23 21:00 Gabapentin 100 Mg Capsule PO 200 mg HS [facility] Administration Vancomycin HCl 1 gm/ Sodium 250 mls @ 166.667 mls/hr 11/03/23 14:00 11/05/23 15:37 Chloride IV Infused Q12H [facility] Infusion Cefepime HCl 2 gm/ Sodium 100 mls @ 200 mls/hr 11/03/23 12:00 11/05/23 19:43 Chloride IV Infused Q8H [facility] Infusion Magnesium Oxide 400 mg 11/05/23 09:00 11/05/23 21:00 Magnesium Oxide 400 Mg Tablet PO 11/07/23 21:01 400 mg BID [facility] Administration Multi-Ingredient Mouthwash/Gargle 30 ml 11/04/23 09:50 11/05/23 12:01 Magic Mouthwash 120 Ml Bottle PO 30 ml Q4H PRN Administration Mouth Sore Pain Olanzapine 2.5 mg 11/03/23 21:00 11/05/23 21:00 Olanzapine Odt 5 Mg Tablet TL 2.5 mg HS [facility] Administration Oxycodone HCl 5 mg 11/03/23 01:53 11/05/23 08:58 Oxycodone 5 Mg Tablet PO 5 mg Q4HR PRN Administration Pain 8 to 10 Phenol/Menthol 2 sprays 11/03/23 10:53 11/03/23 20:57 Phenol Throat [place] 177 Ml MM 2 sprays Q2HR PRN Administration Throat Pain Polyethylene Glycol 17 gm 11/03/23 16:00 11/05/23 07:55 Polyethylene Glycol 3350 17 Gm Packet PO 17 gm DAILY [facility] Administration Senna 8.6 - 17.2 mg 11/03/23 16:00 11/05/23 07:54 Senna 8.6 Mg Tablet PO 8.6 mg DAILY [facility] Administration Sodium Chloride 10 ml 11/03/23 09:00 11/05/23 19:10 Sodium Chloride Flush 0.9% 10 Ml Syringe IVP 10 ml 0100,0900,1700 [facility] Administration Tamsulosin HCl 0.4 mg 11/03/23 21:00 11/05/23 21:00 Tamsulosin 0.4 Mg Capsule PO 0.4 mg HS [facility] Administration Throat Lozenges 1 lozenge 11/03/23 10:53 11/04/23 08:57 Benzocaine/Menthol Lozenge MM 1 lozenge Q2HR PRN Administration Throat pain - Lab Result Fish Bone Diagrams: 11/06/23 05:40 11/06/23 05:40 - Additional Planning My Orders: My Active Orders 11/05/23 09:00 Magnesium Oxide [Mag Ox] 400 mg PO BID Subjective - Subjective Patient Reports: Other (Mr. Candice Castano spiked a fever this morning greater than 38.1 C. He denies chest pain shortness of breath and abdominal pain. He has no other complaints at this time. He reports he feels well.) Objective Vital Signs: Vital Signs - 24 hr 11/05/23 11/05/23 11/05/23 00:18 01:59 07:52 Temperature 38.1 C H 36.7 C 38.1 C H Heart Rate [ 101 H Brachial] Heart Rate [ 100 Monitoring electrodes] Respiratory 20 20 Rate Blood Pressure 134/68 H 135/63 H [Right Brachial artery] O2 Saturation 97 98 11/05/23 11/05/23 11/05/23 08:24 08:46 09:34 Temperature 38.1 C H 38.1 C H 37.5 C Heart Rate [ 109 H Brachial] Heart Rate [ Monitoring electrodes] Respiratory 16 Rate Blood Pressure 128/50 L [Right Brachial artery] O2 Saturation 94 11/05/23 11/05/23 11/05/23 14:00 15:56 19:09 Temperature 37 C 36.4 C L 38.4 C H Heart Rate [ 95 Brachial] Heart Rate [ 97 Monitoring electrodes] Respiratory 18 17 Rate Blood Pressure 131/52 H 147/66 H [Right Brachial artery] O2 Saturation 94 100 11/05/23 19:19 Temperature 38.4 C H Heart Rate [ 109 H Brachial] Heart Rate [ Monitoring electrodes] Respiratory 18 Rate Blood Pressure 130/60 [Right Brachial artery] O2 Saturation 97 Oxygen O2 Source Room air I&O (Last 24 Hrs): Intake and Output Totals x24h 11/03/23 11/04/23 11/05/23 23:59 23:59 23:59 Intake Total 5364.223 1640 1540 Output Total 2525 1000 250 Balance 2839.531 391 4646 General: Alert, Oriented x3, No acute distress HEENT: Atraumatic Neck: Supple, No JVD Neuro: Alert Cardiovascular: Other (Positive S1-S2 no extra heart sounds.) Respiratory: Other (Good air exchange in all lung chakraborty no wheezing no crackles) Abdomen: Other (Soft nontender nondistended positive bowel sounds) - Results Results: Laboratory Results WBC < 0.1 x10^3/uL (4.8-10.8) L* 11/05/23 06:17 RBC 2.84 10^6/uL (4.70-6.10) L 11/05/23 06:17 Hgb 6.9 g/dL (14.0-18.0) L* 11/05/23 06:17 Hct 21.7 % (42.0-52.0) L 11/05/23 06:17 MCV 76.4 fL (80.0-94.0) L 11/05/23 06:17 MCH 24.3 pg (27.0-31.0) L 11/05/23 06:17 MCHC 31.8 g/dL (32.0-36.0) L 11/05/23 06:17 RDW 16.7 % (12.0-15.0) H 11/05/23 06:17 Plt Count 14 10^3/uL (130-450) L* 11/05/23 06:17 MPV 9.5 fL (7.4-11.4) 11/05/23 06:17 Neut # (Auto) 0.0 10^3/uL (1.5-6.6) L* 11/05/23 06:17 Lymph # (Auto) 0.0 10^3/uL (1.5-3.5) L 11/05/23 06:17 [place] # (Auto) 0.0 10^3/uL (0.0-1.0) 11/05/23 06:17 Eos # (Auto) 0.0 10^3/uL (0.0-0.7) 11/05/23 06:17 Baso # (Auto) 0.0 10^3/uL (0.0-0.1) 11/05/23 06:17 Absolute Nucleated RBC 0.00 x10^3/uL 11/05/23 06:17 Total Counted 10 11/04/23 06:30 Band Neuts % (Manual) 0 % (0-10) 11/04/23 06:30 Abnorm Lymph % (Manual) 0 % 11/04/23 06:30 Nucleated RBC % 0.0 /100WBC 11/05/23 06:17 Neutrophils # (Manual) 0.0 10^3/uL (1.5-6.6) L* 11/04/23 06:30 Lymphocytes # (Manual) 0.0 10^3/uL (1.5-3.5) L 11/04/23 06:30 Monocytes # (Manual) 0.0 10^3/uL (0.0-1.0) 11/04/23 06:30 Eosinophils # (Manual) 0.0 10^3/uL (0-0.7) 11/04/23 06:30 Basophils # (Manual) 0.0 10^3/uL (0-0.1) 11/04/23 06:30 Differential Comment MANUAL DIFFERENTIAL 11/04/23 06:30 Manual Slide Review Indicated 11/05/23 06:17 WBC Morphology ... (NORMAL) 11/05/23 06:17 Platelet Estimate DECREASED (<130,000) (NORMAL) 11/05/23 06:17 Platelet Morphology NORMAL APPEARANCE (NORMAL) 11/05/23 06:17 RBC Morph Micro Appear 1+ ANISOCYTOSIS (NORMAL) 1+ MICROCYTOSIS (NORMAL) 1+ HYPOCHROMASIA (NORMAL) 11/05/23 06:17 RBC Morph Micro Appear 1+ ANISOCYTOSIS (NORMAL) 1+ MICROCYTOSIS (NORMAL) 1+ HYPOCHROMASIA (NORMAL) 11/05/23 06:17 RBC Morph Micro Appear 1+ ANISOCYTOSIS (NORMAL) 1+ MICROCYTOSIS (NORMAL) 1+ HYPOCHROMASIA (NORMAL) 11/05/23 06:17 Sodium 133 mmol/L (135-145) L 11/05/23 06:17 Potassium 3.6 mmol/L (3.5-4.5) 11/05/23 06:17 Chloride 104 mmol/L (101-111) 11/05/23 06:17 Carbon Dioxide 25 mmol/L (21-32) 11/05/23 06:17 Anion Gap 4.0 (6-13) L 11/05/23 06:17 BUN 21 mg/dL (6-20) H 11/05/23 06:17 Creatinine 1.2 mg/dL (0.6-1.3) 11/05/23 06:17 Estimated GFR (MDRD) 60 (>89) L 11/05/23 06:17 Glucose 123 mg/dL (74-104) H 11/05/23 06:17 Lactic Acid 3.0 mmol/L (0.5-2.2) H* 11/02/23 20:36 Calcium 8.2 mg/dL (8.5-10.3) L 11/05/23 06:17 Phosphorus 2.6 mg/dL (2.5-5.0) 11/04/23 06:30 Magnesium 1.6 mg/dL (1.7-2.3) L 11/04/23 06:30 Total Bilirubin 0.9 mg/dL (0.2-1.0) 11/02/23 18:50 AST 47 IU/L (10-42) H 11/02/23 18:50 ALT 87 IU/L (10-60) H 11/02/23 18:50 Alkaline Phosphatase 209 IU/L (42-121) H 11/02/23 18:50 Total Protein 5.3 g/dL (6.4-8.9) L 11/02/23 18:50 Albumin 2.7 g/dL (3.2-5.5) L 11/02/23 18:50 Globulin 2.6 g/dL (2.1-4.2) 11/02/23 18:50 Albumin/Globulin Ratio 1.0 (1.0-2.2) 11/02/23 18:50 Lipase < 10 U/L (11-82) L 11/02/23 18:50 Urine Color DARK YELLOW 11/02/23 19:30 Urine Clarity HAZY (CLEAR) 11/02/23 19:30 Urine pH 6.0 PH (5.0-7.5) 11/02/23 19:30 Ur Specific [place] 1.020 (1.002-1.030) 11/02/23 19:30 Urine Protein 100 mg/dL (NEGATIVE) H 11/02/23 19:30 Urine Glucose (UA) NEGATIVE mg/dL (NEGATIVE) 11/02/23 19:30 Urine Ketones NEGATIVE mg/dL (NEGATIVE) 11/02/23 19:30 Urine Occult Blood LARGE (NEGATIVE) H 11/02/23 19:30 Urine Nitrite NEGATIVE (NEGATIVE) 11/02/23 19:30 Urine Bilirubin NEGATIVE (NEGATIVE) 11/02/23 19:30 Urine Urobilinogen 1 (NORMAL) E.U./dL (NORMAL) 11/02/23 19:30 Ur Leukocyte Esterase SMALL (NEGATIVE) H 11/02/23 19:30 Urine RBC 11-25 /HPF (0-5) H 11/02/23 19:30 Urine WBC 11-25 /HPF (0-3) H 11/02/23 19:30 Ur Squamous Epith Cells NONE SEEN (<= Few) 11/02/23 19:30 Urine Bacteria Few /HPF (None Seen) 11/02/23 19:30 Urine Yeast PRESENT 11/02/23 19:30 Ur Microscopic Review INDICATED 11/02/23 19:30 Urine Culture Comments INDICATED 11/02/23 19:30 Nasal Adenovirus (PCR) NOT DETECTED 11/02/23 20:16 Nasal B. parapertussis DNA (PCR) NOT DETECTED 11/02/23 20:16 Nasal Coronavir 229E PCR NOT DETECTED 11/02/23 20:16 Nasal Coronavir HKU1 PCR NOT DETECTED 11/02/23 20:16 Nasal Coronavir NL63 PCR NOT DETECTED 11/02/23 20:16 Nasal Coronavir OC43 PCR NOT DETECTED 11/02/23 20:16 Nasal Enterovir/Rhinovir PCR NOT DETECTED 11/02/23 20:16 Nasal Influenza B PCR NOT DETECTED 11/02/23 20:16 Nasal Influenza A PCR NOT DETECTED 11/02/23 20:16 Nasal Parainfluen 1 PCR NOT DETECTED 11/02/23 20:16 Nasal Parainfluen 2 PCR NOT DETECTED 11/02/23 20:16 Nasal Parainfluen 3 PCR NOT DETECTED 11/02/23 20:16 Nasal Parainfluen 4 PCR NOT DETECTED 11/02/23 20:16 Nasal RSV (PCR) NOT DETECTED 11/02/23 20:16 Nasal B.pertussis DNA PCR NOT DETECTED 11/02/23 20:16 Nasal C.pneumoniae (PCR) NOT DETECTED 11/02/23 20:16 Srinivas Human Metapneumo PCR NOT DETECTED 11/02/23 20:16 Nasal M.pneumoniae (PCR) NOT DETECTED 11/02/23 20:16 Nasal SARS-CoV-2 (PCR) NOT DETECTED 11/02/23 20:16 Last Dose Date UNK 11/05/23 14:00 Last Dose Time UNK 11/05/23 14:00 Vancomycin Trough 14.9 ug/mL 11/05/23 14:00 Blood Type O POSITIVE 11/03/23 02:30 Blood Type Recheck O POSITIVE 11/02/23 19:30 Antibody Screen NEGATIVE 11/03/23 02:30 Crossmatch IS Only See Detail 11/03/23 02:30
[2023-11-05] MEDS ORDERED: HYDROCORTISONE 1% CREAM 28 GM TUBE TOP PRN (23:30)
[2023-11-06 06:18] LABS: HCT - HEMATOCRIT 20.4 % (42.0-52.0); MEAN CORPUSCULAR HEMOGLOBIN 23.8 pg (27.0-31.0); MEAN CORPUSCULAR HGB CONC 31.4 g/dL (32.0-36.0); MEAN CORPUSCULAR VOLUME 75.8 fL (80.0-94.0); RED BLOOD COUNT 2.69 10^6/uL (4.70-6.10)
[2023-11-06 06:51] LABS: ALBUMIN 2.2 g/dL (3.2-5.5); BILIRUBIN,TOTAL 1.3 mg/dL (0.2-1.0); CALCIUM 8.4 mg/dL (8.5-10.3); CREATININE 1.2 mg/dL (0.6-1.3); MAGNESIUM 1.5 mg/dL (1.7-2.3); PHOSPHORUS 1.8 mg/dL (2.5-5.0); POTASSIUM 3.7 mmol/L (3.5-4.5); TOTAL PROTEIN 4.4 g/dL (6.4-8.9)
[2023-11-06 07:12] LABS: HGB - HEMOGLOBIN 6.4 g/dL (14.0-18.0); WHITE BLOOD COUNT 0.1 x10^3/uL (4.8-10.8)
[2023-11-06 07:13] LABS: PLT - PLATELET COUNT 9 10^3/uL (130-450)
[2023-11-06 07:14] LABS: SLIDE REVIEW? Indicated
[2023-11-06 07:15] LABS: PLATELET ESTIMATE, MANUAL DECREASED (<130,000) (NORMAL); PLATELET MORPHOLOGY NORMAL APPEARANCE (NORMAL)
--- NOTE | 2023-11-06 14:46 | PROVIDER PROGRESS NOTE ---
Assessment/Plan - Problem List (1) Neutropenic fever Assessment/Plan: Continue neutropenic precautions. Continue cefepime and vancomycin. 2 sets of blood cultures collected on November 02, 2023 are growing Pseudomonas aeruginosa and it appears to be sensitive to cefepime. The possibility of giving him colony-stimulating factors and given his type of cancer it was not recommended and should be avoided. Patient encouraged to sit up in a chair and use incentive spirometer on an hourly basis during daylight hours. (2) Pancytopenia Conclusion/Plan: Pancytopenia most likely related to his recent chemotherapy. Continue to monitor on a daily basis. Replace blood products as indicated. Patient to receive platelet transfusion and 1 unit of PRBCs today. (3) Lymphoma Conclusion/Plan: Patient has a follicular lymphoma. His last dose of chemotherapy is R-CHOP (rituximab, cyclophosphamide, doxorubicin and prednisone Qualifiers: Lymphoma type: unspecified type Lymphoma site: unspecified region Qualified Code(s): C85.90 - Non-Hodgkin lymphoma, unspecified, unspecified site (4) Hypertension Conclusion/Plan: Continue amlodipine. (5) BPH (benign prostatic hyperplasia) Conclusion/Plan: Continue tamsulosin - Current Meds Current Meds: Current Medications Generic Name Dose Route Start Last Admin Trade Name Freq PRN Reason Stop Dose Admin Acetaminophen 650 mg 11/03/23 01:53 11/06/23 11:21 Acetaminophen 325 Mg Tablet PO 650 mg Q4HR PRN Administration Pain 1 to 4, or Fever Allopurinol 300 mg 11/03/23 09:00 11/06/23 08:57 Allopurinol 100 Mg Tablet PO 300 mg BID [facility] Administration Amlodipine Besylate 5 mg 11/03/23 09:00 11/06/23 08:55 Amlodipine 5 Mg Tablet PO 5 mg DAILY [facility] Administration Brimonidine Tartrate 1 drops 11/03/23 06:00 11/06/23 13:22 Brimonidine 0.2% Ophth Drops 10 Ml EACHEYE 1 drops TID [facility] Administration Docusate Sodium 250 - 500 mg 11/03/23 16:00 11/06/23 08:54 Docusate Sodium 250 Mg Capsule PO 250 mg DAILY [facility] Administration Gabapentin 200 mg 11/03/23 21:00 11/05/23 21:00 Gabapentin 100 Mg Capsule PO 200 mg HS [facility] Administration Vancomycin HCl 1 gm/ Sodium 250 mls @ 166.667 mls/hr 11/03/23 14:00 11/06/23 13:45 Chloride IV 167 mls/hr Q12H [facility] Administration Cefepime HCl 2 gm/ Sodium 100 mls @ 200 mls/hr 11/03/23 12:00 11/06/23 11:55 Chloride IV Infused Q8H [facility] Infusion Magnesium Oxide 400 mg 11/05/23 09:00 11/06/23 08:54 Magnesium Oxide 400 Mg Tablet PO 11/07/23 21:01 400 mg BID [facility] Administration Multi-Ingredient Mouthwash/Gargle 30 ml 11/04/23 09:50 11/05/23 12:01 Magic Mouthwash 120 Ml Bottle PO 30 ml Q4H PRN Administration Mouth Sore Pain Olanzapine 2.5 mg 11/03/23 21:00 11/05/23 21:00 Olanzapine Odt 5 Mg Tablet TL 2.5 mg HS [facility] Administration Oxycodone HCl 5 mg 11/03/23 01:53 11/06/23 08:53 Oxycodone 5 Mg Tablet PO 5 mg Q4HR PRN Administration Pain 8 to 10 Phenol/Menthol 2 sprays 11/03/23 10:53 11/03/23 20:57 Phenol Throat [place] 177 Ml MM 2 sprays Q2HR PRN Administration Throat Pain Polyethylene Glycol 17 gm 11/03/23 16:00 11/06/23 08:54 Polyethylene Glycol 3350 17 Gm Packet PO 17 gm DAILY [facility] Administration Senna 8.6 - 17.2 mg 11/03/23 16:00 11/06/23 08:54 Senna 8.6 Mg Tablet PO 8.6 mg DAILY [facility] Administration Sodium Chloride 10 ml 11/03/23 09:00 11/06/23 08:55 Sodium Chloride Flush 0.9% 10 Ml Syringe IVP 10 ml 0100,0900,1700 [facility] Administration Tamsulosin HCl 0.4 mg 11/03/23 21:00 11/05/23 21:00 Tamsulosin 0.4 Mg Capsule PO 0.4 mg HS [facility] Administration Throat Lozenges 1 lozenge 11/03/23 10:53 11/04/23 08:57 Benzocaine/Menthol Lozenge MM 1 lozenge Q2HR PRN Administration Throat pain - Lab Result Fish Bone Diagrams: 11/06/23 05:40 11/06/23 05:40 - Additional Planning My Orders: My Active Orders 11/05/23 23:30 Hydrocortisone 1% Cream [Hydrocortisone] 1 applic TOP BID PRN 11/06/23 08:41 Transfuse Platelet Pheresis Pk [RC] .ONCE Subjective - Subjective Patient Reports: Other (Alert. Continues to spike fevers. No other complaints at this time.) Objective Vital Signs: Vital Signs - 24 hr 11/05/23 11/05/23 11/05/23 15:56 19:09 19:19 Temperature 36.4 C L 38.4 C H 38.4 C H Heart Rate [ 109 H Brachial] Heart Rate [ 97 Monitoring electrodes] Respiratory 17 18 Rate Blood Pressure 147/66 H 130/60 [Right Brachial artery] O2 Saturation 100 97 11/05/23 11/06/23 11/06/23 23:58 08:53 11:51 Temperature 36.7 C 38.5 C H 37 C Heart Rate [ 100 118 H Brachial] Heart Rate [ Monitoring electrodes] Respiratory 20 18 Rate Blood Pressure 127/66 171/81 H [Right Brachial artery] O2 Saturation 100 97 Oxygen O2 Source Room air I&O (Last 24 Hrs): Intake and Output Totals x24h 11/04/23 11/05/23 11/06/23 23:59 23:59 23:59 Intake Total 1640 1540 1530 Output Total 1000 250 Balance 640 1290 1530 General: Alert, Oriented x3, No acute distress HEENT: Atraumatic Neck: No JVD, No thyromegaly Neuro: Alert, Non Focal Cardiovascular: Other (Positive S1-S2 no extra heart sounds.) Respiratory: Other (Good air exchange in all lung chakraborty no wheezing no crackles) Abdomen: Other (Soft nontender nondistended positive bowel sounds.) Extremities: No cyanosis, No edema Skin: No rashes - Results Results: Laboratory Results WBC 0.1 x10^3/uL (4.8-10.8) L* 11/06/23 05:40 RBC 2.69 10^6/uL (4.70-6.10) L 11/06/23 05:40 Hgb 6.4 g/dL (14.0-18.0) L* 11/06/23 05:40 Hct 20.4 % (42.0-52.0) L 11/06/23 05:40 MCV 75.8 fL (80.0-94.0) L 11/06/23 05:40 MCH 23.8 pg (27.0-31.0) L 11/06/23 05:40 MCHC 31.4 g/dL (32.0-36.0) L 11/06/23 05:40 RDW 17.0 % (12.0-15.0) H 11/06/23 05:40 Plt Count 9 10^3/uL (130-450) L* 11/06/23 05:40 MPV 9.5 fL (7.4-11.4) 11/05/23 06:17 Neut # (Auto) 0.0 10^3/uL (1.5-6.6) L* 11/06/23 05:40 Lymph # (Auto) 0.0 10^3/uL (1.5-3.5) L 11/06/23 05:40 [place] # (Auto) 0.0 10^3/uL (0.0-1.0) 11/06/23 05:40 Eos # (Auto) 0.0 10^3/uL (0.0-0.7) 11/06/23 05:40 Baso # (Auto) 0.0 10^3/uL (0.0-0.1) 11/06/23 05:40 Absolute Nucleated RBC 0.00 x10^3/uL 11/06/23 05:40 Total Counted 10 11/04/23 06:30 Band Neuts % (Manual) 0 % (0-10) 11/04/23 06:30 Abnorm Lymph % (Manual) 0 % 11/04/23 06:30 Nucleated RBC % 0.0 /100WBC 11/06/23 05:40 Neutrophils # (Manual) 0.0 10^3/uL (1.5-6.6) L* 11/04/23 06:30 Lymphocytes # (Manual) 0.0 10^3/uL (1.5-3.5) L 11/04/23 06:30 Monocytes # (Manual) 0.0 10^3/uL (0.0-1.0) 11/04/23 06:30 Eosinophils # (Manual) 0.0 10^3/uL (0-0.7) 11/04/23 06:30 Basophils # (Manual) 0.0 10^3/uL (0-0.1) 11/04/23 06:30 Differential Comment MANUAL DIFFERENTIAL 11/04/23 06:30 Manual Slide Review Indicated 11/06/23 05:40 WBC Morphology ... (NORMAL) 11/05/23 06:17 Platelet Estimate DECREASED (<130,000) (NORMAL) 11/06/23 05:40 Platelet Morphology NORMAL APPEARANCE (NORMAL) 11/06/23 05:40 RBC Morph Micro Appear 1+ ANISOCYTOSIS (NORMAL) 1+ MICROCYTOSIS (NORMAL) 1+ HYPOCHROMASIA (NORMAL) 11/05/23 06:17 RBC Morph Micro Appear 1+ ANISOCYTOSIS (NORMAL) 1+ MICROCYTOSIS (NORMAL) 1+ HYPOCHROMASIA (NORMAL) 11/05/23 06:17 RBC Morph Micro Appear 1+ ANISOCYTOSIS (NORMAL) 1+ MICROCYTOSIS (NORMAL) 1+ HYPOCHROMASIA (NORMAL) 11/05/23 06:17 Sodium 135 mmol/L (135-145) 11/06/23 05:40 Potassium 3.7 mmol/L (3.5-4.5) 11/06/23 05:40 Chloride 105 mmol/L (101-111) 11/06/23 05:40 Carbon Dioxide 25 mmol/L (21-32) 11/06/23 05:40 Anion Gap 5.0 (6-13) L 11/06/23 05:40 BUN 18 mg/dL (6-20) 11/06/23 05:40 Creatinine 1.2 mg/dL (0.6-1.3) 11/06/23 05:40 Estimated GFR (MDRD) 60 (>89) L 11/06/23 05:40 Glucose 128 mg/dL (74-104) H 11/06/23 05:40 Lactic Acid 3.0 mmol/L (0.5-2.2) H* 11/02/23 20:36 Calcium 8.4 mg/dL (8.5-10.3) L 11/06/23 05:40 Phosphorus 1.8 mg/dL (2.5-5.0) L 11/06/23 05:40 Magnesium 1.5 mg/dL (1.7-2.3) L 11/06/23 05:40 Total Bilirubin 1.3 mg/dL (0.2-1.0) H 11/06/23 05:40 AST 22 IU/L (10-42) 11/06/23 05:40 ALT 42 IU/L (10-60) 11/06/23 05:40 Alkaline Phosphatase 218 IU/L (42-121) H 11/06/23 05:40 Total Protein 4.4 g/dL (6.4-8.9) L 11/06/23 05:40 Albumin 2.2 g/dL (3.2-5.5) L 11/06/23 05:40 Globulin 2.2 g/dL (2.1-4.2) 11/06/23 05:40 Albumin/Globulin Ratio 1.0 (1.0-2.2) 11/06/23 05:40 Lipase < 10 U/L (11-82) L 11/02/23 18:50 Urine Color DARK YELLOW 11/02/23 19:30 Urine Clarity HAZY (CLEAR) 11/02/23 19:30 Urine pH 6.0 PH (5.0-7.5) 11/02/23 19:30 Ur Specific [place] 1.020 (1.002-1.030) 11/02/23 19:30 Urine Protein 100 mg/dL (NEGATIVE) H 11/02/23 19:30 Urine Glucose (UA) NEGATIVE mg/dL (NEGATIVE) 11/02/23 19:30 Urine Ketones NEGATIVE mg/dL (NEGATIVE) 11/02/23 19:30 Urine Occult Blood LARGE (NEGATIVE) H 11/02/23 19:30 Urine Nitrite NEGATIVE (NEGATIVE) 11/02/23 19:30 Urine Bilirubin NEGATIVE (NEGATIVE) 11/02/23 19:30 Urine Urobilinogen 1 (NORMAL) E.U./dL (NORMAL) 11/02/23 19:30 Ur Leukocyte Esterase SMALL (NEGATIVE) H 11/02/23 19:30 Urine RBC 11-25 /HPF (0-5) H 11/02/23 19:30 Urine WBC 11-25 /HPF (0-3) H 11/02/23 19:30 Ur Squamous Epith Cells NONE SEEN (<= Few) 11/02/23 19:30 Urine Bacteria Few /HPF (None Seen) 11/02/23 19:30 Urine Yeast PRESENT 11/02/23 19:30 Ur Microscopic Review INDICATED 11/02/23 19:30 Urine Culture Comments INDICATED 11/02/23 19:30 Nasal Adenovirus (PCR) NOT DETECTED 11/02/23 20:16 Nasal B. parapertussis DNA (PCR) NOT DETECTED 11/02/23 20:16 Nasal Coronavir 229E PCR NOT DETECTED 11/02/23 20:16 Nasal Coronavir HKU1 PCR NOT DETECTED 11/02/23 20:16 Nasal Coronavir NL63 PCR NOT DETECTED 11/02/23 20:16 Nasal Coronavir OC43 PCR NOT DETECTED 11/02/23 20:16 Nasal Enterovir/Rhinovir PCR NOT DETECTED 11/02/23 20:16 Nasal Influenza B PCR NOT DETECTED 11/02/23 20:16 Nasal Influenza A PCR NOT DETECTED 11/02/23 20:16 Nasal Parainfluen 1 PCR NOT DETECTED 11/02/23 20:16 Nasal Parainfluen 2 PCR NOT DETECTED 11/02/23 20:16 Nasal Parainfluen 3 PCR NOT DETECTED 11/02/23 20:16 Nasal Parainfluen 4 PCR NOT DETECTED 11/02/23 20:16 Nasal RSV (PCR) NOT DETECTED 11/02/23 20:16 Nasal B.pertussis DNA PCR NOT DETECTED 11/02/23 20:16 Nasal C.pneumoniae (PCR) NOT DETECTED 11/02/23 20:16 Srinivas Human Metapneumo PCR NOT DETECTED 11/02/23 20:16 Nasal M.pneumoniae (PCR) NOT DETECTED 11/02/23 20:16 Nasal SARS-CoV-2 (PCR) NOT DETECTED 11/02/23 20:16 Last Dose Date UNK 11/05/23 14:00 Last Dose Time K 11/05/23 14:00 Vancomycin Trough 14.9 ug/mL 11/05/23 14:00 Blood Type O POSITIVE 11/03/23 02:30 Blood Type Recheck O POSITIVE 11/02/23 19:30 Antibody Screen NEGATIVE 11/03/23 02:30 Crossmatch IS Only See Detail 11/03/23 02:30
[2023-11-07 05:16] LABS: HCT - HEMATOCRIT 22.3 % (42.0-52.0); HGB - HEMOGLOBIN 7.5 g/dL (14.0-18.0); MEAN CORPUSCULAR HEMOGLOBIN 25.9 pg (27.0-31.0); MEAN CORPUSCULAR HGB CONC 33.6 g/dL (32.0-36.0); MEAN CORPUSCULAR VOLUME 76.9 fL (80.0-94.0); MEAN PLATELET VOLUME 9.6 fL (7.4-11.4); MONOCYTES % (AUTO) 12.5 %; NEUTROPHILS % (AUTO) 62.5 %; RED CELL DISTRIBUTION WIDTH 16.6 % (12.0-15.0)
[2023-11-07 05:50] LABS: MAGNESIUM 1.5 mg/dL (1.7-2.3)
[2023-11-07 05:56] LABS: ALBUMIN 2.3 g/dL (3.2-5.5); ALBUMIN/GLOBULIN RATIO 1.2 (1.0-2.2); BILIRUBIN,TOTAL 1.4 mg/dL (0.2-1.0); CALCIUM 8.4 mg/dL (8.5-10.3); CREATININE 1.2 mg/dL (0.6-1.3); PHOSPHORUS 2.4 mg/dL (2.5-5.0); POTASSIUM 3.4 mmol/L (3.5-4.5); TOTAL PROTEIN 4.3 g/dL (6.4-8.9)
[2023-11-07 06:55] LABS: PLT - PLATELET COUNT 19 10^3/uL (130-450); WHITE BLOOD COUNT 0.1 x10^3/uL (4.8-10.8)
[2023-11-07 06:56] LABS: NEUTROPHILS # (AUTO) 0.1 10^3/uL (1.5-6.6); SLIDE REVIEW? Indicated
[2023-11-07 06:57] LABS: PLATELET ESTIMATE, MANUAL DECREASED (<130,000) (NORMAL); PLATELET MORPHOLOGY NORMAL APPEARANCE (NORMAL); RBC MORPHOLOGY (MULTIPLE) NORMAL APPEARANCE (NORMAL)
[2023-11-07] MEDS: ZINC OXIDE 12% OINT 57 GM TUBE TOP PRN (09:00)
--- NOTE | 2023-11-07 15:16 | PROVIDER PROGRESS NOTE ---
Assessment/Plan - Problem List (1) Neutropenic fever Assessment/Plan: Continue neutropenic precautions. Continue cefepime and vancomycin.Consider discontinuing vancomycin if patient's fever resolves. 2 sets of blood cultures collected on November 02, 2023 are growing Pseudomonas aeruginosa and it appears to be sensitive to cefepime.He will require 14 days of antibiotics and could possibly be discharged to home and receive IV antibiotics at home once his fever resolves. Over the last several days he is continually spiked fevers intermittently. He has a port to give IV antibiotics. The possibility of giving him colony-stimulating factors was discussed with his oncologist's group (his oncologist is Dr. Karis Peralta [phone]) and given his type of cancer it was not recommended and should be avoided. Patient encouraged to sit up in a chair and use incentive spirometer on an hourly basis during daylight hours. (2) Pancytopenia Conclusion/Plan: Pancytopenia most likely related to his recent chemotherapy. Continue to monitor on a daily basis. Replace blood products as indicated. Patient to receive platelet transfusion and 1 unit of PRBCs today. (3) Mucositis Conclusion/Plan: Mucositis secondary to chemotherapy. He is currently using a Magic mouthwash and chlorhexidine rinse. I discussed with pharmacy the possibility of using a doxepin rinse and pharmacy is not sure if that is possible at this hospital. He may benefit from a topical vitamin E treatment but I do not think that is available here at this hospital. The patient does not appear to have thrush at this time. (4) Lymphoma Conclusion/Plan: Patient has a follicular lymphoma. His last dose of chemotherapy was with R- CHOP (rituximab, cyclophosphamide, doxorubicin and prednisone) Qualifiers: Lymphoma type: unspecified type Lymphoma site: unspecified region Qualified Code(s): C85.90 - Non-Hodgkin lymphoma, unspecified, unspecified site (5) Hypertension Conclusion/Plan: Continue amlodipine. (6) BPH (benign prostatic hyperplasia) Conclusion/Plan: Continue tamsulosin - Current Meds Current Meds: Current Medications Generic Name Dose Route Start Last Admin Trade Name Freq PRN Reason Stop Dose Admin Acetaminophen 650 mg 11/03/23 01:53 11/07/23 01:44 Acetaminophen 325 Mg Tablet PO 650 mg Q4HR PRN Administration Pain 1 to 4, or Fever Allopurinol 300 mg 11/03/23 09:00 11/07/23 08:42 Allopurinol 100 Mg Tablet PO 300 mg BID [facility] Administration Amlodipine Besylate 5 mg 11/03/23 09:00 11/07/23 08:42 Amlodipine 5 Mg Tablet PO 5 mg DAILY [facility] Administration Brimonidine Tartrate 1 drops 11/03/23 06:00 11/07/23 14:09 Brimonidine 0.2% Ophth Drops 10 Ml EACHEYE 1 drops TID [facility] Administration Docusate Sodium 250 - 500 mg 11/03/23 16:00 11/07/23 08:41 Docusate Sodium 250 Mg Capsule PO 250 mg DAILY [facility] Administration Gabapentin 200 mg 11/03/23 21:00 11/06/23 21:20 Gabapentin 100 Mg Capsule PO 200 mg HS [facility] Administration Vancomycin HCl 1 gm/ Sodium 250 mls @ 166.667 mls/hr 11/03/23 14:00 11/07/23 14:10 Chloride IV 167 mls/hr Q12H [facility] Administration Cefepime HCl 2 gm/ Sodium 100 mls @ 200 mls/hr 11/03/23 12:00 11/07/23 10:50 Chloride IV 200 mls/hr Q8H [facility] Administration Magnesium Oxide 400 mg 11/05/23 09:00 11/07/23 08:42 Magnesium Oxide 400 Mg Tablet PO 11/07/23 21:01 400 mg BID [facility] Administration Multi-Ingredient Mouthwash/Gargle 30 ml 11/04/23 09:50 11/07/23 10:49 Magic Mouthwash 120 Ml Bottle PO 30 ml Q4H PRN Administration Mouth Sore Pain Multi-Ingredient Ointment 1 applic 11/03/23 10:53 11/07/23 09:00 Zinc Oxide 12% Oint 57 Gm Tube TOP 1 applic PRN PRN Administration Skin Care Olanzapine 2.5 mg 11/03/23 21:00 11/06/23 21:17 Olanzapine Odt 5 Mg Tablet TL 2.5 mg HS [facility] Administration Oxycodone HCl 5 mg 11/03/23 01:53 11/06/23 08:53 Oxycodone 5 Mg Tablet PO 5 mg Q4HR PRN Administration Pain 8 to 10 Phenol/Menthol 2 sprays 11/03/23 10:53 11/03/23 20:57 Phenol Throat [place] 177 Ml MM 2 sprays Q2HR PRN Administration Throat Pain Polyethylene Glycol 17 gm 11/03/23 16:00 11/07/23 08:42 Polyethylene Glycol 3350 17 Gm Packet PO Not Given DAILY [facility] Senna 8.6 - 17.2 mg 11/03/23 16:00 11/07/23 08:41 Senna 8.6 Mg Tablet PO 17.2 mg DAILY [facility] Administration Sodium Chloride 10 ml 11/03/23 09:00 11/07/23 08:42 Sodium Chloride Flush 0.9% 10 Ml Syringe IVP 10 ml 0100,0900,1700 [facility] Administration Tamsulosin HCl 0.4 mg 11/03/23 21:00 11/06/23 21:19 Tamsulosin 0.4 Mg Capsule PO 0.4 mg HS [facility] Administration Throat Lozenges 1 lozenge 11/03/23 10:53 11/04/23 08:57 Benzocaine/Menthol Lozenge MM 1 lozenge Q2HR PRN Administration Throat pain - Lab Result Fish Bone Diagrams: 11/07/23 04:45 11/07/23 04:45 - Additional Planning My Orders: My Active Orders 11/06/23 15:12 Transfuse RBCs Leukoreduced [RC] .ONCE 11/07/23 Lunch Neutropenic (Low Microbial) Diet [DIET] 11/07/23 16:00 Potassium Chloride Oral Soln [Potassium Chloride] 40 meq PO BID 11/07/23 17:00 Multivitamin W/Minerals [Theragran M] 1 tab PO DAILYWM Subjective - Subjective Patient Reports: Other (Alert. Denies chest pain, dyspnea and abdominal pain. Continues to complain of mouth pain. No other complaints) Objective Vital Signs: Vital Signs - 24 hr 11/06/23 11/06/23 11/06/23 16:00 16:12 16:31 Temperature 36.5 C 36.7 C 36.7 C Heart Rate [ Brachial] Heart Rate [ 98 96 91 Monitoring electrodes] Respiratory 18 20 20 Rate Blood Pressure 99/70 128/68 144/67 H [Right Brachial artery] O2 Saturation 99 98 98 11/06/23 11/06/23 11/06/23 17:05 17:50 18:11 Temperature 36.6 C 36.8 C 37.1 C Heart Rate [ Brachial] Heart Rate [ 92 102 H 108 H Monitoring electrodes] Respiratory 16 19 21 Rate Blood Pressure 143/60 H 166/73 H 110/73 [Right Brachial artery] O2 Saturation 99 97 11/06/23 11/06/23 11/07/23 19:54 23:53 04:00 Temperature 36.7 C 38.2 C H 37.4 C Heart Rate [ 102 H Brachial] Heart Rate [ 107 H Monitoring electrodes] Respiratory 16 16 Rate Blood Pressure 159/94 H 150/71 H [Right Brachial artery] O2 Saturation 97 11/07/23 08:00 Temperature 37.2 C Heart Rate [ 103 H Brachial] Heart Rate [ Monitoring electrodes] Respiratory 18 Rate Blood Pressure 151/76 H [Right Brachial artery] O2 Saturation 99 Oxygen O2 Source Room air I&O (Last 24 Hrs): Intake and Output Totals x24h 11/05/23 11/06/23 11/07/23 23:59 23:59 23:59 Intake Total 1540 2686 860 Output Total 250 Balance 1290 2686 860 General: Alert, Oriented x3 HEENT: Atraumatic Neck: Supple, No JVD Neuro: Alert, Focal Deficits Cardiovascular: Normal S1, Normal S2, No murmurs Respiratory: No respiratory distress, Breath sounds nml Abdomen: Normal bowel sounds, Soft, No tenderness Extremities: No cyanosis, No edema Skin: No rashes - Results Results: Laboratory Results WBC 0.1 x10^3/uL (4.8-10.8) L* 11/07/23 04:45 RBC 2.90 10^6/uL (4.70-6.10) L 11/07/23 04:45 Hgb 7.5 g/dL (14.0-18.0) L 11/07/23 04:45 Hct 22.3 % (42.0-52.0) L 11/07/23 04:45 MCV 76.9 fL (80.0-94.0) L 11/07/23 04:45 MCH 25.9 pg (27.0-31.0) L 11/07/23 04:45 MCHC 33.6 g/dL (32.0-36.0) 11/07/23 04:45 RDW 16.6 % (12.0-15.0) H 11/07/23 04:45 Plt Count 19 10^3/uL (130-450) L* 11/07/23 04:45 MPV 9.6 fL (7.4-11.4) 11/07/23 04:45 Neut # (Auto) 0.1 10^3/uL (1.5-6.6) L* 11/07/23 04:45 Lymph # (Auto) 0.0 10^3/uL (1.5-3.5) L 11/07/23 04:45 [place] # (Auto) 0.0 10^3/uL (0.0-1.0) 11/07/23 04:45 Eos # (Auto) 0.0 10^3/uL (0.0-0.7) 11/07/23 04:45 Baso # (Auto) 0.0 10^3/uL (0.0-0.1) 11/07/23 04:45 Absolute Nucleated RBC 0.00 x10^3/uL 11/07/23 04:45 Total Counted 10 11/04/23 06:30 Band Neuts % (Manual) 0 % (0-10) 11/04/23 06:30 Abnorm Lymph % (Manual) 0 % 11/04/23 06:30 Nucleated RBC % 0.0 /100WBC 11/07/23 04:45 Neutrophils # (Manual) 0.0 10^3/uL (1.5-6.6) L* 11/04/23 06:30 Lymphocytes # (Manual) 0.0 10^3/uL (1.5-3.5) L 11/04/23 06:30 Monocytes # (Manual) 0.0 10^3/uL (0.0-1.0) 11/04/23 06:30 Eosinophils # (Manual) 0.0 10^3/uL (0-0.7) 11/04/23 06:30 Basophils # (Manual) 0.0 10^3/uL (0-0.1) 11/04/23 06:30 Differential Comment MANUAL DIFFERENTIAL 11/04/23 06:30 Manual Slide Review Indicated 11/07/23 04:45 WBC Morphology (NORMAL) 11/07/23 04:45 Platelet Estimate DECREASED (<130,000) (NORMAL) 11/07/23 04:45 Platelet Morphology NORMAL APPEARANCE (NORMAL) 11/07/23 04:45 RBC Morph Micro Appear NORMAL APPEARANCE (NORMAL) 11/07/23 04:45 Sodium 136 mmol/L (135-145) 11/07/23 04:45 Potassium 3.4 mmol/L (3.5-4.5) L 11/07/23 04:45 Chloride 106 mmol/L (101-111) 11/07/23 04:45 Carbon Dioxide 24 mmol/L (21-32) 11/07/23 04:45 Anion Gap 6.0 (6-13) 11/07/23 04:45 BUN 22 mg/dL (6-20) H 11/07/23 04:45 Creatinine 1.2 mg/dL (0.6-1.3) 11/07/23 04:45 Estimated GFR (MDRD) 60 (>89) L 11/07/23 04:45 Glucose 131 mg/dL (74-104) H 11/07/23 04:45 Lactic Acid 3.0 mmol/L (0.5-2.2) H* 11/02/23 20:36 Calcium 8.4 mg/dL (8.5-10.3) L 11/07/23 04:45 Phosphorus 2.4 mg/dL (2.5-5.0) L 11/07/23 04:45 Magnesium 1.5 mg/dL (1.7-2.3) L 11/07/23 04:45 Total Bilirubin 1.4 mg/dL (0.2-1.0) H 11/07/23 04:45 AST 35 IU/L (10-42) 11/07/23 04:45 ALT 41 IU/L (10-60) 11/07/23 04:45 Alkaline Phosphatase 215 IU/L (42-121) H 11/07/23 04:45 Total Protein 4.3 g/dL (6.4-8.9) L 11/07/23 04:45 Albumin 2.3 g/dL (3.2-5.5) L 11/07/23 04:45 Globulin 2.0 g/dL (2.1-4.2) L 11/07/23 04:45 Albumin/Globulin Ratio 1.2 (1.0-2.2) 11/07/23 04:45 Lipase < 10 U/L (11-82) L 11/02/23 18:50 Urine Color DARK YELLOW 11/02/23 19:30 Urine Clarity HAZY (CLEAR) 11/02/23 19:30 Urine pH 6.0 PH (5.0-7.5) 11/02/23 19:30 Ur Specific [place] 1.020 (1.002-1.030) 11/02/23 19:30 Urine Protein 100 mg/dL (NEGATIVE) H 11/02/23 19:30 Urine Glucose (UA) NEGATIVE mg/dL (NEGATIVE) 11/02/23 19:30 Urine Ketones NEGATIVE mg/dL (NEGATIVE) 11/02/23 19:30 Urine Occult Blood LARGE (NEGATIVE) H 11/02/23 19:30 Urine Nitrite NEGATIVE (NEGATIVE) 11/02/23 19: Urine Bilirubin NEGATIVE (NEGATIVE) 11/02/23 19:30 Urine Urobilinogen 1 (NORMAL) E.U./dL (NORMAL) 11/02/23 19:30 Ur Leukocyte Esterase SMALL (NEGATIVE) H 11/02/23 19:30 Urine RBC 11-25 /HPF (0-5) H 11/02/23 19:30 Urine WBC 11-25 /HPF (0-3) H 11/02/23 19:30 Ur Squamous Epith Cells NONE SEEN (<= Few) 11/02/23 19:30 Urine Bacteria Few /HPF (None Seen) 11/02/23 19:30 Urine Yeast PRESENT 11/02/23 19:30 Ur Microscopic Review INDICATED 11/02/23 19:30 Urine Culture Comments INDICATED 11/02/23 19:30 Nasal Adenovirus (PCR) NOT DETECTED 11/02/23 20:16 Nasal B. parapertussis DNA (PCR) NOT DETECTED 11/02/23 20:16 Nasal Coronavir 229E PCR NOT DETECTED 11/02/23 20:16 Nasal Coronavir HKU1 PCR NOT DETECTED 11/02/23 20:16 Nasal Coronavir NL63 PCR NOT DETECTED 11/02/23 20:16 Nasal Coronavir OC43 PCR NOT DETECTED 11/02/23 20:16 Nasal Enterovir/Rhinovir PCR NOT DETECTED 11/02/23 20:16 Nasal Influenza B PCR NOT DETECTED 11/02/23 20:16 Nasal Influenza A PCR NOT DETECTED 11/02/23 20:16 Nasal Parainfluen 1 PCR NOT DETECTED 11/02/23 20:16 Nasal Parainfluen 2 PCR NOT DETECTED 11/02/23 20:16 Nasal Parainfluen 3 PCR NOT DETECTED 11/02/23 20:16 Nasal Parainfluen 4 PCR NOT DETECTED 11/02/23 20:16 Nasal RSV (PCR) NOT DETECTED 11/02/23 20:16 Nasal B.pertussis DNA PCR NOT DETECTED 11/02/23 20:16 Nasal C.pneumoniae (PCR) NOT DETECTED 11/02/23 20:16 Srinivas Human Metapneumo PCR NOT DETECTED 11/02/23 20:16 Nasal M.pneumoniae (PCR) NOT DETECTED 11/02/23 20:16 Nasal SARS-CoV-2 (PCR) NOT DETECTED 11/02/23 20:16 Last Dose Date UNK 11/05/23 14:00 Last Dose Time UNK 11/05/23 14:00 Vancomycin Trough 14.9 ug/mL 11/05/23 14:00 Blood Type O POSITIVE 11/03/23 02:30 Blood Type Recheck O POSITIVE 11/02/23 19:30 Antibody Screen NEGATIVE 11/03/23 02:30 Crossmatch IS Only See Detail 11/03/23 02:30
[2023-11-07] MEDS: POTASSIUM CHLORIDE 20 MEQ/15 ML UDC PO SCH (17:05)
[2023-11-07] MEDS: MULTIVITAMIN W/MINERALS TABLET PO SCH (17:05)
[2023-11-07] MEDS: MAGIC MOUTHWASH 120 ML BOTTLE PO SCH (17:15)
[2023-11-07] MEDS: CHLORHEXIDINE GLUCONATE 15 ML UDC PO SCH (21:47)
[2023-11-08 05:36] LABS: HCT - HEMATOCRIT 22.9 % (42.0-52.0); HGB - HEMOGLOBIN 7.3 g/dL (14.0-18.0); LYMPHOCYTES % (AUTO) 26.7 %; MEAN CORPUSCULAR HEMOGLOBIN 24.9 pg (27.0-31.0); MEAN CORPUSCULAR HGB CONC 31.9 g/dL (32.0-36.0); MEAN CORPUSCULAR VOLUME 78.2 fL (80.0-94.0); MONOCYTES % (AUTO) 13.3 %; RED BLOOD COUNT 2.93 10^6/uL (4.70-6.10); RED CELL DISTRIBUTION WIDTH 16.9 % (12.0-15.0)
[2023-11-08 05:58] LABS: CALCIUM 8.3 mg/dL (8.5-10.3); CREATININE 1.2 mg/dL (0.6-1.3); MAGNESIUM 1.4 mg/dL (1.7-2.3); PHOSPHORUS 1.8 mg/dL (2.5-5.0); POTASSIUM 3.4 mmol/L (3.5-4.5)
[2023-11-08 06:03] LABS: PLT - PLATELET COUNT 16 10^3/uL (130-450); WHITE BLOOD COUNT 0.2 x10^3/uL (4.8-10.8)
[2023-11-08 06:04] LABS: ABNORMAL LYMPHS % (MANUAL) 0 %; BAND NEUTROPHILS % (MANUAL) 0 %
[2023-11-08 06:21] LABS: DIFFERENTIAL COMMENT MANUAL DIFFERENTIAL; LYMPHOCYTES # (MANUAL) 0.1 10^3/uL (1.5-3.5); LYMPHOCYTES % (MANUAL) 48 %; NEUTROPHILS # (MANUAL) 0.1 10^3/uL (1.5-6.6); PLATELET ESTIMATE, MANUAL DECREASED (<130,000) (NORMAL)
--- NOTE | 2023-11-08 07:27 | PROVIDER PROGRESS NOTE ---
Assessment/Plan - Problem List (1) Neutropenic fever Assessment/Plan: last Fever episode 38.6C on 11/07/2023 pm persistent neutropenic fever -check blood culture to see if pseudomonas bacterimia cleared, if not, port needs to be removed (2) Pancytopenia Assessment/Plan: Neutropenic precaution Platelet 16 today, no sign of bleeding, give two units of platelets Hb 7.3 today, plans PRBC transfusion tomorrow (3) Bacteremia due to Pseudomonas Assessment/Plan: Blood culture positive on 11/02/2023 specimen On Cefipime discontinue Vanco Repeat blood culture on 11/08/2023 if blood culture still positive, may need to remove the port, escalate antibiotic to Imipeniem (4) Mucositis (ulcerative) due to antineoplastic therapy Assessment/Plan: oral care: 5 times a day, keep mouth clean, no food or beverage between meals Morphine oral rainse solution give albumin nutrition consult Soft diet (6) Hypoalbuminemia Assessment/Plan: poor nutrition status poor oral intake -give albumin iv - Current Meds Current Meds: Current Medications Generic Name Dose Route Start Last Admin Trade Name Freq PRN Reason Stop Dose Admin Acetaminophen 650 mg 11/03/23 01:53 11/07/23 01:44 Acetaminophen 325 Mg Tablet PO 650 mg Q4HR PRN Administration Pain 1 to 4, or Fever Allopurinol 300 mg 11/03/23 09:00 11/07/23 21:44 Allopurinol 100 Mg Tablet PO 300 mg BID [facility] Administration Amlodipine Besylate 5 mg 11/03/23 09:00 11/07/23 08:42 Amlodipine 5 Mg Tablet PO 5 mg DAILY [facility] Administration Brimonidine Tartrate 1 drops 11/03/23 06:00 11/07/23 21:55 Brimonidine 0.2% Ophth Drops 10 Ml EACHEYE 1 drops TID [facility] Administration Chlorhexidine Gluconate 15 ml 11/07/23 21:00 11/07/23 21:47 Chlorhexidine Gluconate 15 Ml Udc PO 15 ml BID [facility] Administration Docusate Sodium 250 - 500 mg 11/03/23 16:00 11/07/23 08:41 Docusate Sodium 250 Mg Capsule PO 250 mg DAILY [facility] Administration Gabapentin 200 mg 11/03/23 21:00 11/07/23 21:44 Gabapentin 100 Mg Capsule PO 200 mg HS [facility] Administration Vancomycin HCl 1 gm/ Sodium 250 mls @ 166.667 mls/hr 11/03/23 14:00 11/08/23 02:00 Chloride IV 167 mls/hr Q12H [facility] Administration Cefepime HCl 2 gm/ Sodium 100 mls @ 200 mls/hr 11/03/23 12:00 11/08/23 04:13 Chloride IV 200 mls/hr Q8H [facility] Administration Multi-Ingredient Mouthwash/Gargle 30 ml 11/07/23 16:00 11/08/23 04:13 Magic Mouthwash 120 Ml Bottle PO 30 ml Q4H [facility] Administration Multi-Ingredient Ointment 1 applic 11/03/23 10:53 11/07/23 09:00 Zinc Oxide 12% Oint 57 Gm Tube TOP 1 applic PRN PRN Administration Skin Care Multivitamins/Minerals 1 tab 11/07/23 17:00 11/07/23 17:05 Multivitamin W/Minerals Tablet PO 1 tab DAILYWM [facility] Administration Olanzapine 2.5 mg 11/03/23 21:00 11/07/23 21:42 Olanzapine Odt 5 Mg Tablet TL 2.5 mg HS [facility] Administration Oxycodone HCl 5 mg 11/03/23 01:53 11/06/23 08:53 Oxycodone 5 Mg Tablet PO 5 mg Q4HR PRN Administration Pain 8 to 10 Phenol/Menthol 2 sprays 11/03/23 10:53 11/08/23 04:13 Phenol Throat [place] 177 Ml MM 2 sprays Q2HR PRN Administration Throat Pain Polyethylene Glycol 17 gm 11/03/23 16:00 11/07/23 08:42 Polyethylene Glycol 3350 17 Gm Packet PO Not Given DAILY [facility] Potassium Chloride 40 meq 11/07/23 16:00 11/07/23 22:40 Potassium Chloride 20 Meq/15 Ml Udc PO 11/08/23 09:01 40 meq BID [facility] Administration Senna 8.6 - 17.2 mg 11/03/23 16:00 11/07/23 08:41 Senna 8.6 Mg Tablet PO 17.2 mg DAILY [facility] Administration Sodium Chloride 10 ml 11/03/23 09:00 11/08/23 01:59 Sodium Chloride Flush 0.9% 10 Ml Syringe IVP 10 ml 0100,0900,1700 [facility] Administration Tamsulosin HCl 0.4 mg 11/03/23 21:00 11/07/23 21:44 Tamsulosin 0.4 Mg Capsule PO 0.4 mg HS [facility] Administration Throat Lozenges 1 lozenge 11/03/23 10:53 11/08/23 04:13 Benzocaine/Menthol Lozenge MM 1 lozenge Q2HR PRN Administration Throat pain - Lab Result Fish Bone Diagrams: 11/08/23 05:05 11/08/23 05:05 - Diagnostic Imaging Results Diagnostic Imaging Results: Final report reviewed - Additional Planning Condition/Complexity: Guarded Plan Discussed with:: Patient Time Spent: 31-60 minutes Subjective - Subjective Patient Reports: Other (With 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 mechanic 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 round patient conplaints of mouth pain, it is severe, can not eat much food) Objective Vital Signs: Vital Signs - 24 hr 11/07/23 11/07/23 11/07/23 08:00 15:42 15:53 Temperature 37.2 C 38.6 C H 37.6 C Heart Rate [ 103 H Brachial] Heart Rate [ 107 H Monitoring electrodes] Respiratory 18 22 Rate Blood Pressure 151/76 H 133/61 H [Right Brachial artery] O2 Saturation 99 96 11/07/23 11/07/23 21:40 23:35 Temperature 37.5 C 37.1 C Heart Rate [ 105 H Brachial] Heart Rate [ Monitoring electrodes] Respiratory 20 Rate Blood Pressure 163/77 H [Right Brachial artery] O2 Saturation 98 Oxygen O2 Source Room air I&O (Last 24 Hrs): Intake and Output Totals x24h 11/06/23 11/07/23 11/08/23 23:59 23:59 23:59 Intake Total 2686 1440 Output Total 300 Balance 2686 1140 - Results Results: Laboratory Results WBC 0.2 x10^3/uL (4.8-10.8) L* 11/08/23 05:05 RBC 2.93 10^6/uL (4.70-6.10) L 11/08/23 05:05 Hgb 7.3 g/dL (14.0-18.0) L 11/08/23 05:05 Hct 22.9 % (42.0-52.0) L 11/08/23 05:05 MCV 78.2 fL (80.0-94.0) L 11/08/23 05:05 MCH 24.9 pg (27.0-31.0) L 11/08/23 05:05 MCHC 31.9 g/dL (32.0-36.0) L 11/08/23 05:05 RDW 16.9 % (12.0-15.0) H 11/08/23 05:05 Plt Count 16 10^3/uL (130-450) L* 11/08/23 05:05 MPV 9.6 fL (7.4-11.4) 11/07/23 04:45 Neut # (Auto) Not Reportable 11/08/23 05:05 Lymph # (Auto) Not Reportable 11/08/23 05:05 [place] # (Auto) Not Reportable 11/08/23 05:05 Eos # (Auto) Not Reportable 11/08/23 05:05 Baso # (Auto) Not Reportable 11/08/23 05:05 Absolute Nucleated RBC Not Reportable 11/08/23 05:05 Total Counted 25 11/08/23 05:05 Band Neuts % (Manual) 0 % (0-10) 11/08/23 05:05 Abnorm Lymph % (Manual) 0 % 11/08/23 05:05 Nucleated RBC % Not Reportable 11/08/23 05:05 Neutrophils # (Manual) 0.1 10^3/uL (1.5-6.6) L* 11/08/23 05:05 Lymphocytes # (Manual) 0.1 10^3/uL (1.5-3.5) L 11/08/23 05:05 Monocytes # (Manual) 0.0 10^3/uL (0.0-1.0) 11/08/23 05:05 Eosinophils # (Manual) 0.0 10^3/uL (0-0.7) 11/08/23 05:05 Basophils # (Manual) 0.0 10^3/uL (0-0.1) 11/08/23 05:05 Differential Comment MANUAL DIFFERENTIAL 11/08/23 05:05 Manual Slide Review Indicated 11/07/23 04:45 WBC Morphology (NORMAL) 11/07/23 04:45 Platelet Estimate DECREASED (<130,000) (NORMAL) 11/08/23 05:05 Platelet Morphology NORMAL APPEARANCE (NORMAL) 11/07/23 04:45 RBC Morph Micro Appear 2+ MICROCYTOSIS (NORMAL) 2+ HYPOCHROMASIA (NORMAL) 11/08/23 05:05 RBC Morph Micro Appear 2+ MICROCYTOSIS (NORMAL) 2+ HYPOCHROMASIA (NORMAL) 11/08/23 05:05 Sodium 137 mmol/L (135-145) 11/08/23 05:05 Potassium 3.4 mmol/L (3.5-4.5) L 11/08/23 05:05 Chloride 106 mmol/L (101-111) 11/08/23 05:05 Carbon Dioxide 25 mmol/L (21-32) 11/08/23 05:05 Anion Gap 6.0 (6-13) 11/08/23 05:05 BUN 21 mg/dL (6-20) H 11/08/23 05:05 Creatinine 1.2 mg/dL (0.6-1.3) 11/08/23 05:05 Estimated GFR (MDRD) 60 (>89) L 11/08/23 05:05 Glucose 136 mg/dL (74-104) H 11/08/23 05:05 Lactic Acid 3.0 mmol/L (0.5-2.2) H* 11/02/23 20:36 Calcium 8.3 mg/dL (8.5-10.3) L 11/08/23 05:05 Phosphorus 1.8 mg/dL (2.5-5.0) L 11/08/23 05:05 Magnesium 1.4 mg/dL (1.7-2.3) L 11/08/23 05:05 Total Bilirubin 1.4 mg/dL (0.2-1.0) H 11/07/23 04:45 AST 35 IU/L (10-42) 11/07/23 04:45 ALT 41 IU/L (10-60) 11/07/23 04:45 Alkaline Phosphatase 215 IU/L (42-121) H 11/07/23 04:45 Total Protein 4.3 g/dL (6.4-8.9) L 11/07/23 04:45 Albumin 2.3 g/dL (3.2-5.5) L 11/07/23 04:45 Globulin 2.0 g/dL (2.1-4.2) L 11/07/23 04:45 Albumin/Globulin Ratio 1.2 (1.0-2.2) 11/07/23 04:45 Lipase < 10 U/L (11-82) L 11/02/23 18:50 Urine Color DARK YELLOW 11/02/23 19:30 Urine Clarity HAZY (CLEAR) 11/02/23 19:30 Urine pH 6.0 PH (5.0-7.5) 11/02/23 19:30 Ur Specific [place] 1.020 (1.002-1.030) 11/02/23 19:30 Urine Protein 100 mg/dL (NEGATIVE) H 11/02/23 19:30 Urine Glucose (UA) NEGATIVE mg/dL (NEGATIVE) 11/02/23 19:30 Urine Ketones NEGATIVE mg/dL (NEGATIVE) 11/02/23 19:30 Urine Occult Blood LARGE (NEGATIVE) H 11/02/23 19:30 Urine Nitrite NEGATIVE (NEGATIVE) 11/02/23 19:30 Urine Bilirubin NEGATIVE (NEGATIVE) 11/02/23 19:30 Urine Urobilinogen 1 (NORMAL) E.U./dL (NORMAL) 11/02/23 19:30 Ur Leukocyte Esterase SMALL (NEGATIVE) H 11/02/23 19:30 Urine RBC 11-25 /HPF (0-5) H 11/02/23 19:30 Urine WBC 11-25 /HPF (0-3) H 11/02/23 19:30 Ur Squamous Epith Cells NONE SEEN (<= Few) 11/02/23 19:30 Urine Bacteria Few /HPF (None Seen) 11/02/23 19:30 Urine Yeast PRESENT 11/02/23 19:30 Ur Microscopic Review INDICATED 11/02/23 19:30 Urine Culture Comments INDICATED 11/02/23 19:30 Nasal Adenovirus (PCR) NOT DETECTED 11/02/23 20:16 Nasal B. parapertussis DNA (PCR) NOT DETECTED 11/02/23 20:16 Nasal Coronavir 229E PCR NOT DETECTED 11/02/23 20:16 Nasal Coronavir HKU1 PCR NOT DETECTED 11/02/23 20:16 Nasal Coronavir NL63 PCR NOT DETECTED 11/02/23 20:16 Nasal Coronavir OC43 PCR NOT DETECTED 11/02/23 20:16 Nasal Enterovir/Rhinovir PCR NOT DETECTED 11/02/23 20:16 Nasal Influenza B PCR NOT DETECTED 11/02/23 20:16 Nasal Influenza A PCR NOT DETECTED 11/02/23 20:16 Nasal Parainfluen 1 PCR NOT DETECTED 11/02/23 20:16 Nasal Parainfluen 2 PCR NOT DETECTED 11/02/23 20:16 Nasal Parainfluen 3 PCR NOT DETECTED 11/02/23 20:16 Nasal Parainfluen 4 PCR NOT DETECTED 11/02/23 20:16 Nasal RSV (PCR) NOT DETECTED 11/02/23 20:16 Nasal B.pertussis DNA PCR NOT DETECTED 11/02/23 20:16 Nasal C.pneumoniae (PCR) NOT DETECTED 11/02/23 20:16 Srinivas Human Metapneumo PCR NOT DETECTED 11/02/23 20:16 Nasal M.pneumoniae (PCR) NOT DETECTED 11/02/23 20:16 Nasal SARS-CoV-2 (PCR) NOT DETECTED 11/02/23 20:16 Last Dose Date UNK 11/05/23 14:00 Last Dose Time UNK 11/05/23 14:00 Vancomycin Trough 14.9 ug/mL 11/05/23 14:00 Blood Type O POSITIVE 11/03/23 02:30 Blood Type Recheck O POSITIVE 11/02/23 19:30 Antibody Screen NEGATIVE 11/03/23 02:30 Crossmatch IS Only See Detail 11/03/23 02:30
[2023-11-08] MEDS: POTASSIUM CHLORIDE 20 MEQ TABLET PO ONE (09:11)
[2023-11-08] MEDS: MAGNESIUM SULFATE 2 GRAM 2 GM/50 ML BAG IV ONE (12:41)
[2023-11-08] MEDS: POTASSIUM PHOSPHATE 21 MMOL in SODIUM CHLORIDE 0.9% 250 ML IV ONE (13:26)
[2023-11-08] MEDS: ALBUMIN 25% 12.5 GM/50 ML VIAL IV STA (14:00)
[2023-11-08] MEDS ORDERED: LABETALOL 20 MG/4 ML SYRINGE IVP PRN (17:21)
[2023-11-08] MEDS: amLODIPine 5 MG TABLET PO SCH (17:36)
[2023-11-08] MEDS: MORPHINE SOL 10 MG/0.5 ML ORAL SYRINGE PO PRN (20:06)
[2023-11-08] MEDS: SODIUM CHLORIDE 0.45% 1,000 ML IV SCH (20:07)
[2023-11-08] MEDS: BRIMONIDINE 0.2% OPHTH DROPS 5 ML EACHEYE SCH (22:06)
[2023-11-09 05:24] LABS: MEAN CORPUSCULAR HEMOGLOBIN 24.2 pg (27.0-31.0); MEAN CORPUSCULAR HGB CONC 30.8 g/dL (32.0-36.0); MEAN CORPUSCULAR VOLUME 78.4 fL (80.0-94.0); MEAN PLATELET VOLUME 10.8 fL (7.4-11.4); PLT - PLATELET COUNT 42 10^3/uL (130-450); RED BLOOD COUNT 2.69 10^6/uL (4.70-6.10); RED CELL DISTRIBUTION WIDTH 17.4 % (12.0-15.0)
[2023-11-09 05:40] LABS: CALCIUM 8.1 mg/dL (8.5-10.3); CREATININE 1.4 mg/dL (0.6-1.3); POTASSIUM 3.7 mmol/L (3.5-4.5)
[2023-11-09 05:44] LABS: HCT - HEMATOCRIT 21.9 % (42.0-52.0); WHITE BLOOD COUNT 0.2 x10^3/uL (4.8-10.8)
[2023-11-09 05:45] LABS: HGB - HEMOGLOBIN 6.7 g/dL (14.0-18.0)
[2023-11-09 05:46] LABS: ABNORMAL LYMPHS % (MANUAL) 0 %; BAND NEUTROPHILS % (MANUAL) 0 %
[2023-11-09 05:56] LABS: DIFFERENTIAL COMMENT MANUAL DIFFERENTIAL; LYMPHOCYTES # (MANUAL) 0.1 10^3/uL (1.5-3.5); LYMPHOCYTES % (MANUAL) 36 %; NEUTROPHILS # (MANUAL) 0.1 10^3/uL (1.5-6.6); PLATELET ESTIMATE, MANUAL DECREASED (<130,000) (NORMAL)
--- NOTE | 2023-11-09 07:30 | PROVIDER PROGRESS NOTE ---
Assessment/Plan - Problem List (1) Neutropenic fever Assessment/Plan: Remain neutropenic status Low grade fever episode -initiate higher level care transfer, patient will be benefiet with direct, close management from Oncology and ID services patient and SO agree with the transfer [facility] were called to initiate transfer (2) Pancytopenia Assessment/Plan: Neutropenia, persistent (needs Oncology input), called Dr Karis Peralta ([phone]) office, await for further instruction Anemia, worsening with Hb 6.7, give two units of PRBC Thrombocytopenia, improved to 47 after two units of platelets transfusion on 11/08/2023 --continue monitoring and give support (3) Bacteremia due to Pseudomonas Assessment/Plan: esclate antibiotic to [place] on 11/09/2023 await for repeat blood culture collected on 11/08/2023 (5) Hypoalbuminemia due to protein-calorie malnutrition Assessment/Plan: nutrition support (6) Hypoalbuminemia Assessment/Plan: Received Albumin iv on 11/08/2023 encourage oral intake - Current Meds Current Meds: Current Medications Generic Name Dose Route Start Last Admin Trade Name Freq PRN Reason Stop Dose Admin Acetaminophen 650 mg 11/03/23 01:53 11/08/23 16:46 Acetaminophen 325 Mg Tablet PO 650 mg Q4HR PRN Administration Pain 1 to 4, or Fever Allopurinol 300 mg 11/03/23 09:00 11/08/23 20:31 Allopurinol 100 Mg Tablet PO 300 mg BID [facility] Administration Amlodipine Besylate 5 mg 11/08/23 18:00 11/08/23 20:31 Amlodipine 5 Mg Tablet PO 5 mg BID [facility] Administration Brimonidine Tartrate 1 drops 11/08/23 22:00 11/09/23 06:02 Brimonidine 0.2% Ophth Drops 5 Ml EACHEYE 1 drops TID [facility] Administration Chlorhexidine Gluconate 15 ml 11/07/23 21:00 11/08/23 20:31 Chlorhexidine Gluconate 15 Ml Udc PO 15 ml BID [facility] Administration Docusate Sodium 250 - 500 mg 11/03/23 16:00 11/08/23 09:11 Docusate Sodium 250 Mg Capsule PO 250 mg DAILY [facility] Administration Gabapentin 200 mg 11/03/23 21:00 11/08/23 20:31 Gabapentin 100 Mg Capsule PO 200 mg HS [facility] Administration Cefepime HCl 2 gm/ Sodium 100 mls @ 200 mls/hr 11/03/23 12:00 11/09/23 04:16 Chloride IV Infused Q8H [facility] Infusion Sodium Chloride 1,000 mls @ 83.333 mls/hr 11/08/23 20:00 11/09/23 04:16 Normal Saline 0.45% IV 83.333 mls/hr .Q12H [facility] Infusion Morphine Sulfate 10 mg 11/08/23 11:53 11/08/23 20:06 Morphine [place] 10 Mg/0.5 Ml Oral Syringe PO 10 mg Q4HR PRN Administration Moderate Pain (Level 4-6) Multi-Ingredient Mouthwash/Gargle 30 ml 11/07/23 16:00 11/09/23 03:41 Magic Mouthwash 120 Ml Bottle PO Not Given Q4H [facility] Multi-Ingredient Ointment 1 applic 11/03/23 10:53 11/07/23 09:00 Zinc Oxide 12% Oint 57 Gm Tube TOP 1 applic PRN PRN Administration Skin Care Multivitamins/Minerals 1 tab 11/07/23 17:00 11/08/23 09:11 Multivitamin W/Minerals Tablet PO 1 tab DAILYWM [facility] Administration Olanzapine 2.5 mg 11/03/23 21:00 11/08/23 20:32 Olanzapine Odt 5 Mg Tablet TL 2.5 mg HS [facility] Administration Oxycodone HCl 5 mg 11/03/23 01:53 11/08/23 20:32 Oxycodone 5 Mg Tablet PO 5 mg Q4HR PRN Administration Pain 8 to 10 Phenol/Menthol 2 sprays 11/03/23 10:53 11/08/23 18:03 Phenol Throat [place] 177 Ml MM 2 sprays Q2HR PRN Administration Throat Pain Polyethylene Glycol 17 gm 11/03/23 16:00 11/08/23 09:11 Polyethylene Glycol 3350 17 Gm Packet PO 17 gm DAILY [facility] Administration Senna 8.6 - 17.2 mg 11/03/23 16:00 11/08/23 09:11 Senna 8.6 Mg Tablet PO 17.2 mg DAILY [facility] Administration Sodium Chloride 10 ml 11/03/23 09:00 11/08/23 23:50 Sodium Chloride Flush 0.9% 10 Ml Syringe IVP Not Given 0100,0900,1700 [facility] Tamsulosin HCl 0.4 mg 11/03/23 21:00 11/08/23 20:31 Tamsulosin 0.4 Mg Capsule PO 0.4 mg HS [facility] Administration Throat Lozenges 1 lozenge 11/03/23 10:53 11/08/23 09:12 Benzocaine/Menthol Lozenge MM 1 lozenge Q2HR PRN Administration Throat pain - Lab Result Fish Bone Diagrams: 11/09/23 04:45 11/09/23 04:45 - Additional Planning My Orders: My Active Orders 11/08/23 07:48 Blood Culture [CULTURE, BLOOD #1] [] Routine 11/08/23 08:23 Blood Culture [CULTURE, BLOOD #2] [] Routine 11/08/23 11:38 Oral Care - Nursing [RC] 5XD 11/08/23 11:53 Morphine Oral Soln [Roxanol] 10 mg PO Q4HR PRN 11/08/23 17:21 Labetalol Syringe [Trandate Syringe] 20 mg IVP Q6H PRN 11/08/23 18:00 amLODIPine [Norvasc] 5 mg PO BID 11/08/23 20:00 Sodium Chloride 0.45% [Normal Saline 0.45%] 1,000 ml IV 83.333 mls/hr 11/09/23 RBC, LEUKOREDUCED Routine 11/09/23 07:24 Transfuse RBCs Leukoreduced [RC] .ONCE 11/09/23 09:00 Calcium Carbonate [Tums] 500 mg PO BID Subjective - Subjective Patient Reports: Other (feels same, had fever of 38.5T in the morning) Objective Vital Signs: Vital Signs - 24 hr 11/08/23 11/08/23 11/08/23 08:00 15:52 16:47 Temperature 37.2 C 37.3 C 37.5 C Heart Rate [ 108 H Brachial] Heart Rate [ 103 H 117 H Monitoring electrodes] Respiratory 18 18 12 Rate Blood Pressure 156/75 H 151/77 H 161/90 H [Right Brachial artery] O2 Saturation 96 97 98 11/08/23 11/08/23 11/08/23 17:03 17:05 17:27 Temperature 37.0 C 37.0 C 37.4 C Heart Rate [ 98 116 H Brachial] Heart Rate [ 109 H Monitoring electrodes] Respiratory 18 18 12 Rate Blood Pressure 192/75 H 192/75 H 141/63 H [Right Brachial artery] O2 Saturation 97 98 96 11/08/23 11/08/23 11/08/23 17:28 17:45 17:48 Temperature 37.4 C 38.3 C H 38.3 C H Heart Rate [ 107 H 107 H Brachial] Heart Rate [ 109 H Monitoring electrodes] Respiratory 12 18 18 Rate Blood Pressure 141/63 H 147/62 H 137/59 H [Right Brachial artery] O2 Saturation 98 97 96 11/08/23 23:58 Temperature 36.7 C Heart Rate [ 118 H Brachial] Heart Rate [ Monitoring electrodes] Respiratory 18 Rate Blood Pressure 149/80 H [Right Brachial artery] O2 Saturation 98 Oxygen O2 Source Room air I&O (Last 24 Hrs): Intake and Output Totals x24h 11/07/23 11/08/23 11/09/23 23:59 23:59 23:59 Intake Total 1440 2250 737.497 Output Total 300 525 Balance 1140 2250 212.497 General: Oriented x3, Cooperative HEENT: PERRLA, EOMI Neck: Supple, No JVD Neuro: Alert, Non Focal Respiratory: Chest non-tender Abdomen: Normal bowel sounds Extremities: No cyanosis, No edema - Results Results: Laboratory Results WBC 0.2 x10^3/uL (4.8-10.8) L* 11/09/23 04:45 RBC 2.69 10^6/uL (4.70-6.10) L 11/09/23 04:45 Hgb 6.7 g/dL (14.0-18.0) L* 11/09/23 04:45 Hct 21.9 % (42.0-52.0) L 11/09/23 04:45 MCV 78.4 fL (80.0-94.0) L 11/09/23 04:45 MCH 24.2 pg (27.0-31.0) L 11/09/23 04:45 MCHC 30.8 g/dL (32.0-36.0) L 11/09/23 04:45 RDW 17.4 % (12.0-15.0) H 11/09/23 04:45 Plt Count 42 10^3/uL (130-450) L 11/09/23 04:45 MPV 10.8 fL (7.4-11.4) 11/09/23 04:45 Neut # (Auto) Not Reportable 11/09/23 04:45 Lymph # (Auto) Not Reportable 11/09/23 04:45 [place] # (Auto) Not Reportable 11/09/23 04:45 Eos # (Auto) Not Reportable 11/09/23 04:45 Baso # (Auto) Not Reportable 11/09/23 04:45 Absolute Nucleated RBC Not Reportable 11/09/23 04:45 Total Counted 25 11/09/23 04:45 Band Neuts % (Manual) 0 % (0-10) 11/09/23 04:45 Abnorm Lymph % (Manual) 0 % 11/09/23 04:45 Nucleated RBC % Not Reportable 11/09/23 04:45 Neutrophils # (Manual) 0.1 10^3/uL (1.5-6.6) L* 11/09/23 04:45 Lymphocytes # (Manual) 0.1 10^3/uL (1.5-3.5) L 11/09/23 04:45 Monocytes # (Manual) 0.0 10^3/uL (0.0-1.0) 11/09/23 04:45 Eosinophils # (Manual) 0.0 10^3/uL (0-0.7) 11/09/23 04:45 Basophils # (Manual) 0.0 10^3/uL (0-0.1) 11/09/23 04:45 Differential Comment MANUAL DIFFERENTIAL 11/09/23 04:45 Manual Slide Review Indicated 11/07/23 04:45 WBC Morphology (NORMAL) 11/07/23 04:45 Platelet Estimate DECREASED (<130,000) (NORMAL) 11/09/23 04:45 Platelet Morphology NORMAL APPEARANCE (NORMAL) 11/07/23 04:45 RBC Morph Micro Appear 2+ HYPOCHROMASIA (NORMAL) 1+ MICROCYTOSIS (NORMAL) 11/09/23 04:45 RBC Morph Micro Appear 2+ HYPOCHROMASIA (NORMAL) 1+ MICROCYTOSIS (NORMAL) 11/09/23 04:45 Sodium 136 mmol/L (135-145) 11/09/23 04:45 Potassium 3.7 mmol/L (3.5-4.5) 11/09/23 04:45 Chloride 105 mmol/L (101-111) 11/09/23 04:45 Carbon Dioxide 24 mmol/L (21-32) 11/09/23 04:45 Anion Gap 7.0 (6-13) 11/09/23 04:45 BUN 27 mg/dL (6-20) H 11/09/23 04:45 Creatinine 1.4 mg/dL (0.6-1.3) H 11/09/23 04:45 Estimated GFR (MDRD) 50 (>89) L 11/09/23 04:45 Glucose 117 mg/dL (74-104) H 11/09/23 04:45 Lactic Acid 3.0 mmol/L (0.5-2.2) H* 11/02/23 20:36 Calcium 8.1 mg/dL (8.5-10.3) L 11/09/23 04:45 Phosphorus 1.8 mg/dL (2.5-5.0) L 11/08/23 05:05 Magnesium 1.4 mg/dL (1.7-2.3) L 11/08/23 05:05 Total Bilirubin 1.4 mg/dL (0.2-1.0) H 11/07/23 04:45 AST 35 IU/L (10-42) 11/07/23 04:45 ALT 41 IU/L (10-60) 11/07/23 04:45 Alkaline Phosphatase 215 IU/L (42-121) H 11/07/23 04:45 Total Protein 4.3 g/dL (6.4-8.9) L 11/07/23 04:45 Albumin 2.3 g/dL (3.2-5.5) L 11/07/23 04:45 Globulin 2.0 g/dL (2.1-4.2) L 11/07/23 04:45 Albumin/Globulin Ratio 1.2 (1.0-2.2) 11/07/23 04:45 Lipase < 10 U/L (11-82) L 11/02/23 18:50 Urine Color DARK YELLOW 11/02/23 19:30 Urine Clarity HAZY (CLEAR) 11/02/23 19:30 Urine pH 6.0 PH (5.0-7.5) 11/02/23 19:30 Ur Specific [place] 1.020 (1.002-1.030) 11/02/23 19:30 Urine Protein 100 mg/dL (NEGATIVE) H 11/02/23 19:30 Urine Glucose (UA) NEGATIVE mg/dL (NEGATIVE) 11/02/23 19:30 Urine Ketones NEGATIVE mg/dL (NEGATIVE) 11/02/23 19:30 Urine Occult Blood LARGE (NEGATIVE) H 11/02/23 19:30 Urine Nitrite NEGATIVE (NEGATIVE) 11/02/23 19:30 Urine Bilirubin NEGATIVE (NEGATIVE) 11/02/23 19:30 Urine Urobilinogen 1 (NORMAL) E.U./dL (NORMAL) 11/02/23 19:30 Ur Leukocyte Esterase SMALL (NEGATIVE) H 11/02/23 19:30 Urine RBC 11-25 /HPF (0-5) H 11/02/23 19:30 Urine WBC 11-25 /HPF (0-3) H 11/02/23 19:30 Ur Squamous Epith Cells NONE SEEN (<= Few) 11/02/23 19:30 Urine Bacteria Few /HPF (None Seen) 11/02/23 19:30 Urine Yeast PRESENT 11/02/23 19:30 Ur Microscopic Review INDICATED 11/02/23 19:30 Urine Culture Comments INDICATED 11/02/23 19:30 Nasal Adenovirus (PCR) NOT DETECTED 11/02/23 20:16 Nasal B. parapertussis DNA (PCR) NOT DETECTED 11/02/23 20:16 Nasal Coronavir 229E PCR NOT DETECTED 11/02/23 20:16 Nasal Coronavir HKU1 PCR NOT DETECTED 11/02/23 20:16 Nasal Coronavir NL63 PCR NOT DETECTED 11/02/23 20:16 Nasal Coronavir OC43 PCR NOT DETECTED 11/02/23 20:16 Nasal Enterovir/Rhinovir PCR NOT DETECTED 11/02/23 20:16 Nasal Influenza B PCR NOT DETECTED 11/02/23 20:16 Nasal Influenza A PCR NOT DETECTED 11/02/23 20:16 Nasal Parainfluen 1 PCR NOT DETECTED 11/02/23 20:16 Nasal Parainfluen 2 PCR NOT DETECTED 11/02/23 20:16 Nasal Parainfluen 3 PCR NOT DETECTED 11/02/23 20:16 Nasal Parainfluen 4 PCR NOT DETECTED 11/02/23 20:16 Nasal RSV (PCR) NOT DETECTED 11/02/23 20:16 Nasal B.pertussis DNA PCR NOT DETECTED 11/02/23 20:16 Nasal C.pneumoniae (PCR) NOT DETECTED 11/02/23 20:16 Srinivas Human Metapneumo PCR NOT DETECTED 11/02/23 20:16 Nasal M.pneumoniae (PCR) NOT DETECTED 11/02/23 20:16 Nasal SARS-CoV-2 (PCR) NOT DETECTED 11/02/23 20:16 Last Dose Date UNK 11/05/23 14:00 Last Dose Time K 11/05/23 14:00 Vancomycin Trough 14.9 ug/mL 11/05/23 14:00 Blood Type O POSITIVE 11/08/23 12:09 Blood Type Recheck O POSITIVE 11/02/23 19:30 Antibody Screen NEGATIVE 11/08/23 12:09 Crossmatch IS Only See Detail 11/03/23 02:30 ABX Reporting Has patient been on IV antibiotics over the past 48 hours?: Yes
[2023-11-09] MEDS: CALCIUM CARBONATE CHEW 500 MG TABLET PO SCH (08:18)
[2023-11-09 09:24] LABS: MAGNESIUM 1.7 mg/dL (1.7-2.3); PHOSPHORUS 2.9 mg/dL (2.5-5.0)
[2023-11-09] MEDS: MEROPENEM 1 GM in SODIUM CHLORIDE 0.9% MINIBAG 100 ML IV SCH (13:11)
[2023-11-09 20:16] LABS: HCT - HEMATOCRIT 25.9 % (42.0-52.0); HGB - HEMOGLOBIN 8.4 g/dL (14.0-18.0); LYMPHOCYTES % (AUTO) 16.7 %; MEAN CORPUSCULAR HEMOGLOBIN 25.4 pg (27.0-31.0); MEAN CORPUSCULAR HGB CONC 32.4 g/dL (32.0-36.0); MEAN CORPUSCULAR VOLUME 78.2 fL (80.0-94.0); MEAN PLATELET VOLUME 10.3 fL (7.4-11.4); MONOCYTES % (AUTO) 12.5 %; NEUTROPHILS % (AUTO) 54.1 %; PLT - PLATELET COUNT 37 10^3/uL (130-450); RED BLOOD COUNT 3.31 10^6/uL (4.70-6.10); RED CELL DISTRIBUTION WIDTH 17.2 % (12.0-15.0)
[2023-11-09 20:28] LABS: NEUTROPHILS # (AUTO) 0.1 10^3/uL (1.5-6.6); SLIDE REVIEW? Indicated; WHITE BLOOD COUNT 0.2 x10^3/uL (4.8-10.8)
[2023-11-09 20:41] LABS: ALBUMIN 2.4 g/dL (3.2-5.5); ALKALINE PHOSPHATASE 274 IU/L (42-121); ALT ALANINE AMINOTRANSFERASE 62 IU/L (10-60); AST ASPARTATE AMINOTRANSFERASE 63 IU/L (10-42); BUN - BLOOD UREA NITROGEN 29 mg/dL (6-20); CALCIUM 7.9 mg/dL (8.5-10.3); CARBON DIOXIDE - CO2 25 mmol/L (21-32); CHLORIDE 104 mmol/L (101-111); CREATININE 1.5 mg/dL (0.6-1.3); GFR - MDRD 47 (>89); GLUCOSE 114 mg/dL (74-104); POTASSIUM 3.6 mmol/L (3.5-4.5); SODIUM 134 mmol/L (135-145); TOTAL PROTEIN 4.8 g/dL (6.4-8.9); URIC ACID < 1.5 mg/dL (4.4-7.6)
[2023-11-09 20:58] LABS: DIFFERENTIAL COMMENT MANUAL=AUTO DIFF; PLATELET ESTIMATE, MANUAL DECREASED (<130,000) (NORMAL); PLATELET MORPHOLOGY NORMAL APPEARANCE (NORMAL)
[2023-11-10 04:53] LABS: HCT - HEMATOCRIT 26.1 % (42.0-52.0); HGB - HEMOGLOBIN 8.6 g/dL (14.0-18.0); LYMPHOCYTES % (AUTO) 15.4 %; MEAN CORPUSCULAR HEMOGLOBIN 25.7 pg (27.0-31.0); MEAN CORPUSCULAR VOLUME 77.9 fL (80.0-94.0); MONOCYTES % (AUTO) 15.4 %; NEUTROPHILS % (AUTO) 46.1 %; RED BLOOD COUNT 3.35 10^6/uL (4.70-6.10); RED CELL DISTRIBUTION WIDTH 17.4 % (12.0-15.0)
[2023-11-10 05:06] LABS: WHITE BLOOD COUNT 0.3 x10^3/uL (4.8-10.8)
[2023-11-10 05:07] LABS: PLT - PLATELET COUNT 32 10^3/uL (130-450)
[2023-11-10 05:08] LABS: ABNORMAL LYMPHS % (MANUAL) 0 %
[2023-11-10 05:12] LABS: CALCIUM 8.1 mg/dL (8.5-10.3); CREATININE 1.5 mg/dL (0.6-1.3); POTASSIUM 3.5 mmol/L (3.5-4.5)
[2023-11-10 05:28] LABS: BAND NEUTROPHILS % (MANUAL) 8 %; LYMPHOCYTES # (MANUAL) 0.1 10^3/uL (1.5-3.5); LYMPHOCYTES % (MANUAL) 24 %; NEUTROPHILS # (MANUAL) 0.2 10^3/uL (1.5-6.6); PLATELET ESTIMATE, MANUAL DECREASED (<130,000) (NORMAL)
[2023-11-10 05:29] LABS: DIFFERENTIAL COMMENT MANUAL DIFFERENTIAL
--- NOTE | 2023-11-10 07:36 | PROVIDER PROGRESS NOTE ---
Assessment/Plan - Problem List (2) Pancytopenia Assessment/Plan: WBC 0.2, no change Hb 8.3, stable post two units PRBC transfusion on 11/09/2023 Platelet 32, trends down, will transfuse if <30 (3) Bacteremia due to Pseudomonas Assessment/Plan: Repeat blood culture collected on 11/08/2023 NGTD -Continue merepenum (4) Mucositis (ulcerative) due to antineoplastic therapy Assessment/Plan: persist continue oral care Salin mouth rinse Full liquid diet only Viscous lidocaine artificial saliva (5) Hypoalbuminemia due to protein-calorie malnutrition Assessment/Plan: Poor nutriton status, continue treat chemo induced mucositis give protein boost - Current Meds Current Meds: Current Medications Generic Name Dose Route Start Last Admin Trade Name Freq PRN Reason Stop Dose Admin Acetaminophen 650 mg 11/03/23 01:53 11/10/23 03:53 Acetaminophen 325 Mg Tablet PO 650 mg Q4HR PRN Administration Pain 1 to 4, or Fever Allopurinol 300 mg 11/03/23 09:00 11/09/23 20:59 Allopurinol 100 Mg Tablet PO 300 mg BID [facility] Administration Amlodipine Besylate 5 mg 11/08/23 18:00 11/09/23 21:01 Amlodipine 5 Mg Tablet PO 5 mg BID SATNFORD Administration Brimonidine Tartrate 1 drops 11/08/23 22:00 11/10/23 06:20 Brimonidine 0.2% Ophth Drops 5 Ml EACHEYE 1 drops TID [facility]ORD Administration Calcium Carbonate/Glycine 500 mg 11/09/23 09:00 11/09/23 21:00 Calcium Carbonate Chew 500 Mg Tablet PO 500 mg BID ST[facility] Administration Chlorhexidine Gluconate 15 ml 11/07/23 21:00 11/09/23 21:17 Chlorhexidine Gluconate 15 Ml Udc PO 15 ml BID ST[facility] Administration Docusate Sodium 250 - 500 mg 11/03/23 16:00 11/09/23 08:18 Docusate Sodium 250 Mg Capsule PO 250 mg DAILY ST[facility] Administration Gabapentin 200 mg 11/03/23 21:00 11/09/23 21:04 Gabapentin 100 Mg Capsule PO 200 mg HS ST[facility] Administration Sodium Chloride 1,000 mls @ 83.333 mls/hr 11/08/23 20:00 11/10/23 00:10 Normal Saline 0.45% IV 83.333 mls/hr .Q12H [facility] Administration Meropenem 1 gm/ Sodium 100 mls @ 200 mls/hr 11/09/23 12:00 11/10/23 04:30 Chloride IV Infused Q8H [facility] Infusion Morphine Sulfate 10 mg 11/08/23 11:53 11/09/23 14:27 Morphine Darcy 10 Mg/0.5 Ml Oral Syringe PO 10 mg Q4HR PRN Administration Moderate Pain (Level 4-6) Multi-Ingredient Mouthwash/Gargle 30 ml 11/07/23 16:00 11/10/23 03:51 Magic Mouthwash 120 Ml Bottle PO 30 ml Q4H [facility] Administration Multi-Ingredient Ointment 1 applic 11/03/23 10:53 11/07/23 09:00 Zinc Oxide 12% Oint 57 Gm Tube TOP 1 applic PRN PRN Administration Skin Care Multivitamins/Minerals 1 tab 11/07/23 17:00 11/09/23 08:18 Multivitamin W/Minerals Tablet PO 1 tab DAILYWM [facility] Administration Olanzapine 2.5 mg 11/03/23 21:00 11/09/23 21:16 Olanzapine Odt 5 Mg Tablet TL Not Given HS [facility] Oxycodone HCl 5 mg 11/03/23 01:53 11/09/23 15:38 Oxycodone 5 Mg Tablet PO 5 mg Q4HR PRN Administration Pain 8 to 10 Phenol/Menthol 2 sprays 11/03/23 10:53 11/09/23 14:32 Phenol Throat [place] 177 Ml MM 2 sprays Q2HR PRN Administration Throat Pain Polyethylene Glycol 17 gm 11/03/23 16:00 11/09/23 08:18 Polyethylene Glycol 3350 17 Gm Packet PO 17 gm DAILY [facility] Administration Senna 8.6 - 17.2 mg 11/03/23 16:00 11/09/23 08:18 Senna 8.6 Mg Tablet PO 8.6 mg DAILY [facility] Administration Sodium Chloride 10 ml 11/03/23 09:00 11/10/23 00:10 Sodium Chloride Flush 0.9% 10 Ml Syringe IVP 10 ml 0100,0900,1700 [facility] Administration Tamsulosin HCl 0.4 mg 11/03/23 21:00 11/09/23 21:00 Tamsulosin 0.4 Mg Capsule PO 0.4 mg HS [facility] Administration Throat Lozenges 1 lozenge 11/03/23 10:53 11/08/23 09:12 Benzocaine/Menthol Lozenge MM 1 lozenge Q2HR PRN Administration Throat pain - Lab Result Lab results reviewed: Yes Fish Bone Diagrams: 11/10/23 04:30 11/10/23 04:30 - Additional Planning Condition/Complexity: Improved My Orders: My Active Orders 11/09/23 07:24 Transfuse RBCs Leukoreduced [RC] .ONCE 11/09/23 09:00 Calcium Carbonate [Tums] 500 mg PO BID 11/09/23 12:00 Meropenem [Merrem] 1 gm Sodium Chloride 0.9% Minibag [Normal Saline 0.9% Minibag] 100 ml IV Q8H 11/09/23 19:04 Telemetry- [RC] Q4HR 11/11/23 05:00 BMP - BASIC METABOLIC PANEL [CHEM] DAILYLAB CBC [CBC - COMP BLD CT W/AUTO DIFF] [HEME] DAILYLAB 11/12/23 05:00 BMP - BASIC METABOLIC PANEL [CHEM] DAILYLAB CBC [CBC - COMP BLD CT W/AUTO DIFF] [HEME] DAILYLAB 11/13/23 05:00 BMP - BASIC METABOLIC PANEL [CHEM] DAILYLAB CBC [CBC - COMP BLD CT W/AUTO DIFF] [HEME] DAILYLAB 11/14/23 05:00 BMP - BASIC METABOLIC PANEL [CHEM] DAILYLAB CBC [CBC - COMP BLD CT W/AUTO DIFF] [HEME] DAILYLAB Consult/Specialty: Other (Talk to eliu and Aaron for transfer arrangement) Plan Discussed with:: Patient Time Spent: 31-60 minutes Subjective - Subjective Patient Reports: Feeling Better, Other (However, mouth pain is worsening. can not tolerate much food. Patient understands we are trying the best to transfer him to [facility] where his oncologist Dr. Karis Peralta ([phone]) works, [facility] transfer coodinator Olivia ([phone]) works on the transfer. Eliu ([phone])) Objective Vital Signs: Vital Signs - 24 hr 11/09/23 11/09/23 11/09/23 08:00 09:00 09:14 Temperature 38.3 C H 37.2 C 37.5 C Heart Rate [ 103 H Brachial] Heart Rate [ 97 Monitoring electrodes] Respiratory 20 21 Rate Blood Pressure 126/66 134/70 H [Right Brachial artery] O2 Saturation 99 97 11/09/23 11/09/23 11/09/23 09:23 11:04 11:15 Temperature 37.5 C 37.7 C 37.8 C Heart Rate [ 101 H Brachial] Heart Rate [ 105 H 15 L Monitoring electrodes] Respiratory 2 L 21 13 Rate Blood Pressure 141/77 H 117/63 108/58 L [Right Brachial artery] O2 Saturation 97 95 95 11/09/23 11/09/23 11/09/23 11:33 13:11 16:00 Temperature 37.4 C 37.1 C 37.0 C Heart Rate [ Brachial] Heart Rate [ 98 92 106 H Monitoring electrodes] Respiratory 20 19 20 Rate Blood Pressure 110/57 L 121/70 144/72 H [Right Brachial artery] O2 Saturation 97 96 95 11/09/23 11/09/23 11/09/23 18:20 18:52 19:09 Temperature 38.1 C H 37.0 C 37.0 C Heart Rate [ Brachial] Heart Rate [ Monitoring electrodes] Respiratory Rate Blood Pressure [Right Brachial artery] O2 Saturation 11/09/23 11/10/23 11/10/23 21:20 00:00 03:55 Temperature 37.2 C 37.2 C 37.9 C Heart Rate [ 96 Brachial] Heart Rate [ 95 102 H Monitoring electrodes] Respiratory 18 16 16 Rate Blood Pressure 129/65 128/70 126/64 [Right Brachial artery] O2 Saturation 97 97 96 11/10/23 05:30 Temperature 36.7 C Heart Rate [ Brachial] Heart Rate [ Monitoring electrodes] Respiratory Rate Blood Pressure [Right Brachial artery] O2 Saturation Oxygen O2 Source Room air I&O (Last 24 Hrs): Intake and Output Totals x24h 11/08/23 11/09/23 11/10/23 23:59 23:59 23:59 Intake Total 2250 1940.274 970.83 Output Total 525 Balance 2250 1415.274 970.83 General: Oriented x3 HEENT: PERRLA, EOMI, Other (mouth sore) Neck: No JVD Neuro: Alert, Non Focal Cardiovascular: Regular rate Respiratory: No respiratory distress Abdomen: Soft Extremities: No edema - Results Results: Laboratory Results WBC 0.3 x10^3/uL (4.8-10.8) L* 11/10/23 04:30 RBC 3.35 10^6/uL (4.70-6.10) L 11/10/23 04:30 Hgb 8.6 g/dL (14.0-18.0) L 11/10/23 04:30 Hct 26.1 % (42.0-52.0) L 11/10/23 04:30 MCV 77.9 fL (80.0-94.0) L 11/10/23 04:30 MCH 25.7 pg (27.0-31.0) L 11/10/23 04:30 MCHC 33.0 g/dL (32.0-36.0) 11/10/23 04:30 RDW 17.4 % (12.0-15.0) H 11/10/23 04:30 Plt Count 32 10^3/uL (130-450) L* 11/10/23 04:30 MPV 10.3 fL (7.4-11.4) 11/09/23 20:00 Neut # (Auto) Not Reportable 11/10/23 04:30 Lymph # (Auto) Not Reportable 11/10/23 04:30 [place]oke # (Auto) Not Reportable 11/10/23 04:30 Eos # (Auto) Not Reportable 11/10/23 04:30 Baso # (Auto) Not Reportable 11/10/23 04:30 Absolute Nucleated RBC Not Reportable 11/10/23 04:30 Total Counted 25 11/10/23 04:30 Band Neuts % (Manual) 8 % (0-10) 11/10/23 04:30 Abnorm Lymph % (Manual) 0 % 11/10/23 04:30 Nucleated RBC % Not Reportable 11/10/23 04:30 Neutrophils # (Manual) 0.2 10^3/uL (1.5-6.6) L* 11/10/23 04:30 Lymphocytes # (Manual) 0.1 10^3/uL (1.5-3.5) L 11/10/23 04:30 Monocytes # (Manual) 0.0 10^3/uL (0.0-1.0) 11/10/23 04:30 Eosinophils # (Manual) 0.0 10^3/uL (0-0.7) 11/10/23 04:30 Basophils # (Manual) 0.0 10^3/uL (0-0.1) 11/10/23 04:30 Differential Comment MANUAL DIFFERENTIAL 11/10/23 04:30 Manual Slide Review Indicated 11/09/23 20:00 WBC Morphology (NORMAL) 11/07/23 04:45 Platelet Estimate DECREASED (<130,000) (NORMAL) 11/10/23 04:30 Platelet Morphology NORMAL APPEARANCE (NORMAL) 11/09/23 20:00 RBC Morph Micro Appear 2+ HYPOCHROMASIA (NORMAL) 1+ MICROCYTOSIS (NORMAL) 11/10/23 04:30 RBC Morph Micro Appear 2+ HYPOCHROMASIA (NORMAL) 1+ MICROCYTOSIS (NORMAL) 11/10/23 04:30 Sodium 135 mmol/L (135-145) 11/10/23 04:30 Potassium 3.5 mmol/L (3.5-4.5) 11/10/23 04:30 Chloride 104 mmol/L (101-111) 11/10/23 04:30 Carbon Dioxide 24 mmol/L (21-32) 11/10/23 04:30 Anion Gap 7.0 (6-13) 11/10/23 04:30 BUN 28 mg/dL (6-20) H 11/10/23 04:30 Creatinine 1.5 mg/dL (0.6-1.3) H 11/10/23 04:30 Estimated GFR (MDRD) 47 (>89) L 11/10/23 04:30 Glucose 106 mg/dL (74-104) H 11/10/23 04:30 Lactic Acid 1.1 mmol/L (0.5-2.2) 11/09/23 20:00 Uric Acid < 1.5 mg/dL (4.4-7.6) L 11/09/23 20:00 Calcium 8.1 mg/dL (8.5-10.3) L 11/10/23 04:30 Phosphorus 2.9 mg/dL (2.5-5.0) 11/09/23 05:15 Magnesium 1.7 mg/dL (1.7-2.3) 11/09/23 05:15 Total Bilirubin 2.0 mg/dL (0.2-1.0) H 11/09/23 20:00 AST 63 IU/L (10-42) H 11/09/23 20:00 ALT 62 IU/L (10-60) H 11/09/23 20:00 Alkaline Phosphatase 274 IU/L (42-121) H 11/09/23 20:00 Lactate Dehydrogenase 566 IU/L (140-271) H 11/09/23 20:00 Total Protein 4.8 g/dL (6.4-8.9) L 11/09/23 20:00 Albumin 2.4 g/dL (3.2-5.5) L 11/09/23 20:00 Globulin 2.4 g/dL (2.1-4.2) 11/09/23 20:00 Albumin/Globulin Ratio 1.0 (1.0-2.2) 11/09/23 20:00 Lipase < 10 U/L (11-82) L 11/02/23 18:50 Urine Color DARK YELLOW 11/02/23 19:30 Urine Clarity HAZY (CLEAR) 11/02/23 19:30 Urine pH 6.0 PH (5.0-7.5) 11/02/23 19:30 Ur Specific Western 1.020 (1.002-1.030) 11/02/23 19:30 Urine Protein 100 mg/dL (NEGATIVE) H 11/02/23 19:30 Urine Glucose (UA) NEGATIVE mg/dL (NEGATIVE) 11/02/23 19:30 Urine Ketones NEGATIVE mg/dL (NEGATIVE) 11/02/23 19:30 Urine Occult Blood LARGE (NEGATIVE) H 11/02/23 19:30 Urine Nitrite NEGATIVE (NEGATIVE) 11/02/23 19:30 Urine Bilirubin NEGATIVE (NEGATIVE) 11/02/23 19:30 Urine Urobilinogen 1 (NORMAL) E.U./dL (NORMAL) 11/02/23 19:30 Ur Leukocyte Esterase SMALL (NEGATIVE) H 11/02/23 19:30 Urine RBC 11-25 /HPF (0-5) H 11/02/23 19:30 Urine WBC 11-25 /HPF (0-3) H 11/02/23 19:30 Ur Squamous Epith Cells NONE SEEN (<= Few) 11/02/23 19:30 Urine Bacteria Few /HPF (None Seen) 11/02/23 19:30 Urine Yeast PRESENT 11/02/23 19:30 Ur Microscopic Review INDICATED 11/02/23 19:30 Urine Culture Comments INDICATED 11/02/23 19:30 Nasal Adenovirus (PCR) NOT DETECTED 11/02/23 20:16 Nasal B. parapertussis DNA (PCR) NOT DETECTED 11/02/23 20:16 Nasal Coronavir 229E PCR NOT DETECTED 11/02/23 20:16 Nasal Coronavir HKU1 PCR NOT DETECTED 11/02/23 20:16 Nasal Coronavir NL63 PCR NOT DETECTED 11/02/23 20:16 Nasal Coronavir OC43 PCR NOT DETECTED 11/02/23 20:16 Nasal Enterovir/Rhinovir PCR NOT DETECTED 11/02/23 20:16 Nasal Influenza B PCR NOT DETECTED 11/02/23 20:16 Nasal Influenza A PCR NOT DETECTED 11/02/23 20:16 Nasal Parainfluen 1 PCR NOT DETECTED 11/02/23 20:16 Nasal Parainfluen 2 PCR NOT DETECTED 11/02/23 20:16 Nasal Parainfluen 3 PCR NOT DETECTED 11/02/23 20:16 Nasal Parainfluen 4 PCR NOT DETECTED 11/02/23 20:16 Nasal RSV (PCR) NOT DETECTED 11/02/23 20:16 Nasal B.pertussis DNA PCR NOT DETECTED 11/02/23 20:16 Nasal C.pneumoniae (PCR) NOT DETECTED 11/02/23 20:16 Srinivas Human Metapneumo PCR NOT DETECTED 11/02/23 20:16 Nasal M.pneumoniae (PCR) NOT DETECTED 11/02/23 20:16 Nasal SARS-CoV-2 (PCR) NOT DETECTED 11/02/23 20:16 Last Dose Date UNK 11/05/23 14:00 Last Dose Time K 11/05/23 14:00 Vancomycin Trough 14.9 ug/mL 11/05/23 14:00 Blood Type O POSITIVE 11/08/23 12:09 Blood Type Recheck O POSITIVE 11/02/23 19:30 Antibody Screen NEGATIVE 11/08/23 12:09 Crossmatch IS Only See Detail 11/08/23 12:09 Sepsis Event Note (H) - Evaluation Current Stage of Sepsis: Ruled out ABX Reporting Has patient been on IV antibiotics over the past 48 hours?: Yes
[2023-11-10] MEDS ORDERED: SALIVA STIMULANT SPRAY 44.3 ML BOTTLE PO SCH (08:00)
[2023-11-10] MEDS: LIDOCAINE VISCOUS 2% 15 ML UDC MM SCH (09:15)
[2023-11-10] MEDS: SODIUM CHLORIDE 0.9% 1,000 ML IV ONE (15:14)
--- NOTE | 2023-11-10 17:23 | CT Report ---
PROCEDURE: Abdomen/Pelvis WO INDICATIONS: bacteremia work up TECHNIQUE: A CT scan of the abdomen and pelvis was performed without the use of intravenous contrast. Images we re recorded and evaluated at appropriate window settings. Reformats: coronal and sagittal. For radiat ion dose reduction, the following was used: automated exposure control, adjustment of mA and/or kV ac cording to patient size. COMPARISON: CT chest from today, CT abdomen and pelvis with contrast dated 09/17/2023, CT IVP dated n umerous 08/25/2023 FINDINGS: Image quality: Diagnostic. Lower chest: Significant increase in left pleural fluid, mild to moderate, with associated compressiv e atelectasis in the left lung base. Development of trace right pleural fluid. Dialysis catheter in p lace. Interval increase in pericardial fluid, mild to moderate. Mild cardiomegaly. Liver: No contour-deforming mass. Gallbladder and biliary tree: No radiopaque stones or wall thickening. No biliary dilation. Spleen: No splenomegaly. Pancreas: No pancreatic ductal dilation. Adrenals: No adrenal nodule. Kidneys and ureters: Unchanged large left psoas muscle mass. Interval removal of left nephrostomy. Mo derate to severe left hydronephrosis, likely secondary to obstruction of the ureter by the psoas musc le mass. No right hydronephrosis. Stomach, bowel and peritoneum: No bowel distension. Trace pelvic ascites. Lymph nodes: No central or retroperitoneal adenopathy. Vessels: No infrarenal aortic aneurysm. PELVIS Reproductive organs: Moderate prostate enlargement.. Bladder: No wall thickness, accounting for underdistention. Pelvic lymph nodes: No pelvic adenopathy by size criteria. Bones: No aggressive osseous abnormality. Small sclerotic foci in the L1, L2, and S1 vertebrae and pr oximal right femur and symphysis pubis are likely benign bone islands. There are stable.. Other: Bilateral fat-containing inguinal hernias. IMPRESSION: 1. Known large left psoas muscle mass. 2. Removal of left nephrostomy with moderate to severe left hydronephrosis. 3. Increase in left pleural effusion, mild to moderate, with left basilar atelectasis. Development of minimal right pleural effusion. 4. Interval increase in pericardial effusion, mild to moderate. There is also mild cardiomegaly. 5. Trace pelvic ascites. Reviewed by: Alex Peralta MD on 11/10/2023 5:22 PM PDT Approved by: Alex Peralta MD on 11/10/2023 5:22 PM PDT Station ID: [id number]
--- NOTE | 2023-11-10 17:28 | CT Report ---
PROCEDURE: Chest WO INDICATIONS: bacteremia work up TECHNIQUE: A CT scan of the chest was performed. Intravenous contrast media was not administered. Images were re corded and evaluated at appropriate window settings. Reformats: axial MIP of the chest, coronal and s agittal. For radiation dose reduction, the following was used: automated exposure control, adjustment of mA and/or kV according to patient size. COMPARISON: CT abdomen and pelvis from today, CT abdomen and pelvis with contrast dated 09/17/2023. FINDINGS: Image quality: Patient motion artifact. Chest wall and lower neck: No thyroid nodule which requires sonographic follow up. No axillary or sup raclavicular adenopathy by size. A right chest Port-A-Cath is in place, with its tip present at the S VC right atrial junction. Lungs and pleura: Interval increase in left pleural effusion, mild to moderate, with associated compr essive atelectasis in the left lung base. Development of minimal right pleural effusion. Mediastinum: Heart size is slightly enlarged. Interval increase in pericardial effusion, mild to mode rate. 4 mm nodule, right upper lobe, image 33/.. No large vessel abnormality. No mediastinal adenopat hy by size criteria. Bones: No aggressive osseous abnormality. Upper Abdomen: Unremarkable. IMPRESSION: 1.. Increase in left pleural effusion, mild to moderate, with compressive left basilar atelectasis. 2. Minimal right pleural effusion. 3. Mild cardiomegaly. 4. Interval increase in pericardial effusion, mild to moderate. 5. 4 mm pulmonary nodule, right upper lobe 6. No airspace consolidation. Reviewed by: Alex Peralta MD on 11/10/2023 5:26 PM PDT Approved by: Alex Peralta MD on 11/10/2023 5:26 PM PDT Station ID: [id number]
--- NOTE | 2023-11-10 17:55 | DISCHARGE SUMMARY ---
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 Patient reports sxs started around 4 days ago. He recently had chemo. He subsequently noted malaise and weakness. He mentions one episode of getting out of his car and passing out however that was one his way to chemotherapy. Patient had subjective fever and came into the ED for evaluation. No cough. No runny nose. No sore throat. No n/v/d. No dysuria. No rash. No travel. No sick contact. Patient had been on oral abx outpatient. Here in the ED, patient is noted for sever neutropenia. plt 17K. no acute bleed. he has a chest port. (H&P Per Dr. [facility] on 11/03/2023) - CONSULTS | PROCEDURES Consultations: discussed with patient's oncology group - HOSPITAL COURSE Hospital Course: Patient has a follicular lymphoma. His last dose of chemotherapy was on 10/26/2023 with R-CHOP (rituximab, cyclophosphamide, doxorubicin and prednisone), follows Dr. Karis Peralta ([phone]). Had left thumb "Paronychia" s/p I&D at [facility] on 10/31/2023. Patient presented to [facility] on 11/03/2023 for fever and chills. Was admitted for Neutropenic fever, given cefepime and vancomycin. Two sets of blood cultures collected on November 02, 2023 are growing Pseudomonas aeruginosa and it appears to be sensitive to cefepime. Vancomycin was discontinued on 11/08/2023. With persistent fever episode, with most recent one on 11/09/2023 pm with T 38.5. Cefepime was switched to Merepenem on 11/09/2023. Repeat blood culture including one set from the med port collected on 11/08/2023 NGTD. Pancytopenia is not improving, regarding the possibility of giving him colony- stimulating factors was discussed with his oncologist's group (his oncologist is Dr. Karis Peralta [phone]) and given his type of cancer it was not recommended and should be avoided. WBC 0.1-->0.2-->0.3K with ANC 25. Patient received 4 units of PRBC and 4 units of platelets, Hb improved to 8.3, platelet 32. Patient has severe chemo induced Mucositis, aggressive oral care, lidocain vascus, Magic mouthwash have been used, not much improvement. Patient has poor oral intake. Renal function declined, with Cr goes up to 1.5, no significant decrease of urine output. Elevated liver enzyme noted, likely secondary to bacteremia, SIRS. Although, supected infection source is the paronychia, further workup performed. CT chest, abdomen/pelvis shows: Left pleural effusion with compressive left basilar atelectasis. Increase in pericardial effusion. moderate to severe left hydronephrosis, known large left psoas muscle mass. [facility] has limited resources for doing thoracentisis in a timely manner. Patient will be benefiet of higher level care with ID and oncology service. Patient is accepted by [facility] Hospitalist Dr. Sridhar Smith on 11/10/2023 for transfer. Once bed available, patient will be transferred over. Patient is hymodynamically stable for transfer. - ALLERGIES Allergies/Adverse Reactions: Allergies Allergy/AdvReac Type Severity Reaction Status Date / Time methocarbamol AdvReac Nausea Verified 11/02/23 18:20 - MEDICATIONS Home Medications: Ambulatory Orders Medication Instructions Recorded Confirmed Ondansetron [Ondansetron Odt] 8 mg PO BID PRN 07/12/23 11/03/23 Tamsulosin [Flomax] 0.4 mg PO HS 07/12/23 11/03/23 oxyCODONE [Roxicodone] 1 - 1.5 tab PO Q4HR PRN 08/25/23 11/03/23 Brimonidine Tartrate 1 drops EACHEYE TID 11/03/23 11/03/23 Gabapentin [Neurontin] 200 mg PO HS 11/03/23 11/03/23 OLANZapine [Zyprexa] 2.5 mg PO HS 11/03/23 11/03/23 allopurinoL [Allopurinol] 300 mg PO BID 11/03/23 11/03/23 amLODIPine [Norvasc] 5 mg PO DAILY 11/03/23 11/03/23 - PHYSICAL EXAM AT DISCHARGE General Appearance: positive: Alert, Moderate distress (due to discomfort) Eyes Bilateral: positive: PERRL, EOMI Neck: positive: Nml inspection, No JVD Respiratory: positive: Chest non-tender, No respiratory distress Cardiovascular: positive: Regular rate & rhythm Peripheral Pulses: positive: 2+ Abdomen: positive: Non-tender, Nml bowel sounds Skin: positive: Warm Neurologic/Psychiatric: positive: Oriented x3, CN's nml (2-12) - LABS Result Diagrams: 11/10/23 04:30 11/10/23 04:30 - DIAGNOSTIC IMAGING Diagnostic Imaging Results: Final report reviewed - SEPSIS Current Stage of Sepsis: Sepsis (SIRS plus bacteremia) Possible source of Sepsis: Skin/soft tissue (left thumb) - FOLLOW UP Follow Up: [facility] inpatient unit - TIME SPENT Time Spent in Discharge (Minutes): 55
[2023-11-11] MEDS ORDERED: SODIUM CHLORIDE 0.9% MINIBAG 100 ML IV ONE (03:48)
[2023-11-11 05:21] LABS: HGB - HEMOGLOBIN 8.2 g/dL (14.0-18.0); LYMPHOCYTES % (AUTO) 18.4 %; MEAN CORPUSCULAR HEMOGLOBIN 24.8 pg (27.0-31.0); MEAN CORPUSCULAR HGB CONC 31.5 g/dL (32.0-36.0); MEAN CORPUSCULAR VOLUME 78.5 fL (80.0-94.0); MONOCYTES % (AUTO) 13.2 %; NEUTROPHILS % (AUTO) 60.5 %; RED BLOOD COUNT 3.31 10^6/uL (4.70-6.10); RED CELL DISTRIBUTION WIDTH 17.4 % (12.0-15.0)
[2023-11-11 05:34] LABS: PLT - PLATELET COUNT 24 10^3/uL (130-450); WHITE BLOOD COUNT 0.4 x10^3/uL (4.8-10.8)
[2023-11-11 05:35] LABS: ABNORMAL LYMPHS % (MANUAL) 0 %
[2023-11-11 05:49] LABS: CALCIUM 8.1 mg/dL (8.5-10.3); CREATININE 1.4 mg/dL (0.6-1.3); POTASSIUM 3.5 mmol/L (3.5-4.5)
[2023-11-11 05:51] LABS: BAND NEUTROPHILS % (MANUAL) 4 %; LYMPHOCYTES # (MANUAL) 0.1 10^3/uL (1.5-3.5); LYMPHOCYTES % (MANUAL) 32 %; MONOCYTES # (MANUAL) 0.1 10^3/uL (0.0-1.0); NEUTROPHILS # (MANUAL) 0.2 10^3/uL (1.5-6.6)
[2023-11-11 05:52] LABS: DIFFERENTIAL COMMENT MANUAL DIFFERENTIAL; PLATELET ESTIMATE, MANUAL DECREASED (<130,000) (NORMAL)
[2023-11-11] MEDS: PANTOPRAZOLE 40 MG TABLET PO SCH (06:25)
--- NOTE | 2023-11-11 07:49 | PROVIDER PROGRESS NOTE ---
Assessment/Plan - Problem List (1) Neutropenic fever Assessment/Plan: Not improving (2) Pancytopenia Assessment/Plan: Platelet 27, ordered two units of platelets (3) Bacteremia due to Pseudomonas Assessment/Plan: on Meropenem (4) Mucositis (ulcerative) due to antineoplastic therapy Assessment/Plan: worsening, may need NG tube feeding (5) Hypoalbuminemia due to protein-calorie malnutrition Assessment/Plan: need NG tube feeding - Current Meds Current Meds: Current Medications Generic Name Dose Route Start Last Admin Trade Name Freq PRN Reason Stop Dose Admin Acetaminophen 650 mg 11/03/23 01:53 11/10/23 03:53 Acetaminophen 325 Mg Tablet PO 650 mg Q4HR PRN Administration Pain 1 to 4, or Fever Allopurinol 300 mg 11/03/23 09:00 11/10/23 22:13 Allopurinol 100 Mg Tablet PO 300 mg BID [facility] Administration Amlodipine Besylate 5 mg 11/08/23 18:00 11/10/23 22:12 Amlodipine 5 Mg Tablet PO 5 mg BID [facility] Administration Brimonidine Tartrate 1 drops 11/08/23 22:00 11/11/23 06:25 Brimonidine 0.2% Ophth Drops 5 Ml EACHEYE 1 drops TID [facility] Administration Calcium Carbonate/Glycine 500 mg 11/09/23 09:00 11/10/23 22:13 Calcium Carbonate Chew 500 Mg Tablet PO 500 mg BID [facility] Administration Docusate Sodium 250 - 500 mg 11/03/23 16:00 11/10/23 09:25 Docusate Sodium 250 Mg Capsule PO Not Given DAILY [facility] Gabapentin 200 mg 11/03/23 21:00 11/10/23 22:12 Gabapentin 100 Mg Capsule PO 200 mg HS [facility] Administration Sodium Chloride 1,000 mls @ 83.333 mls/hr 11/08/23 20:00 11/11/23 04:05 Normal Saline 0.45% IV 83.333 mls/hr .Q12H [facility] Administration Meropenem 1 gm/ Sodium 100 mls @ 200 mls/hr 11/09/23 12:00 11/11/23 04:45 Chloride IV Infused Q8H [facility] Infusion Lidocaine HCl 5 ml 11/10/23 08:00 11/11/23 05:15 Lidocaine Viscous 2% 15 Ml Udc MM 5 ml Q4H [facility] Administration Morphine Sulfate 10 mg 11/08/23 11:53 11/10/23 22:15 Morphine Darcy 10 Mg/0.5 Ml Oral Syringe PO 10 mg Q4HR PRN Administration Moderate Pain (Level 4-6) Multi-Ingredient Mouthwash/Gargle 30 ml 11/07/23 16:00 11/11/23 04:03 Magic Mouthwash 120 Ml Bottle PO Not Given Q4H [facility] Multi-Ingredient Ointment 1 applic 11/03/23 10:53 11/07/23 09:00 Zinc Oxide 12% Oint 57 Gm Tube TOP 1 applic PRN PRN Administration Skin Care Multivitamins/Minerals 1 tab 11/07/23 17:00 11/10/23 09:14 Multivitamin W/Minerals Tablet PO 1 tab DAILYWM [facility] Administration Olanzapine 2.5 mg 11/03/23 21:00 11/10/23 22:11 Olanzapine Odt 5 Mg Tablet TL 2.5 mg HS [facility] Administration Oxycodone HCl 5 mg 11/03/23 01:53 11/10/23 19:54 Oxycodone 5 Mg Tablet PO 5 mg Q4HR PRN Administration Pain 8 to 10 Pantoprazole Sodium 40 mg 11/11/23 07:00 11/11/23 06:25 Pantoprazole 40 Mg Tablet PO 40 mg QDAC [facility] Administration Polyethylene Glycol 17 gm 11/03/23 16:00 11/10/23 09:25 Polyethylene Glycol 3350 17 Gm Packet PO Not Given DAILY [facility] Senna 8.6 - 17.2 mg 11/03/23 16:00 11/10/23 09:25 Senna 8.6 Mg Tablet PO Not Given DAILY [facility] Sodium Chloride 10 ml 11/03/23 09:00 11/11/23 01:16 Sodium Chloride Flush 0.9% 10 Ml Syringe IVP Not Given 0100,0900,1700 [facility] Tamsulosin HCl 0.4 mg 11/03/23 21:00 11/10/23 22:13 Tamsulosin 0.4 Mg Capsule PO 0.4 mg HS [facility] Administration Throat Lozenges 1 lozenge 11/03/23 10:53 11/08/23 09:12 Benzocaine/Menthol Lozenge MM 1 lozenge Q2HR PRN Administration Throat pain - Lab Result Fish Bone Diagrams: 11/11/23 05:03 11/11/23 05:03 - Additional Planning My Orders: My Active Orders 11/10/23 08:00 Lidocaine Viscous 2% [Xylocaine Viscous 2%] 5 ml MM Q4H 11/10/23 Lunch Full Liquid Diet [DIET] 11/11/23 BLOOD TYPE Routine GLUCOSE BODY FLUID [REFLAB] Routine LD BODY FLUID [REFLAB] Routine PLATELETPHERESIS LEUKO REDUCED Routine PROTEIN BODY FLUID [REFLAB] Routine 11/11/23 07:00 Pantoprazole [Protonix] 40 mg PO QDAC 11/11/23 07:34 Thoracentesis Puncture [US] Routine 11/11/23 07:46 Transfuse Platelet Pheresis Pk [RC] .ONCE 11/11/23 07:48 CELL COUNT, BF [BF] Routine CUL,BODY FLUID(AEROBIC) [RM] Routine 11/11/23 10:00 Saliva Stimulant Marty [Biotene Moisturizing Mouth Marty] 2 sprays PO Q4H 11/12/23 05:00 BMP - BASIC METABOLIC PANEL [CHEM] DAILYLAB CBC [CBC - COMP BLD CT W/AUTO DIFF] [HEME] DAILYLAB 11/13/23 05:00 BMP - BASIC METABOLIC PANEL [CHEM] DAILYLAB CBC [CBC - COMP BLD CT W/AUTO DIFF] [HEME] DAILYLAB 11/14/23 05:00 BMP - BASIC METABOLIC PANEL [CHEM] DAILYLAB CBC [CBC - COMP BLD CT W/AUTO DIFF] [HEME] DAILYLAB Subjective - Subjective Patient Reports: Other (about the same) Objective Vital Signs: Vital Signs - 24 hr 11/10/23 11/10/23 11/10/23 08:00 15:34 16:52 Temperature 36.5 C 37.1 C Heart Rate [ 86 101 H Brachial] Heart Rate [ 99 Monitoring electrodes] Respiratory 18 16 24 Rate Blood Pressure 93/66 122/78 130/67 [Right Brachial artery] O2 Saturation 100 98 97 11/10/23 11/10/23 11/11/23 20:14 23:36 05:03 Temperature 37.3 C 36.8 C 37.2 C Heart Rate [ 102 H 103 H 100 Brachial] Heart Rate [ Monitoring electrodes] Respiratory 20 20 14 Rate Blood Pressure 138/64 H 142/77 H 117/66 [Right Brachial artery] O2 Saturation 96 99 96 Oxygen O2 Source Room air I&O (Last 24 Hrs): Intake and Output Totals x24h 11/09/23 11/10/23 11/11/23 23:59 23:59 23:59 Intake Total 2345.327 0614.937 1100 Output Total 525 Balance 4142.722 6722.937 1100 General: Alert, Oriented x3 HEENT: PERRLA, EOMI, Other (lips dry, has bleeding,) Neck: No JVD Neuro: Alert, Non Focal Cardiovascular: Regular rate Respiratory: No respiratory distress Abdomen: No tenderness Extremities: No edema - Results Results: Laboratory Results WBC 0.4 x10^3/uL (4.8-10.8) L* 11/11/23 05:03 RBC 3.31 10^6/uL (4.70-6.10) L 11/11/23 05:03 Hgb 8.2 g/dL (14.0-18.0) L 11/11/23 05:03 Hct 26.0 % (42.0-52.0) L 11/11/23 05:03 MCV 78.5 fL (80.0-94.0) L 11/11/23 05:03 MCH 24.8 pg (27.0-31.0) L 11/11/23 05:03 MCHC 31.5 g/dL (32.0-36.0) L 11/11/23 05:03 RDW 17.4 % (12.0-15.0) H 11/11/23 05:03 Plt Count 24 10^3/uL (130-450) L* 11/11/23 05:03 MPV 10.3 fL (7.4-11.4) 11/09/23 20:00 Neut # (Auto) Not Reportable 11/11/23 05:03 Lymph # (Auto) Not Reportable 11/11/23 05:03 Osborne # (Auto) Not Reportable 11/11/23 05:03 Eos # (Auto) Not Reportable 11/11/23 05:03 Baso # (Auto) Not Reportable 11/11/23 05:03 Absolute Nucleated RBC Not Reportable 11/11/23 05:03 Total Counted 25 11/11/23 05:03 Band Neuts % (Manual) 4 % (0-10) 11/11/23 05:03 Abnorm Lymph % (Manual) 0 % 11/11/23 05:03 Nucleated RBC % Not Reportable 11/11/23 05:03 Neutrophils # (Manual) 0.2 10^3/uL (1.5-6.6) L* 11/11/23 05:03 Lymphocytes # (Manual) 0.1 10^3/uL (1.5-3.5) L 11/11/23 05:03 Monocytes # (Manual) 0.1 10^3/uL (0.0-1.0) 11/11/23 05:03 Eosinophils # (Manual) 0.0 10^3/uL (0-0.7) 11/11/23 05:03 Basophils # (Manual) 0.0 10^3/uL (0-0.1) 11/11/23 05:03 Differential Comment MANUAL DIFFERENTIAL 11/11/23 05:03 Manual Slide Review Indicated 11/09/23 20:00 WBC Morphology (NORMAL) 11/07/23 04:45 Platelet Estimate DECREASED (<130,000) (NORMAL) 11/11/23 05:03 Platelet Morphology NORMAL APPEARANCE (NORMAL) 11/09/23 20:00 RBC Morph Micro Appear 2+ HYPOCHROMASIA (NORMAL) 1+ MICROCYTOSIS (NORMAL) 11/11/23 05:03 RBC Morph Micro Appear 2+ HYPOCHROMASIA (NORMAL) 1+ MICROCYTOSIS (NORMAL) 11/11/23 05:03 Sodium 134 mmol/L (135-145) L 11/11/23 05:03 Potassium 3.5 mmol/L (3.5-4.5) 11/11/23 05:03 Chloride 105 mmol/L (101-111) 11/11/23 05:03 Carbon Dioxide 25 mmol/L (21-32) 11/11/23 05:03 Anion Gap 4.0 (6-13) L 11/11/23 05:03 BUN 27 mg/dL (6-20) H 11/11/23 05:03 Creatinine 1.4 mg/dL (0.6-1.3) H 11/11/23 05:03 Estimated GFR (MDRD) 50 (>89) L 11/11/23 05:03 Glucose 97 mg/dL (74-104) 11/11/23 05:03 Lactic Acid 1.1 mmol/L (0.5-2.2) 11/09/23 20:00 Uric Acid < 1.5 mg/dL (4.4-7.6) L 11/09/23 20:00 Calcium 8.1 mg/dL (8.5-10.3) L 11/11/23 05:03 Phosphorus 2.9 mg/dL (2.5-5.0) 11/09/23 05:15 Magnesium 1.7 mg/dL (1.7-2.3) 11/09/23 05:15 Total Bilirubin 2.0 mg/dL (0.2-1.0) H 11/09/23 20:00 AST 63 IU/L (10-42) H 11/09/23 20:00 ALT 62 IU/L (10-60) H 11/09/23 20:00 Alkaline Phosphatase 274 IU/L (42-121) H 11/09/23 20:00 Lactate Dehydrogenase 566 IU/L (140-271) H 11/09/23 20:00 Total Protein 4.8 g/dL (6.4-8.9) L 11/09/23 20:00 Albumin 2.4 g/dL (3.2-5.5) L 11/09/23 20:00 Globulin 2.4 g/dL (2.1-4.2) 11/09/23 20:00 Albumin/Globulin Ratio 1.0 (1.0-2.2) 11/09/23 20:00 Lipase < 10 U/L (11-82) L 11/02/23 18:50 Urine Color DARK YELLOW 11/02/23 19:30 Urine Clarity HAZY (CLEAR) 11/02/23 19:30 Urine pH 6.0 PH (5.0-7.5) 11/02/23 19:30 Ur Specific Duarte 1.020 (1.002-1.030) 11/02/23 19:30 Urine Protein 100 mg/dL (NEGATIVE) H 11/02/23 19:30 Urine Glucose (UA) NEGATIVE mg/dL (NEGATIVE) 11/02/23 19:30 Urine Ketones NEGATIVE mg/dL (NEGATIVE) 11/02/23 19:30 Urine Occult Blood LARGE (NEGATIVE) H 11/02/23 19:30 Urine Nitrite NEGATIVE (NEGATIVE) 11/02/23 19:30 Urine Bilirubin NEGATIVE (NEGATIVE) 11/02/23 19:30 Urine Urobilinogen 1 (NORMAL) E.U./dL (NORMAL) 11/02/23 19:30 Ur Leukocyte Esterase SMALL (NEGATIVE) H 11/02/23 19:30 Urine RBC 11-25 /HPF (0-5) H 11/02/23 19:30 Urine WBC 11-25 /HPF (0-3) H 11/02/23 19:30 Ur Squamous Epith Cells NONE SEEN (<= Few) 11/02/23 19:30 Urine Bacteria Few /HPF (None Seen) 11/02/23 19:30 Urine Yeast PRESENT 11/02/23 19:30 Ur Microscopic Review INDICATED 11/02/23 19:30 Urine Culture Comments INDICATED 11/02/23 19:30 Nasal Adenovirus (PCR) NOT DETECTED 11/02/23 20:16 Nasal B. parapertussis DNA (PCR) NOT DETECTED 11/02/23 20:16 Nasal Coronavir 229E PCR NOT DETECTED 11/02/23 20:16 Nasal Coronavir HKU1 PCR NOT DETECTED 11/02/23 20:16 Nasal Coronavir NL63 PCR NOT DETECTED 11/02/23 20:16 Nasal Coronavir OC43 PCR NOT DETECTED 11/02/23 20:16 Nasal Enterovir/Rhinovir PCR NOT DETECTED 11/02/23 20:16 Nasal Influenza B PCR NOT DETECTED 11/02/23 20:16 Nasal Influenza A PCR NOT DETECTED 11/02/23 20:16 Nasal Parainfluen 1 PCR NOT DETECTED 11/02/23 20:16 Nasal Parainfluen 2 PCR NOT DETECTED 11/02/23 20:16 Nasal Parainfluen 3 PCR NOT DETECTED 11/02/23 20:16 Nasal Parainfluen 4 PCR NOT DETECTED 11/02/23 20:16 Nasal RSV (PCR) NOT DETECTED 11/02/23 20:16 Nasal B.pertussis DNA PCR NOT DETECTED 11/02/23 20:16 Nasal C.pneumoniae (PCR) NOT DETECTED 11/02/23 20:16 Srinivas Human Metapneumo PCR NOT DETECTED 11/02/23 20:16 Nasal M.pneumoniae (PCR) NOT DETECTED 11/02/23 20:16 Nasal SARS-CoV-2 (PCR) NOT DETECTED 11/02/23 20:16 Last Dose Date UNK 11/05/23 14:00 Last Dose Time UNK 11/05/23 14:00 Vancomycin Trough 14.9 ug/mL 11/05/23 14:00 Blood Type O POSITIVE 11/08/23 12:09 Blood Type Recheck O POSITIVE 11/02/23 19:30 Antibody Screen NEGATIVE 11/08/23 12:09 Crossmatch IS Only See Detail 11/08/23 12:09 Sepsis Event Note (H) - Evaluation Current Stage of Sepsis: Sepsis (SIRS plus bacteremia) Possible source of Sepsis: positive: Skin/soft tissue (left thumb) ABX Reporting Has patient been on IV antibiotics over the past 48 hours?: Yes
[2023-11-11] MEDS: SALIVA STIMULANT SPRAY 44.3 ML BOTTLE PO SCH (11:09)
[2023-11-11 13:11] VITALS: BP 129/65; O2SAT 99
== END 2023-11-11 13:30 | disposition short-term general hospital (02) | DRG 808 ==
LOC: ED 18:03 → MS2 11-03 01:53
PROVIDERS: ADMIT Internal Medicine; ATTEND Internal Medicine
PROC: 6A550Z2 Pheresis of Platelets, Single (ICD-10-PCS; principal; 2023-11-03)
PROC: 30233N1 Transfusion of Nonautologous Red Blood Cells into Peripheral Vein, Percutaneous Approach (ICD-10-PCS; 2023-11-03)
DX: D70.9 Neutropenia, unspecified (principal); A41.52 Sepsis due to Pseudomonas; R03.1 Nonspecific low blood-pressure reading; R55 Syncope and collapse; J90 Pleural effusion, not elsewhere classified; N30.00 Acute cystitis without hematuria; N17.9 Acute kidney failure, unspecified; Z20.822 Contact with and (suspected) exposure to COVID-19; Z92.21 Personal history of antineoplastic chemotherapy; J98.11 Atelectasis; I31.39 Other pericardial effusion (noninflammatory); N13.30 Unspecified hydronephrosis; C85.90 Non-Hodgkin lymphoma, unspecified, unspecified site; E46 Unspecified protein-calorie malnutrition; R50.81 Fever presenting with conditions classified elsewhere; D61.818 Other pancytopenia; K12.31 Oral mucositis (ulcerative) due to antineoplastic therapy; T45.1X5A Adverse effect of antineoplastic and immunosuppressive drugs, initial encounter; N40.0 Benign prostatic hyperplasia without lower urinary tract symptoms; E78.00 Pure hypercholesterolemia, unspecified; I10 Essential (primary) hypertension; E88.09 Other disorders of plasma-protein metabolism, not elsewhere classified; Z68.27 Body mass index [BMI] 27.0-27.9, adult; Z79.899 Other long term (current) drug therapy
CPT/HCPCS: 36415; 71045; 71250; 74176; 80048; 80053; 80202; 81001; 83605; 83615; 83690; 83735; 84100; 84550; 85025; 86850; 86900; 86901; 86920; 87040; 87086; 87154; 87181; 87633; 93005; 96361; 96365; 99285; A9270; J2185; J3370; P9037; P9040; P9047; 81003; 82945; 84157